=== PATIENT | female | born 1960 | race Caucasian/White ===

== ENCOUNTER → 2017-11-23 16:36 | Outpatient (CLI) | payer OTHER, SELFPAY ==
[2017-11-23 17:54] LABS: Anion Gap 9 (5-15); BUN 15 mg/dL (7-18); BUN/Creat Ratio 17.7 RATIO (10-20); Calcium,Total 8.9 mg/dL (8.5-10.1); Chloride 99 mmol/L (98-107); Creatinine, Serum 0.85 mg/dL (0.55-1.02); EST Glomerular Filtration Rate 74 mL/min (>60); Est Glom Filt Rate - Afr Amer 90 mL/min (>60); Glucose 141 mg/dL (74-106); Potassium 3.2 mmol/L (3.5-5.1); Sodium Level 138 mmol/L (136-145)
[2017-11-23 18:00] LABS: Hemoglobin A1c 8.7 % (4.2-6.3)
== END ==
PROVIDERS: Family Provider Internal Medicine; PCP Internal Medicine; Visit Provider Internal Medicine
DX: I10 Essential (primary) hypertension (principal); E11.9 Type 2 diabetes mellitus without complications
CPT/HCPCS: 36415; 80048; 83036

== ENCOUNTER → 2017-11-27 15:58 | Outpatient (CLI) | payer OTHER, SELFPAY ==
[2017-11-27 19:04] LABS: Microalbumin,Random Urine 5.3 mg/L (NO RANGE EST.); Microalbumin:Creatinine Ratio 20.8 mg/g CRE (<30 mg/g CRE)
== END ==
PROVIDERS: Family Provider Internal Medicine; PCP Internal Medicine; Visit Provider Internal Medicine
DX: E11.9 Type 2 diabetes mellitus without complications (principal)
CPT/HCPCS: 82043; 82570

== ENCOUNTER → 2018-08-14 12:01 | Outpatient (CLI) | payer OTHER, SELFPAY ==
[2018-08-14 14:06] LABS: ALB/GLOB Ratio 0.8 RATIO (0.9-2.4); AST(SGOT) 11 U/L (15-37); Alanine Aminotransfer ALT/SGPT 14 U/L (13-56); Albumin, Serum 3.2 g/dL (3.2-5.0); Alkaline Phosphatase 79 U/L (45-117); Anion Gap 11 (5-15); BUN 18 mg/dL (7-18); BUN/Creat Ratio 32.8 RATIO (10-20); Calcium,Total 9.1 mg/dL (8.5-10.1); Chloride 103 mmol/L (98-107); Creatinine, Serum 0.55 mg/dL (0.55-1.02); EST Glomerular Filtration Rate 122 mL/min (>60); Est Glom Filt Rate - Afr Amer 147 mL/min (>60); Globulin 3.8 g/dL (2.2-4.2); Glucose 110 mg/dL (74-106); Potassium 3.7 mmol/L (3.5-5.1); Sodium Level 142 mmol/L (136-145)
[2018-08-14 14:09] LABS: Hemoglobin A1c 6.3 % (4.2-6.3)
[2018-08-16 11:20] LABS: Cholesterol 136 mg/dL (200); High Density Lipoprotein 43 mg/dL; Triglycerides 146 mg/dL; Very Low Density Lipoprotein 29 mg/dL (5-40)
== END ==
PROVIDERS: Family Provider Internal Medicine; PCP Internal Medicine; Referring Provider Internal Medicine; Visit Provider Internal Medicine
DX: Z00.00 Encounter for general adult medical examination without abnormal findings (principal)
CPT/HCPCS: 36415; 80053; 80061; 83036

== ENCOUNTER → 2018-09-12 08:35 | Outpatient (CLI) | payer OTHER, SELFPAY ==
--- NOTE | 2018-09-12 08:37 | BI_ITS ---
MAMMOGRAPHY - BILATERAL SCREENING REASON FOR EXAM: Female, 58 years old. Routine annual screening examination. PERTINENT HISTORY: Mother with breast cancer. TECHNIQUE: Digital bilateral breast carmela (3D mammographic acquisition) in the CC and MLO projections. 2-D mediolateral oblique (MLO) and craniocaudad (CC) views of both breasts were obtained. CAD: Full Field Digital Mammography with Computer Added Detection was performed. COMPARISON: Comparison is made with prior study dated August 29, 2017 and August 30, 2016. FINDINGS: Breast Composition: The breasts are heterogeneously dense, which may obscure small masses. There are no dominant masses or suspicious calcifications. No other significant abnormalities are identified. There has been no significant change since the prior study. BI/SCREENING MAMM (CAD), BILAT IMPRESSION: Stable bilateral screening mammogram. Yearly follow-up mammogram recommended. (A) ASSESSMENT CATEGORY: BIRADS Category 1: Negative. A letter regarding these results will be sent to the patient by the facility within 30 days. Approximately 10% of breast cancers are not detected by mammography. A normal mammogram should not delay biopsy of a clinically suspicious abnormality. [id number] Electronically Signed: Kiran Brooks MD at 10:13 EST Tel [phone], Service support ,
== END ==
PROVIDERS: Family Provider Internal Medicine; PCP Internal Medicine; Visit Provider Internal Medicine
DX: Z12.31 Encounter for screening mammogram for malignant neoplasm of breast (principal)
CPT/HCPCS: 77063; 77067

== ENCOUNTER → 2019-07-23 | Outpatient (CLI) | payer OTHER, SELFPAY ==
[2019-07-23 13:36] VITALS: BMI 38.4
[2019-07-23 15:34] LABS: Absolute Lymphocyte Count 0.69 X10^3/uL (0.83-4.51); Absolute Neutrophil Count 4.1 X10^3/uL (2.0-7.7); Basophil# 0.02 X10^3/uL; Basophil% 0.3 % (0-1); Eosinophils% 3.5 % (0-5); Hematocrit 41.8 % (37-47); Hemoglobin 12.7 g/dL (12.0-15.0); Lymphocyte # 0.69 X10^3/ul (4.0); Mean Corp Hgb Conc 30.4 g/dL (32-36); Mean Corpuscular Hgb 26.5 pg (27.0-32.0); Mean Corpuscular Volume 87.1 fL (81-99); Mean Platelet Vol. 9.8 fl (6.2-12.0); Monocyte# 0.68 X10^3/uL; Monocyte% 11.8 % (0-10); NRBC Flagged by Analyzer 0 % (0-5); Neutrophil # 4.13 X10^3/uL (2.7-7.7); Neutrophil % 71.7 % (47-70); Platelet Count 233 K/mm3 (150-450); RBC Distribution Width CV 14.5 % (11.6-14.6); RBC Distribution Width SD 46.1 fl (35.1-43.9); White Blood Count 5.8 K/mm3 (4.4-11.0)
[2019-07-23 16:04] LABS: ALB/GLOB Ratio 0.7 RATIO (0.9-2.4); AST(SGOT) 17 U/L (15-37); Alanine Aminotransfer ALT/SGPT 19 U/L (13-56); Albumin, Serum 3.3 g/dL (3.2-5.0); Alkaline Phosphatase 85 U/L (45-117); Anion Gap 6 (5-15); BUN 13 mg/dL (7-18); BUN/Creat Ratio 18.5 RATIO (10-20); Calcium,Total 9.3 mg/dL (8.5-10.1); Chloride 99 mmol/L (98-107); Cholesterol 162 mg/dL (200); EST Glomerular Filtration Rate 91 mL/min (>60); Est Glom Filt Rate - Afr Amer 110 mL/min (>60); Globulin 4.5 g/dL (2.2-4.2); Glucose 128 mg/dL (74-106); High Density Lipoprotein 41 mg/dL; Potassium 3.8 mmol/L (3.5-5.1); Protein, Total 7.8 g/dL (6.4-8.2); Sodium Level 138 mmol/L (136-145); Triglycerides 184 mg/dL; Very Low Density Lipoprotein 37 mg/dL (5-40)
[2019-07-23 16:14] LABS: Hemoglobin A1c 8.1 % (4.2-6.3)
== END | disposition home or self-care (01) ==
LOC: MTLAB 14:24
PROVIDERS: Family Provider Internal Medicine; PCP Internal Medicine; Referring Provider Internal Medicine; Visit Provider Internal Medicine
DX: Z00.00 Encounter for general adult medical examination without abnormal findings (principal); E11.9 Type 2 diabetes mellitus without complications
CPT/HCPCS: 80053; 80061; 83036; 85025

== ENCOUNTER → 2019-09-13 07:00 | Outpatient (CLI) | payer OTHER, SELFPAY ==
[2019-07-23 13:36] VITALS: BMI 38.4
--- NOTE | 2019-09-13 07:02 | BI_ITS ---
MAMMOGRAPHY - BILATERAL SCREENING REASON FOR EXAM: Female, 59 years old. Routine annual screening examination. PERTINENT HISTORY: Mother with breast cancer. TECHNIQUE: Digital bilateral breast danii (3D mammographic acquisition) in the CC and MLO projections. 2-D mediolateral oblique (MLO) and craniocaudad (CC) views of both breasts were obtained. CAD: Full Field Digital Mammography with Computer Added Detection was performed. COMPARISON: Comparison is made with prior study dated September 12, 2018 and August 29, 2017. FINDINGS: Breast Composition: The breasts are heterogeneously dense, which may obscure small masses. There are no dominant masses or suspicious calcifications. No other significant abnormalities are identified. There has been no significant change since the prior study. BI/SCREEN MAMM (CAD) W/DANII BILAT IMPRESSION: Stable bilateral screening mammogram. Yearly follow-up mammogram recommended. (A) ASSESSMENT CATEGORY: BIRADS Category 1: Negative. A letter regarding these results will be sent to the patient by the facility within 30 days. Approximately 10% of breast cancers are not detected by mammography. A normal mammogram should not delay biopsy of a clinically suspicious abnormality. [id number] Electronically Signed: Kiran Brooks, at 8:34 EST , Service support ,
== END ==
PROVIDERS: Family Provider Internal Medicine; PCP Internal Medicine; Referring Provider Internal Medicine; Visit Provider Internal Medicine
DX: Z12.31 Encounter for screening mammogram for malignant neoplasm of breast (principal)
CPT/HCPCS: 77063; 77067

== ENCOUNTER → 2020-04-24 16:25 | Outpatient (CLI) | payer OTHER, SELFPAY ==
[2019-07-23 13:36] VITALS: BMI 38.4
--- NOTE | 2020-04-24 16:29 | RAD_ITS ---
STUDY: X-RAY - RIGHT FOOT CLINICAL: Female, 59 years old. Pain. Cellulitis of the great toe. TECHNIQUE: 3 view(s) of the foot. COMPARISON: July 25, 2017. FINDINGS: There is a plantar calcaneal spur. Normal talus and tarsal bones. Mild arthrosis of the visualized subtalar, talonavicular, calcaneocuboid, tarsal and tarsometatarsal articulations. Normal metatarsi. There is degenerative arthrosis of the metatarsophalangeal joint of the hallux . Normal tibial and fibular sesamoid bones. There is flexion deformity of the interphalangeal joint. Normal phalanges of the great toe. Normal second through fifth metatarsophalangeal joints. There is Hammer toe deformity of the second through fifth toes. There is diffuse soft tissue swelling over the forefoot. RAD/Foot min 3 Views IMPRESSION: Stable degenerative changes of the foot. There is no evidence of osteomyelitis. Electronically Signed: Antonio Patterson DO at 16:55 EDT Tel [phone], Service support ,
== END ==
PROVIDERS: PCP Internal Medicine; Referring Provider Podiatrist; Visit Provider Podiatrist
DX: L97.512 Non-pressure chronic ulcer of other part of right foot with fat layer exposed (principal)
CPT/HCPCS: 73630

== ENCOUNTER → 2020-08-18 11:35 | Outpatient (CLI) | payer OTHER, SELFPAY ==
[2020-08-18 15:26] LABS: Absolute Lymphocyte Count 0.81 X10^3/uL (0.83-4.51); Absolute Neutrophil Count 3.4 X10^3/uL (2.0-7.7); Basophil# 0.04 X10^3/uL; Basophil% 0.8 % (0-1); Eosinophil# 0.14 X10^3/uL; Eosinophils% 2.8 % (0-5); Hematocrit 43.3 % (37-47); Hemoglobin 13.5 g/dL (12.0-15.0); Lymphocyte # 0.81 X10^3/ul (4.0); Lymphocyte % 16.4 % (19-41); Mean Corp Hgb Conc 31.2 g/dL (32-36); Mean Corpuscular Hgb 28.1 pg (27.0-32.0); Mean Platelet Vol. 10.1 fl (6.2-12.0); Monocyte# 0.57 X10^3/uL; Monocyte% 11.5 % (0-10); NRBC Flagged by Analyzer 0 % (0-5); Neutrophil # 3.36 X10^3/uL (2.7-7.7); Neutrophil % 67.9 % (47-70); Platelet Count 211 K/mm3 (150-450); RBC Distribution Width CV 14.1 % (11.6-14.6); RBC Distribution Width SD 45.5 fl (35.1-43.9); Red Blood Count 4.81 M/mm3 (4.2-5.4)
[2020-08-18 15:45] LABS: Creatinine, Urine (random) < 13.00 mg/dL (NO RANGE EST.); Microalbumin,Random Urine 7.2 mg/L (NO RANGE EST.)
[2020-08-18 15:53] LABS: ALB/GLOB Ratio 0.9 RATIO (0.9-2.4); AST(SGOT) 15 U/L (15-37); Alanine Aminotransfer ALT/SGPT 21 U/L (13-56); Albumin, Serum 3.4 g/dL (3.2-5.0); Alkaline Phosphatase 79 U/L (45-117); Anion Gap 7 (5-15); BUN 17 mg/dL (7-18); BUN/Creat Ratio 32.2 RATIO (10-20); Calcium,Total 9.4 mg/dL (8.5-10.1); Chloride 105 mmol/L (98-107); Cholesterol 149 mg/dL (200); Creatinine, Serum 0.53 mg/dL (0.55-1.02); EST Glomerular Filtration Rate 126 mL/min (>60); Est Glom Filt Rate - Afr Amer 153 mL/min (>60); Globulin 3.9 g/dL (2.2-4.2); Glucose 107 mg/dL (74-106); High Density Lipoprotein 47 mg/dL; Potassium 3.7 mmol/L (3.5-5.1); Protein, Total 7.3 g/dL (6.4-8.2); Sodium Level 139 mmol/L (136-145); Triglycerides 189 mg/dL; Very Low Density Lipoprotein 38 mg/dL (5-40)
[2020-08-18 16:06] LABS: Hemoglobin A1c 6.9 % (3.8-5.6)
== END ==
PROVIDERS: PCP Internal Medicine; Referring Provider Internal Medicine; Visit Provider Internal Medicine
DX: E78.5 Hyperlipidemia, unspecified (principal); E11.9 Type 2 diabetes mellitus without complications; I10 Essential (primary) hypertension
CPT/HCPCS: 36415; 80053; 80061; 82043; 82570; 83036; 85025

== ENCOUNTER → 2020-08-18 14:11 | Outpatient (CLI) | payer OTHER, SELFPAY ==
[2020-08-18 13:35] VITALS: BMI 40.9
[2020-08-20 12:31] LABS: Cancer Antigen 125 14.8 U/mL (0.0-38.1)
[2020-08-24 12:57] LABS: HPV APTIMA, High Risk Negative (Negative)
== END ==
PROVIDERS: PCP Internal Medicine; Referring Provider Obstetrics & Gynecology; Visit Provider Obstetrics & Gynecology
DX: C54.1 Malignant neoplasm of endometrium (principal)
CPT/HCPCS: 36415; 86304; 87624; 88175; G0145

== ENCOUNTER → 2020-08-21 06:45 | Outpatient (CLI) | payer OTHER, SELFPAY ==
[2020-08-18 13:35] VITALS: BMI 40.9
--- NOTE | 2020-08-21 06:46 | CT_ITS ---
STUDY: CT ABDOMEN AND PELVIS WITH CONTRAST REASON FOR EXAM: Female, 60 years old. ENDOMETRIAL CA F/U. 3 YEARS TREATMENT WAS TOTAL HYSTERECTOMY WITH CHEMO AND RADIATION. PRIOR DIAPHRAGMATIC HERNIA REPAIR RADIATION DOSAGE (If Supplied By Facility): CTDIvol = ( 19.85 ) mGy, DLP = ( 1155.85 ) mGycm TECHNIQUE: Transaxial images were obtained from the dome of the diaphragm to the symphysis pubis with oral contrast. Oral and amp; IV Gastrografin and amp; 100mL Isovue-300 was administered. Sagittal and coronal images were reconstructed. Individualized dose optimization techniques were used for this CT. COMPARISON: Comparison is made with prior study dated 07/25/2017. FINDINGS: There is a 1 cm pleural-based nodule in the lateral aspect of the left lower lobe with the linear densities adjacent to it. This may represent a focal area of fibrosis. A repeat CT scan of the thorax in 6 months is recommended for further evaluation. The visualized portions of the heart are within normal limits. There is decreased attenuation of the liver consistent with steatosis. Hepatomegaly. Normal gallbladder and extrahepatic biliary system. Normal spleen. There is diffuse atrophy of the pancreas. Normal bilateral adrenal glands. Normal right kidney. Normal left kidney. There is a small hiatal hernia. Normal small intestine. There are multiple colonic diverticula consistent with diverticulosis. There is non-visualization of the appendix. There is scattered atherosclerotic calcification of the abdominal aorta, without a demonstrated aneurysm. Normal inferior vena cava. There is borderline retroperitoneal lymphadenopathy with enlarged nodes no greater than 10mm in the short axis diameter. Normal urinary bladder. There is absence of the uterus consistent with a prior hysterectomy. There is a large ventral hernia overlying the lower abdomen upper pelvic region containing multiple small bowel loops. The small bowel loops are not dilated. There are degenerative changes of the visualized lumbar spine. Prior open reduction and internal fixation of the left acetabulum. Marked degree of osteoarthritis involving the left hip joint with marginal osteophyte formation. CT/Abdomen/Pelvis WITH Contrast IMPRESSION: Status post hysterectomy. Hepatomegaly and fatty infiltration of the liver. Electronically Signed: Kiran Brooks, at 11:13 EST , Service support ,
== END ==
PROVIDERS: PCP Internal Medicine; Referring Provider Obstetrics & Gynecology; Visit Provider Obstetrics & Gynecology
DX: C54.1 Malignant neoplasm of endometrium (principal)
CPT/HCPCS: 74177; Q9967

== ENCOUNTER → 2020-09-18 07:03 | Outpatient (CLI) | payer OTHER, SELFPAY ==
[2020-08-25 13:39] VITALS: BMI 41.1
--- NOTE | 2020-09-18 07:04 | BI_ITS ---
MAMMOGRAPHY - BILATERAL SCREENING REASON FOR EXAM: Female, 60 years old. Routine annual screening examination. PERTINENT HISTORY: Mother with breast cancer. TECHNIQUE: Digital bilateral breast danii (3D mammographic acquisition) in the CC and MLO projections. 2-D mediolateral oblique (MLO) and craniocaudad (CC) views of both breasts were obtained. CAD: Full Field Digital Mammography with Computer Added Detection was performed. COMPARISON: Comparison is made with prior study dated 09/13/2019 and 09/12/2018. FINDINGS: Breast Composition: The breasts are heterogeneously dense, which may obscure small masses. There are no dominant masses or suspicious calcifications. Stable small benign appearing bilateral axillary lymph nodes. No other significant abnormalities are identified. There has been no significant change since the prior study. BI/SCREEN MAMM (CAD) W/DANII BILAT IMPRESSION: Stable bilateral screening mammogram. Yearly follow-up mammogram recommended. (A) ASSESSMENT CATEGORY: BIRADS Category 2: Benign. A letter regarding these results will be sent to the patient by the facility within 30 days. Approximately 10% of breast cancers are not detected by mammography. A normal mammogram should not delay biopsy of a clinically suspicious abnormality. [id number] Electronically Signed: Kiran Brooks, at 10:39 EST , Service support ,
== END ==
PROVIDERS: PCP Internal Medicine; Referring Provider Internal Medicine; Visit Provider Internal Medicine
DX: Z12.31 Encounter for screening mammogram for malignant neoplasm of breast (principal)
CPT/HCPCS: 77063; 77067

== ENCOUNTER → 2021-02-12 08:00 | Outpatient (CLI) | payer OTHER, SELFPAY ==
[2020-08-25 13:39] VITALS: BMI 41.1
--- NOTE | 2021-02-12 08:05 | CT_ITS ---
STUDY: CT CHEST, ABDOMEN T PELVIS WITH CONTRAST REASON FOR EXAM: Female, 60 years old. MONITORING ENDOMETRIAL CANCER RADIATION DOSAGE (If Supplied By Facility): CTDIvol = ( 30.08 ) mGy, DLP = ( 1923.58 ) mGycm TECHNIQUE: Transaxial imaging was performed following intravenous administration of IV 100mL Isovue-300. Individualized dose optimization techniques were used for this CT. COMPARISON: Comparison is made with prior CT scan of the abdomen dated 08/21/2020. FINDINGS: CHEST There is a 2 cm Bard 1.9 cm hypodense nodule in the upper pole of the right lobe of the thyroid. This extends into the mid and lower pole of the right lobe of the thyroid gland. The thyroid gland is enlarged. Benign appearing bilateral axillary Increased markings at the right lung base. Increased markings at the left lung base as well. These are more prominent. There is evidence of a 1.6 cm x 1.2 cm pleural-based nodule in the posterolateral aspect of the left lower lobe. This may represent a focal area of scarring. A [address] scan follow-up is recommended. There is no demonstrated pleural abnormality. There are calcifications of the coronary arteries. Normal mediastinum. Normal hilar regions. Normal unenhanced pulmonary arteries. Mild degree of calcific plaques at the level of the aortic arch. There are multi-level degenerative changes of the thoracic spine. There is no demonstrated abnormality of the visualized upper abdomen. ABDOMEN There is decreased attenuation of the liver consistent with steatosis. Normal gallbladder and extrahepatic biliary system. Normal spleen. Normal pancreas. Normal bilateral adrenal glands. Normal right kidney. Normal left kidney. Normal visualized stomach. Normal small intestine. Large amount of fecal material is seen in the colon. There is non-visualization of the appendix. There is diffuse atherosclerotic calcification of the abdominal aorta, without a demonstrated aneurysm. Normal inferior vena cava. Normal retroperitoneum. Large lower anterior abdominal wall hernia. Normal osseous structures. PELVIS Normal urinary bladder. The patient is status post hysterectomy. Normal visualized small intestine. Normal visualized colon. There is no pelvic fluid. There is no pelvic lymphadenopathy or mass lesion. Normal visualized pelvic arteries. Prior ORIF of the left acetabulum. 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 CT/CT Chest, Abd, Pel w/Contrast IMPRESSION: Stable examination. Electronically Signed: Kiran Brooks MD at 10:17 EDT , Service support ,
[2021-02-12 08:31] LABS: CREATININE FINGERSTICK 1.3 mg/dL (0.55-1.02)
[2021-02-12 16:32] LABS: Absolute Lymphocyte Count 0.92 X10^3/uL (0.83-4.51); Absolute Neutrophil Count 4.3 X10^3/uL (2.0-7.7); Basophil# 0.03 X10^3/uL; Basophil% 0.5 % (0-1); Eosinophil# 0.13 X10^3/uL; Eosinophils% 2.1 % (0-5); Hematocrit 42.5 % (37-47); Hemoglobin 13.4 g/dL (12.0-15.0); Lymphocyte # 0.92 X10^3/ul (0.83-4.51); Lymphocyte % 14.8 % (19-41); Mean Corp Hgb Conc 31.5 g/dL (32-36); Mean Corpuscular Volume 88.9 fL (81-99); Mean Platelet Vol. 9.9 fl (6.2-12.0); Monocyte# 0.75 X10^3/uL; Monocyte% 12.1 % (0-10); NRBC Flagged by Analyzer 0 % (0-5); Neutrophil # 4.34 X10^3/uL (2.7-7.7); Platelet Count 220 K/mm3 (150-450); RBC Distribution Width CV 13.4 % (11.6-14.6); RBC Distribution Width SD 43.7 fl (35.1-43.9); Red Blood Count 4.78 M/mm3 (4.2-5.4); White Blood Count 6.2 K/mm3 (4.4-11.0)
[2021-02-12 17:12] LABS: ALB/GLOB Ratio 0.8 RATIO (0.9-2.4); AST(SGOT) 14 U/L (15-37); Alanine Aminotransfer ALT/SGPT 21 U/L (13-56); Albumin, Serum 3.2 g/dL (3.2-5.0); Alkaline Phosphatase 85 U/L (45-117); Anion Gap 7 (5-15); BUN 14 mg/dL (7-18); BUN/Creat Ratio 20.8 RATIO (10-20); Calcium,Total 9.2 mg/dL (8.5-10.1); Chloride 103 mmol/L (98-107); Creatinine, Serum 0.67 mg/dL (0.55-1.02); EST Glomerular Filtration Rate 96 mL/min (>60); Est Glom Filt Rate - Afr Amer 116 mL/min (>60); Glucose 155 mg/dL (74-106); LDH 157 U/L (84-246); Potassium 3.6 mmol/L (3.5-5.1); Protein, Total 7.2 g/dL (6.4-8.2); Sodium Level 138 mmol/L (136-145)
[2021-02-12 23:07] LABS: Xtra Tube EP Lab EXTRA TUBE
[2021-02-14 13:48] LABS: Cancer Antigen 125 13.7 U/mL (0.0-38.1)
== END ==
PROVIDERS: PCP Internal Medicine; Referring Provider Internal Medicine Medical Oncology; Visit Provider Internal Medicine Medical Oncology
DX: C54.1 Malignant neoplasm of endometrium (principal)
CPT/HCPCS: 36415; 71260; 74177; 80053; 83615; 85025; 86304; Q9967

== ENCOUNTER → 2021-08-27 10:04 | Outpatient (CLI) | payer OTHER, SELFPAY ==
[2021-08-27 12:34] LABS: Absolute Lymphocyte Count 0.92 X10^3/uL (0.83-4.51); Absolute Neutrophil Count 3.7 X10^3/uL (2.0-7.7); Basophil# 0.04 X10^3/uL; Basophil% 0.7 % (0-1); Eosinophil# 0.12 X10^3/uL; Eosinophils% 2.2 % (0-5); Hematocrit 43.9 % (37-47); Hemoglobin 13.9 g/dL (12.0-15.0); Lymphocyte # 0.92 X10^3/ul (0.83-4.51); Lymphocyte % 17.1 % (19-41); Mean Corp Hgb Conc 31.7 g/dL (32-36); Mean Corpuscular Volume 88.5 fL (81-99); Mean Platelet Vol. 10.2 fl (6.2-12.0); Monocyte# 0.54 X10^3/uL; Monocyte% 10.1 % (0-10); NRBC Flagged by Analyzer 0 % (0-5); Neutrophil # 3.72 X10^3/uL (2.7-7.7); Neutrophil % 69.3 % (47-70); Platelet Count 216 K/mm3 (150-450); RBC Distribution Width CV 13.5 % (11.6-14.6); RBC Distribution Width SD 43.8 fl (35.1-43.9); Red Blood Count 4.96 M/mm3 (4.2-5.4); White Blood Count 5.4 K/mm3 (4.4-11.0)
[2021-08-27 12:50] LABS: ALB/GLOB Ratio 0.8 RATIO (0.9-2.4); AST(SGOT) 20 U/L (15-37); Alanine Aminotransfer ALT/SGPT 24 U/L (13-56); Albumin, Serum 3.3 g/dL (3.2-5.0); Alkaline Phosphatase 82 U/L (45-117); Anion Gap 5 (5-15); BUN 12 mg/dL (7-18); Calcium,Total 9.2 mg/dL (8.5-10.1); Chloride 103 mmol/L (98-107); Cholesterol 152 mg/dL (200); Creatinine, Serum 0.63 mg/dL (0.55-1.02); EST Glomerular Filtration Rate 102 mL/min (>60); Est Glom Filt Rate - Afr Amer 124 mL/min (>60); Globulin 4.2 g/dL (2.2-4.2); Glucose 170 mg/dL (74-106); High Density Lipoprotein 45 mg/dL; Potassium 3.9 mmol/L (3.5-5.1); Protein, Total 7.5 g/dL (6.4-8.2); Sodium Level 138 mmol/L (136-145); Triglycerides 194 mg/dL; Very Low Density Lipoprotein 39 mg/dL (5-40)
== END ==
PROVIDERS: PCP Internal Medicine; Referring Provider Internal Medicine; Visit Provider Internal Medicine
DX: Z00.00 Encounter for general adult medical examination without abnormal findings (principal); Z85.42 Personal history of malignant neoplasm of other parts of uterus
CPT/HCPCS: 36415; 80053; 80061; 85025

== ENCOUNTER 2021-11-26 07:51 | Outpatient (CLI) | payer OTHER, SELFPAY ==
--- NOTE | 2021-11-26 07:54 | BI_ITS ---
MAMMOGRAPHY - BILATERAL SCREENING REASON FOR EXAM: Female, 61 years old. Routine annual screening examination. PERTINENT HISTORY: Mother with breast cancer. TECHNIQUE: Digital bilateral breast danii (3D mammographic acquisition) in the CC and MLO projections. 2-D mediolateral oblique (MLO) and craniocaudad (CC) views of both breasts were obtained. CAD: Full Field Digital Mammography with Computer Added Detection was performed. COMPARISON: Comparison is made with prior study dated 09/18/2020 and 09/13/2019. FINDINGS: Breast Composition: The breasts are heterogeneously dense, which may obscure small masses. There are no dominant masses or suspicious calcifications. Stable small benign appearing bilateral axillary No other significant abnormalities are identified. There has been no significant change since the prior study. BI/SCRN MAMM (CAD)W/DANII BILAT IMPRESSION: Stable bilateral screening mammogram. Yearly follow-up mammogram recommended. (A) ASSESSMENT CATEGORY: BIRADS Category 2: Benign. A letter regarding these results will be sent to the patient by the facility within 30 days. Approximately 10% of breast cancers are not detected by mammography. A normal mammogram should not delay biopsy of a clinically suspicious abnormality. [id number] Electronically Signed: Kiran Brooks MD at 10:05 EST ,
== END 2021-11-26 23:59 | disposition home or self-care (01) ==
LOC: OPBI 07:53
PROVIDERS: PCP Internal Medicine; Referring Provider Internal Medicine; Visit Provider Internal Medicine
DX: Z12.31 Encounter for screening mammogram for malignant neoplasm of breast (principal)
CPT/HCPCS: 77063; 77067

== ENCOUNTER → 2022-03-04 | Outpatient (CLI) | payer OTHER, SELFPAY ==
[2022-03-11 18:29] LABS: HPV Reflexed? NOT INDICATED
== END | disposition home or self-care (01) ==
LOC: LABSPEC 15:20
PROVIDERS: PCP Internal Medicine; Visit Provider Obstetrics & Gynecology
DX: C54.1 Malignant neoplasm of endometrium (principal)
CPT/HCPCS: 88175; G0145

== ENCOUNTER → 2022-08-17 | Outpatient (CLI) | payer OTHER, SELFPAY ==
[2022-08-17 16:40] LABS: Absolute Lymphocyte Count 0.96 X10^3/uL (0.83-4.51); Absolute Neutrophil Count 4.2 X10^3/uL (2.0-7.7); Basophil# 0.03 X10^3/uL; Basophil% 0.5 % (0-1); Eosinophil# 0.22 X10^3/uL; Eosinophils% 3.6 % (0-5); Hematocrit 43.5 % (37-47); Hemoglobin 13.6 g/dL (12.0-15.0); Lymphocyte # 0.96 X10^3/ul (0.83-4.51); Lymphocyte % 15.8 % (19-41); Mean Corp Hgb Conc 31.3 g/dL (32-36); Mean Corpuscular Hgb 27.8 pg (27.0-32.0); Mean Platelet Vol. 10.5 fl (6.2-12.0); Monocyte# 0.61 X10^3/uL; Monocyte% 10.1 % (0-10); NRBC Flagged by Analyzer 0 % (0-5); Neutrophil # 4.17 X10^3/uL (2.7-7.7); Neutrophil % 68.8 % (47-70); Platelet Count 232 K/mm3 (150-450); RBC Distribution Width CV 14.3 % (11.6-14.6); RBC Distribution Width SD 46.1 fl (35.1-43.9); Red Blood Count 4.89 M/mm3 (4.2-5.4); White Blood Count 6.1 K/mm3 (4.4-11.0)
[2022-08-17 16:58] LABS: ALB/GLOB Ratio 0.8 RATIO (0.9-2.4); AST(SGOT) 19 U/L (15-37); Alanine Aminotransfer ALT/SGPT 23 U/L (13-56); Albumin, Serum 3.4 g/dL (3.2-5.0); Alkaline Phosphatase 71 U/L (45-117); Anion Gap 7 (5-15); BUN 14 mg/dL (7-18); BUN/Creat Ratio 26.6 RATIO (10-20); Calcium,Total 9.6 mg/dL (8.5-10.1); Chloride 105 mmol/L (98-107); Cholesterol 144 mg/dL (200); Creatinine, Serum 0.53 mg/dL (0.55-1.02); EST Glomerular Filtration Rate 126 mL/min (>60); Est Glom Filt Rate - Afr Amer 152 mL/min (>60); Globulin 4.1 g/dL (2.2-4.2); Glucose 94 mg/dL (74-106); High Density Lipoprotein 48 mg/dL; Potassium 3.6 mmol/L (3.5-5.1); Protein, Total 7.5 g/dL (6.4-8.2); Sodium Level 140 mmol/L (136-145); Triglycerides 149 mg/dL; Very Low Density Lipoprotein 30 mg/dL (5-40)
[2022-08-17 17:04] LABS: Hemoglobin A1c 6.5 % (3.8-5.6)
== END | disposition home or self-care (01) ==
LOC: BIMLAB 14:45
PROVIDERS: PCP Internal Medicine; Referring Provider Internal Medicine; Visit Provider Internal Medicine
DX: Z00.00 Encounter for general adult medical examination without abnormal findings (principal)
CPT/HCPCS: 36415; 80053; 80061; 83036; 85025

== ENCOUNTER → 2022-09-09 | Outpatient (CLI) | payer OTHER, SELFPAY | END | disposition home or self-care (01) | PROVIDERS: PCP Internal Medicine; Visit Provider Obstetrics & Gynecology | DX: R32 Unspecified urinary incontinence (principal) | CPT/HCPCS: 87086; 87088 ==

== ENCOUNTER → 2022-12-02 | Outpatient (CLI) | payer OTHER, SELFPAY ==
--- NOTE | 2022-12-02 08:42 | BI_ITS ---
MAMMOGRAPHY - BILATERAL SCREENING REASON FOR EXAM: Female, 62 years old. Routine annual screening examination. PERTINENT HISTORY: Mother with breast cancer. TECHNIQUE: Digital bilateral breast danii (3D mammographic acquisition) in the CC and MLO projections. 2-D mediolateral oblique (MLO) and craniocaudad (CC) views of both breasts were obtained. CAD: Full Field Digital Mammography with Computer Added Detection was performed. COMPARISON: Comparison is made with prior study dated 11/26/2021 and 09/18/2020. FINDINGS: Breast Composition: The breasts are heterogeneously dense, which may obscure small masses. There are no dominant masses or suspicious calcifications. Stable small benign-appearing bilateral axillary lymph nodes. No other significant abnormalities are identified. There has been no significant change since the prior study. BI/SCRN MAMM (CAD)W/DANII BILAT IMPRESSION: Stable bilateral screening mammogram. Yearly follow-up mammogram recommended. (A) ASSESSMENT CATEGORY: BIRADS Category 2: Benign. A letter regarding these results will be sent to the patient by the facility within 30 days. Approximately 10% of breast cancers are not detected by mammography. A normal mammogram should not delay biopsy of a clinically suspicious abnormality. [id number] Electronically Signed: Kiran Brooks MD at 9:54 EST ,
== END | disposition home or self-care (01) ==
LOC: OPBI 08:41
PROVIDERS: PCP Internal Medicine; Visit Provider Obstetrics & Gynecology
DX: Z12.31 Encounter for screening mammogram for malignant neoplasm of breast (principal)
CPT/HCPCS: 77063; 77067

== ENCOUNTER → 2023-06-29 | Outpatient (CLI) | payer OTHER, SELFPAY ==
[2023-06-29 17:05] LABS: Anion Gap 7 (5-15); BUN 12 mg/dL (7-18); BUN/Creat Ratio 21.2 RATIO (10-20); Calcium,Total 9.4 mg/dL (8.5-10.1); Chloride 103 mmol/L (98-107); Creatinine, Serum 0.57 mg/dL (0.55-1.02); EST Glomerular Filtration Rate 115 mL/min (>60); Est Glom Filt Rate - Afr Amer 140 mL/min (>60); Glucose 125 mg/dL (74-106); Potassium 3.8 mmol/L (3.5-5.1); Sodium Level 142 mmol/L (136-145)
[2023-06-29 17:13] LABS: Hemoglobin A1c 7.1 % (3.8-5.6)
== END | disposition home or self-care (01) ==
LOC: BIMLAB 15:24
PROVIDERS: PCP Internal Medicine; Referring Provider Internal Medicine; Visit Provider Internal Medicine
DX: E11.9 Type 2 diabetes mellitus without complications (principal)
CPT/HCPCS: 36415; 80048; 83036

== ENCOUNTER → 2023-08-21 | Outpatient (CLI) | payer OTHER, SELFPAY ==
[2023-08-21 17:05] LABS: Absolute Lymphocyte Count 1.05 X10^3/uL (0.83-4.51); Absolute Neutrophil Count 4.7 X10^3/uL (2.0-7.7); Basophil# 0.03 X10^3/uL; Basophil% 0.4 % (0-1); Hematocrit 45.3 % (37-47); Hemoglobin 14.4 g/dL (12.0-15.0); Lymphocyte # 1.05 X10^3/ul (0.83-4.51); Lymphocyte % 15.5 % (19-41); Mean Corp Hgb Conc 31.8 g/dL (32-36); Mean Corpuscular Hgb 28.5 pg (27.0-32.0); Mean Corpuscular Volume 89.5 fL (81-99); Mean Platelet Vol. 10.2 fl (6.2-12.0); Monocyte# 0.74 X10^3/uL; Monocyte% 10.9 % (0-10); NRBC Flagged by Analyzer 0 % (0-5); Neutrophil # 4.71 X10^3/uL (2.7-7.7); Neutrophil % 69.6 % (47-70); Platelet Count 244 K/mm3 (150-450); RBC Distribution Width CV 13.8 % (11.6-14.6); RBC Distribution Width SD 45.3 fl (35.1-43.9); Red Blood Count 5.06 M/mm3 (4.2-5.4); White Blood Count 6.8 K/mm3 (4.4-11.0)
[2023-08-21 17:20] LABS: ALB/GLOB Ratio 0.8 RATIO (0.9-2.4); AST(SGOT) 16 U/L (15-37); Alanine Aminotransfer ALT/SGPT 25 U/L (13-56); Albumin, Serum 3.4 g/dL (3.2-5.0); Alkaline Phosphatase 80 U/L (45-117); Anion Gap 8 (5-15); BUN 20 mg/dL (7-18); BUN/Creat Ratio 29.3 RATIO (10-20); Chloride 104 mmol/L (98-107); Cholesterol 141 mg/dL (200); Creatinine, Serum 0.68 mg/dL (0.55-1.02); EST Glomerular Filtration Rate 93 mL/min (>60); Est Glom Filt Rate - Afr Amer 112 mL/min (>60); Glucose 110 mg/dL (74-106); High Density Lipoprotein 41 mg/dL; Potassium 3.6 mmol/L (3.5-5.1); Protein, Total 7.4 g/dL (6.4-8.2); Sodium Level 139 mmol/L (136-145); Triglycerides 169 mg/dL; Very Low Density Lipoprotein 34 mg/dL (5-40)
== END | disposition home or self-care (01) ==
LOC: BIMLAB 15:32
PROVIDERS: PCP Internal Medicine; Referring Provider Internal Medicine; Visit Provider Internal Medicine
DX: Z00.00 Encounter for general adult medical examination without abnormal findings (principal)
CPT/HCPCS: 36415; 80053; 80061; 85025

== ENCOUNTER → 2023-12-08 | Outpatient (CLI) | payer OTHER, SELFPAY ==
--- NOTE | 2023-12-08 08:27 | BI_ITS ---
MAMMOGRAPHY - BILATERAL SCREENING REASON FOR EXAM: Female, 63 years old. Routine annual screening examination. PERTINENT HISTORY: Mother with breast cancer. History of uterine cancer. TECHNIQUE: Digital bilateral breast danii (3D mammographic acquisition) in the CC and MLO projections. 2-D mediolateral oblique (MLO) and craniocaudad (CC) views of both breasts were obtained. CAD: Full Field Digital Mammography with Computer Added Detection was performed. COMPARISON: Comparison is made with prior study dated December 02, 2022 and November 26, 2021. FINDINGS: Breast Composition: The breasts are heterogeneously dense, which may obscure small masses. There are no dominant masses or suspicious calcifications. No other significant abnormalities are identified. There has been no significant change since the prior study. BI/SCRN MAMM (CAD)W/DANII BILAT IMPRESSION: Stable bilateral screening mammogram. Yearly follow-up mammogram recommended. (A) ASSESSMENT CATEGORY: BIRADS Category 1: Negative. A letter regarding these results will be sent to the patient by the facility within 30 days. Approximately 10% of breast cancers are not detected by mammography. A normal mammogram should not delay biopsy of a clinically suspicious abnormality. [id number] Electronically Signed: Kiran Brooks MD at 9:11 EST ,
== END | disposition home or self-care (01) ==
LOC: OPBI 08:27
PROVIDERS: PCP Internal Medicine; Referring Provider Obstetrics & Gynecology; Visit Provider Obstetrics & Gynecology
DX: Z12.31 Encounter for screening mammogram for malignant neoplasm of breast (principal)
CPT/HCPCS: 77063; 77067

== ENCOUNTER → 2024-01-12 | Outpatient (CLI) | payer OTHER, SELFPAY ==
[2024-01-12 15:59] LABS: Hemoglobin A1c 8.5 % (3.8-5.6)
[2024-01-12 16:05] LABS: Anion Gap 8 (5-15); BUN 16 mg/dL (7-18); BUN/Creat Ratio 20.9 RATIO (10-20); Calcium,Total 9.7 mg/dL (8.5-10.1); Chloride 103 mmol/L (98-107); Creatinine, Serum 0.76 mg/dL (0.55-1.02); EST Glomerular Filtration Rate 82 mL/min (>60); Est Glom Filt Rate - Afr Amer 99 mL/min (>60); Glucose 144 mg/dL (74-106); Potassium 4.1 mmol/L (3.5-5.1); Sodium Level 142 mmol/L (136-145)
== END | disposition home or self-care (01) ==
LOC: BIMLAB 14:49
PROVIDERS: PCP Internal Medicine; Referring Provider Internal Medicine; Visit Provider Internal Medicine
DX: E11.42 Type 2 diabetes mellitus with diabetic polyneuropathy (principal)
CPT/HCPCS: 36415; 80048; 83036

== ENCOUNTER → 2024-08-23 | Outpatient (CLI) | payer OTHER, SELFPAY ==
[2024-08-23 15:23] LABS: Absolute Lymphocyte Count 1.07 X10^3/uL (0.83-4.51); Absolute Neutrophil Count 5.6 X10^3/uL (2.0-7.7); Basophil# 0.04 X10^3/uL; Basophil% 0.5 % (0-1); Eosinophil# 0.24 X10^3/uL; Eosinophils% 3.1 % (0-5); Hematocrit 45.4 % (37-47); Lymphocyte # 1.07 X10^3/ul (0.83-4.51); Lymphocyte % 13.8 % (19-41); Mean Corp Hgb Conc 30.8 g/dL (32-36); Mean Corpuscular Hgb 27.7 pg (27.0-32.0); Mean Corpuscular Volume 89.9 fL (81-99); Mean Platelet Vol. 10.2 fl (6.2-12.0); Monocyte# 0.78 X10^3/uL; NRBC Flagged by Analyzer 0 % (0-5); Neutrophil # 5.58 X10^3/uL (2.7-7.7); Neutrophil % 71.7 % (47-70); Platelet Count 259 K/mm3 (150-450); RBC Distribution Width CV 14.2 % (11.6-14.6); RBC Distribution Width SD 46.3 fl (35.1-43.9); Red Blood Count 5.05 M/mm3 (4.2-5.4); White Blood Count 7.8 K/mm3 (4.4-11.0)
[2024-08-23 15:36] LABS: ALB/GLOB Ratio 0.8 RATIO (0.9-2.4); AST(SGOT) 18 U/L (15-37); Alanine Aminotransfer ALT/SGPT 23 U/L (13-56); Albumin, Serum 3.2 g/dL (3.2-5.0); Alkaline Phosphatase 83 U/L (45-117); Anion Gap 7 (5-15); BUN 16 mg/dL (7-18); BUN/Creat Ratio 24.8 RATIO (10-20); Calcium,Total 9.6 mg/dL (8.5-10.1); Chloride 101 mmol/L (98-107); Cholesterol 141 mg/dL (200); Creatinine, Serum 0.64 mg/dL (0.55-1.02); EST Glomerular Filtration Rate 99 mL/min (>60); Est Glom Filt Rate - Afr Amer 120 mL/min (>60); Globulin 4.2 g/dL (2.2-4.2); Glucose 208 mg/dL (74-106); High Density Lipoprotein 40 mg/dL; Potassium 4.2 mmol/L (3.5-5.1); Protein, Total 7.4 g/dL (6.4-8.2); Sodium Level 137 mmol/L (136-145); Triglycerides 233 mg/dL; Very Low Density Lipoprotein 47 mg/dL (5-40)
[2024-08-23 16:00] LABS: Hemoglobin A1c 10.2 % (3.8-5.6)
== END | disposition home or self-care (01) ==
LOC: BIMLAB 13:24
PROVIDERS: PCP Internal Medicine; Referring Provider Internal Medicine; Visit Provider Internal Medicine
DX: Z00.00 Encounter for general adult medical examination without abnormal findings (principal); E11.42 Type 2 diabetes mellitus with diabetic polyneuropathy
CPT/HCPCS: 36415; 80053; 80061; 83036; 85025

== ENCOUNTER → 2024-09-27 | Outpatient (CLI) | payer OTHER, SELFPAY ==
[2024-09-29 06:37] LABS: Cancer Antigen 125 15.1 U/mL (0.0-38.1)
== END | disposition home or self-care (01) ==
LOC: BWCLAB 15:58
PROVIDERS: PCP Internal Medicine; Referring Provider Obstetrics & Gynecology; Visit Provider Obstetrics & Gynecology
DX: R60.9 Edema, unspecified (principal); Z85.42 Personal history of malignant neoplasm of other parts of uterus
CPT/HCPCS: 36415; 86304

== ENCOUNTER → 2024-12-13 | Outpatient (CLI) | payer OTHER, SELFPAY ==
--- NOTE | 2024-12-13 08:30 | BI_ITS ---
PROCEDURE: SCRN MAMM (CAD)W/DANII BILAT REASON FOR EXAM: F, Age 64 y/o , presents for annual screening mammogram. Family history of breast cancer in her mother at 60. TECHNIQUE: Bilateral screening digital breast tomosynthesis with 2D and 3D images. Computer aided detection. COMPARISON: 12/08/2023, 12/02/2022 FINDINGS: There are scattered areas of fibroglandular density. No suspicious masses, areas of developing architectural distortion, or suspicious calcifications. BI/SCRN MAMM (CAD)W/DANII BILAT IMPRESSION: There is no mammographic evidence of malignancy. BI-RADS 1: NEGATIVE. RECOMMEND ANNUAL MAMMOGRAPHIC SCREENING. Follow-up code: Routine Follow-up The patient will be notified of the results by letter. Reading Location: [id number]
== END | disposition home or self-care (01) ==
LOC: OPBI 08:25
PROVIDERS: PCP Internal Medicine; Referring Provider Obstetrics & Gynecology; Visit Provider Obstetrics & Gynecology
DX: Z12.31 Encounter for screening mammogram for malignant neoplasm of breast (principal)
CPT/HCPCS: 77063; 77067

== ENCOUNTER 2025-04-27 11:20 | Emergency (ER) | payer OTHER, SELFPAY ==
[2025-04-27] VITALS (8 sets, daily range): BP systolic 153–169; BP diastolic 61–80; PULSE 70–81; RESP 16–26; TEMP 36.7–36.8; O2SAT 93–97; BMI 45.7
--- NOTE | 2025-04-27 12:18 | RAD_ITS ---
PROCEDURE: CHEST PA AND LATERAL 04/27/2025 REASON FOR EXAM: CHEST PAIN TECHNIQUE: CHEST PA AND LATERAL COMPARISON: CT chest, abdomen and pelvis 02/12/2021. FINDINGS: Hardware: Scattered surgical clips along the left lateral chest. Heart: Stable moderate cardiomegaly. Mediastinum: There are atherosclerotic calcifications of the thoracic aorta. Lungs: Bibasilar atelectasis. Mild stable elevation of the left hemidiaphragm. Minimal right pleural effusion. No focal consolidation or pneumothorax. Bones: Degenerative changes are identified within the thoracic spine. RAD/Chest PA and Lateral IMPRESSION: CARDIOMEGALY. NO ACUTE FINDINGS. Reading Location: [id number]
--- NOTE | 2025-04-27 12:19 | ED.VIS.DYS ---
HPI History of Present Illness Chief Complaint: Shortness of Breath Informant: patient Onset/Context/Timing Onset: Days Context: gradual Timing: Continuous Quality: Positive for Dyspnea on exertion, Orthopnea and Wheezing Current Severity: Mild Maximum Severity: Mild Worsened by: Exertion, Lying flat and Coughing Relieved by: Nothing Associated Symptoms cough and green sputum Chest Pain: Positive for None Narrative Narrative: 62-year-old female history of endometrial cancer 7 years ago, diabetes, hypertension and chronic bilateral lower extremity lymphedema. States for about a week she has had a cough green, white and barney sputum. Shortness of breath and wheezing. Also states she has had more swelling in her lower extremities. Denies chest pain. Denies fever. Denies mopped assist. No history of DVT or PE. Denies any chest pain. Worse with exertion, coughing or supine. She typically does not lay supine. PE Risk Factors: Negative for Cancer, OCP + Smoking + > 35, Prior DVT or PE, Recent immobilization, Recent surgery or Recent travel Prior similar symptoms: No Recent Illness/Hospitalization: No PFSH PFSH Medical History Abdominal discomfort Colon cancer screening [facility] care chemotherapy resumed x3 cycles, S/P 6 cycles of chemo total pelvis and para-aortic region RT; 5040 cGy in 28 fractions chemotherapy with carboplatin and taxol x3 cycles Essential hypertension Endometrial cancer DM type 2 (diabetes mellitus, type 2) HTN (hypertension) HLD (hyperlipidemia) Lymphedema Syncope and collapse Home Medications ?Medication ?Instructions ?Recorded ?Last Taken ?Type omeprazole 20 mg capsule,delayed 20 mg PO DAILY PRN 09/22/23 Unknown History release metoprolol succinate 200 mg 200 mg PO QHS blood presure #90 09/26/24 Unknown Rx tablet,extended release 24 hr tabs aspirin 81 mg tablet,delayed 81 mg PO QDAY 09/27/24 Unknown History release glimepiride 4 mg tablet 4 mg PO BID 3 months #180 tabs 11/15/24 Unknown Rx sitagliptin phosphate 100 mg 100 mg PO QDAY #90 tabs 01/01/25 Unknown Rx tablet (Januvia) amlodipine 5 mg tablet 5 mg PO QDAY #90 tabs 03/14/25 Unknown Rx hydrochlorothiazide 25 mg tablet 25 mg PO QDAY #90 tabs 03/14/25 Unknown Rx metformin 500 mg tablet,extended 2,000 mg (4 x 500 mg) PO QHS blood 03/14/25 Unknown Rx release 24 hr sugar #360 tabs azithromycin 250 mg tablet 250 mg PO DAILY 4 days #4 tabs 04/27/25 Unknown Rx (Zithromax) prednisone 20 mg tablet 40 mg (2 x 20 mg) PO DAILY 6 days 04/27/25 Unknown Rx #12 tabs Allergy/AdvReac Type Severity Reaction Status Date / Time valsartan (From Egodeusvan) Allergy Severe Angioedema Verified 04/27/25 11:22 codeine Allergy Unknown Verified 04/27/25 11:22 lisinopril Allergy Angioedema Verified 04/27/25 11:22 Family History Mother Breast cancer Hypertension Heart disease Father Diabetes Hypertension Sister Diabetes Heart disease Surgical History peritoneal biopies (~09/2017) debulking of bulky para-aortic nodes (~09/2017) debulking of bulky pelvic nodes w/rt pelvic lymphadenectomy (~09/2017) Infra-colic omentectomy (~09/2017) Bladder peritonectomy (~09/2017) H/O exploratory laparotomy (~09/2017) Hx of laparoscopy (~09/2017) History of total abdominal hysterectomy and bilateral salpingo-oophorectomy (~09/2017) History of tonsillectomy and adenoidectomy History of hip surgery Social History Smoking Status: Heavy Smoker (>10/day) alcohol intake: never substance use type: does not use caffeine: Yes Type: tea what type of physical activity do you participate in: none seatbelt use: always do you feel safe at home: Yes ROS ROS ED ROS Narrative Shortness of breath. Productive cough of green sputum. Wheezing. Increased bilateral lower extremity swelling. Constitutional Constitutional ED: Denies chills or fever(s) Eyes Eyes: Denies blurry vision ENT ENT ED: Denies ear pain Cardiovascular Cardiovascular: Denies chest pain Respiratory/Chest Respiratory/Chest: Reports cough, dyspnea, dyspnea on exertion and sputum Gastrointestinal Gastrointestinal: Denies abdominal pain, diarrhea, nausea or vomiting Genitourinary Genitourinary ED: Denies dysuria or hematuria Musculoskeletal Musculoskeletal: Denies arthralgias or back pain Integumentary Denies abscess Neurologic Neurologic: Denies headache(s) Psychiatric Psychiatric: Denies anxiety or depression Endocrine Endocrinology: Denies cold intolerance or heat intolerance Hematologic/Lymphatic Hematologic/Lymphatic: Denies easy bleeding, easy bruising or lymphadenopathy Allergic/Immunologic Allergic/Immunologic ED: Denies mouth swelling, tongue swelling or urticaria EXAM Physical Exam Narrative Exam Narrative: 64-year-old female sitting upright in bed. Vital signs are stable afebrile. She is in no distress. Her pulse ox is 96% on room air no hypoxia. H EENT exam pupils round react to light. Moist mucous membranes. Neck nontender no JVD. No lymphadenopathy. Lungs bilateral diffuse expiratory wheezing. No rales or rhonchi. Equal symmetrical. Heart regular rhythm rate about 80 no murmur. Chest wall ribs nontender. Abdomen soft nontender. Moving all 4 extremities. She has 2+ pitting edema both lower extremities which is chronic. She has chronic lymphedema. Dorsi plantarflexion intact. Normal bottle cleaner strength. Neurologically she is awake alert. Answer questions following commands. Const Vital Signs: 04/27/25 11:21 04/27/25 11:44 04/27/25 12:23 Temperature 98.0 F Temperature Source Oral Pulse Rate 81 76 Respiratory Rate 18 18 Respiratory Effort Short of Breath Blood Pressure 153/62 H 169/80 H Blood Pressure Mean 92 109 Pulse Ox 96 97 Oxygen Delivery Method Room Air Room Air Room Air 04/27/25 12:24 04/27/25 12:31 04/27/25 13:00 Temperature Temperature Source Pulse Rate 79 70 Respiratory Rate 16 16 Respiratory Effort Blood Pressure 169/80 H Blood Pressure Mean 109 Pulse Ox 95 93 Oxygen Delivery Method Room Air 04/27/25 14:00 Temperature Temperature Source Pulse Rate 71 Respiratory Rate 26 H Respiratory Effort Blood Pressure 158/61 H Blood Pressure Mean 93 Pulse Ox 94 Oxygen Delivery Method Room Air Positive well nourished and well developed; Negative for cachectic, contractures or unkempt General Appearance ED: well developed and NAD; Negative for unkempt, cachectic, contractures or pallor Nutritional Appearance: Negative for cachectic HEENT Reports moist mucous membranes atraumatic Eyes PERRL and EOMs intact bilaterally Neck no lymphadenopathy, supple, no meningeal signs and no JVD Resp normal respiratory effort and No clear to auscultation bilaterally Auscultation: wheezes Cardio regular rate, regular rhythm, S1 normal heart sound, S2 normal heart sound and no murmurs GI non-tender, non-distended and no masses Palpation: soft; Negative for tender, guarding or rebound tenderness present Back/Spine no CVA tenderness and normal to inspection Extremity Negative for normal to inspection Extremity Narrative: Bilateral 2+ pitting edema. History of chronic lymphedema General Extremety ED: Yes edema; Negative for tenderness General Extremity: edema Neuro oriented x3 and CN's II-XII intact bilaterally Sensorium / Orientation: alert, oriented to person, oriented to place and oriented to time; Negative for orientation impaired Motor Exam: strength 5/5 throughout Psych mental status grossly normal Appearance: Negative for unkempt Attitude: No agitated Mood & Affect: Negative for depressed, anxious or tearful Thought Process: normal thought process Skin no wounds and skin turgor normal General Skin Exam: Negative for jaundice or pallor Lesions: no lesions Rashes: no rashes MDM MDM MDM Narrative Medical decision making narrative: 64-year-old female URI symptoms possible pneumonia versus viral syndrome and/or bronchospasm. Screening labs and x-ray will be obtained. This could also be secondary to congestive heart failure due to the increased swelling in her lower extremities versus pleural effusion versus other. Should get both a cardiac and respiratory workup. She will be treated with DuoNeb aerosol for wheezing and IV Solu-Medrol. Repeat exam at 2:27 PM patient doing much better. Her breathing is much easier. Her wheezing is resolved at the aerosol treatment and IV Solu-Medrol. We went over her test results. She is comfortable being discharged home as his family. She will be started on Zithromax Z-MOISÉS given she has had a week of symptoms and she has colored sputum. Clinically I do not think she has pneumonia however. She will also be on prednisone for 6 more days to help with the wheezing and the bronchospasm. She will follow-up with her primary care physician for further evaluation and possibly outpatient therapy for her lymphedema. History & Record Review Discussion w/independent historian: Patient Additional record(s) reviewed:: Prior inpatient record, Prior outpatient record, Prior ED visit and Prior labs Lab Data Attestation: I reviewed the patient's lab results. Lab results narrative: CBC shows a white count of 10. H&H 11.3 and 37. Platelets 267. Electrolytes show sodium 138. Gap 13. Normal BUN and creatinine of 15 and 0.75 Troponin is normal at 13. BNP is 315. Chest x-ray chronic changes. Labs: Laboratory Results - last 24 hr 04/27/25 12:40 WBC 10.0 RBC 4.42 Hgb 11.3 L Hct 37.1 MCV 83.9 MCH 25.6 L MCHC 30.5 L RDW Std Deviation 46.2 H RDW Coeff of [place] 15.2 H Plt Count 267 MPV 9.6 Immature Gran % (Auto) 0.600 Neut % (Auto) 80.6 H Lymph % (Auto) 8.1 L [place] % (Auto) 8.4 Eos % (Auto) 1.9 Baso % (Auto) 0.4 Absolute Neuts (auto) 8.0 H Absolute Lymphs (auto) 0.81 L Nucleated RBC % 0 Sodium 138 Potassium 3.5 Chloride 97 L Carbon Dioxide 28.5 Anion Gap 13 BUN 15 Creatinine 0.75 Estim Creat Clear Calc 92.58 Est GFR (MDRD) Non-Af 90 BUN/Creatinine Ratio 20.2 H Glucose 204 H Calcium 9.4 Troponin T High Sens 13 NT pro BNP II 315 Radiography Chest X-Ray - ED: 2 View, Read by ED Physician, Read by Radiologist, Lungs, Mediastinum, Bony Structures, No Acute Disease, Chronic Changes and Cardiomegaly Diagnostic Testing: Clinical Impression(s) from Imaging Studies Chest X-Ray 04/27/25 12:18 IMPRESSION: CARDIOMEGALY. NO ACUTE FINDINGS. Reading Location: [facility] Chest x-ray, 2 views, interpreted by myself and the radiologist shows cardiomegaly. No obvious pneumonia or effusion no pulmonary edema. Chronic changes. Rhythm Strip Rhythm Strip: Sinus Rhythm Rate: 77 Ectopy: None EKG Initial EKG: Attestation: I personally reviewed and interpreted this EKG as follows: Interpretation: Sinus Rhythm and No Acute Injury Pattern Comments: Normal sinus rhythm rate of 77 no acute signs of VA or ischemia. Discharge Plan Triage Chief Complaint: Shortness of Breath ED Provider: Shankar Mckeon Dx/Rx/DC Orders Clinical Impression: Bronchitis, Bilateral wheezing, Shortness of breath, Lymphedema of both lower extremities, History of diabetes mellitus Instructions: ED Bronchitis with Wheezing (Adult), ED Lymphedema Prescriptions: New azithromycin [Zithromax] 250 mg tablet 250 mg PO DAILY 4 Days Qty: 4 0RF Rx Instructions: start on day 2 of therapy prednisone 20 mg tablet 40 mg PO DAILY 6 Days Qty: 12 0RF No Action omeprazole 20 mg capsule,delayed release(DR/EC) 20 mg PO DAILY PRN aspirin 81 mg tablet,delayed release (DR/EC) 81 mg PO QDAY glimepiride 4 mg tablet 4 mg PO BID 90 Days Qty: 180 3RF metoprolol succinate 200 mg tablet extended release 24 hr 200 mg PO QHS Qty: 90 1RF Januvia 100 mg tablet 100 mg PO QDAY Qty: 90 1RF hydrochlorothiazide 25 mg tablet 25 mg PO QDAY Qty: 90 1RF metformin 500 mg tablet extended release 24 hr 2,000 mg PO QHS Qty: 360 1RF amlodipine 5 mg tablet 5 mg PO QDAY Qty: 90 1RF Primary Care Provider: Alexa Luna Referrals: Alexa Luna MD [Primary Care Provider] - 3-5 Days Activity Restrictions/Additional Instructions: Prednisone 40 mg a day for the next 6 days starting tomorrow. First dose was given here through the IV. The antibiotic Zithromax 1 pill a day starting tomorrow take it after lunch for 4 more days. Follow-up with your doctor if not improving. Return if worse. When you follow-up with your doctor talk to Dr. Luna about outpatient therapy through the hospital for your lymphedema. Print Language: Palauan Disposition Disposition: Home, Self Care
--- NOTE | 2025-04-27 12:31 | EKG12_ITS ---
Test Reason : SOB Blood Pressure : */* mmHG Vent. Rate : 77 BPM Atrial Rate : 77 BPM P-R Int : 202 ms QRS Dur : 88 ms QT Int : 398 ms P-R-T Axes : 31 1 7 degrees QTcB Int : 450 ms Normal sinus rhythm normal Confirmed by Carlos Eli ([id number]), slot editor SELENA CAMERON ([id number]) on 04/29/2025 1:08:43 PM Referred By: Shankar Mckeon Confirmed By: Carlos Eli
[2025-04-27 12:48] LABS: Hematocrit 37.1 % (37-47); Hemoglobin 11.3 g/dL (12.0-15.0); Immature Granulocytes Count 0.060 X10^3/uL (0.0-0.0); Mean Corp Hgb Conc 30.5 g/dL (32-36); Mean Corpuscular Volume 83.9 fL (81-99); Mean Platelet Vol. 9.6 fl (6.2-12.0); NRBC Flagged by Analyzer 0 % (0-5); Platelet Count 267 K/mm3 (150-450); RBC Distribution Width CV 15.2 % (11.6-14.6); RBC Distribution Width SD 46.2 fl (35.1-43.9); Red Blood Count 4.42 M/mm3 (4.2-5.4); White Blood Count 10.0 K/mm3 (4.4-11.0)
[2025-04-27 13:05] LABS: Anion Gap 13 (5-15); BUN 15 mg/dL (4-19); BUN/Creat Ratio 20.2 RATIO (10-20); Calcium,Total 9.4 mg/dL (7.6-11.0); Carbon Dioxide 28.5 mmol/L (21.0-32.0); Chloride 97 mmol/L (98-108); Estimated Creatinine Clearance 92.58 ml/min (50-250); Glucose 204 mg/dL (70-99); Potassium 3.5 mmol/L (3.3-5.1); Pro- Brain NATRIURETIC PEPTIDE 315 pg/mL (<=900); Troponin T High Sensitivity 13 ng/L (<=14)
--- OUTSIDE RECORDS SUMMARY | 2025-04-27 13:23 | XMS RPT_ITS | CCD ---
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 shortness of breath. Other chronic medical conditions are stable. ROS Const Constitutional: No body ache, excessive sweating, fatigue, fever(s), frequent falls, headache(s), snoring, weakness, weight change, sleep problems or change in appetite Eyes Eyes: No blurry vision, change in vision, dry eyes, floaters, eye pain or Light sensitivity ENT ENT: No abnormal hearing, ear or mastoid pain, tinnitus, nosebleed/epistaxis, nasal congestion, sinus pressure, sinus pain, headache(s), neck pain or sore throat Resp Respiratory: No cough, excessive phlegm production, pain on inspiration, shortness of breath, snoring or wheezing Cardio Cardiology: No chest pain at rest, chest pain with exertion, excessive sweating, shortness of breath, dyspnea on exertion, lighthea (more content not included)... Normal [facility] Oncology Visit Reporton 02-06 Oncology Visit Report [facility] [address] [place], [place] [address] [address] OFFICE VISIT Date of Service: 02/17/25 1529 MR#: [id number] Acct: [id number] Name: ROGERIO STEPHENS Rep #: [id number] : 1960 From: Tang Butler MD Age/Sex: 64/F Location: [facility] [place] Status: Signed HPI Subjective Date of Service 02/17/25 Chief Complaint F/u for endometrial cancer. History of Present Illness 64-year-old woman with a history of endometrial cancer is referred for evaluation of abnormal CT. She was diagnosed on 07/11/2017 with endometrial cancer. She underwent diagnostic laparoscopy, exploratory laparotomy, total abdominal hysterectomy BSO omentectomy, pelvic lymphadenectomy and peritoneal biopsies on 09/15/2017 at [facility] by Dr. Jah Madison. 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 She received adjuvant chemotherapy with Carboplatin and Taxol x3 cycles from 10/27/2017 to 12/08/2017 followed by pelvic/para-aortic region RT from 01/01/2018 to 03/01/2018. She then received another 3 cycles of carboplatin and Taxol from 04/06/2018 to 05/25/2018. Ca125 on 06/15/2018 was 19. She had an accident in 2018, and she had abdominal hernia hernia surgery, needed a left chest tube. She was referred by Dr. Radha Valera for further evaluation. She is on observation, comes for follow up. Fees well, using a walker. [facility] Medical History Abdominal discomfort Colon cancer screening Preventative health care chemotherapy resumed x3 cycles, S/P 6 cycles of chemo total pelvis and para-aortic region RT; 5040 cGy in 28 fractions chemotherapy with carboplatin and taxol x3 cycles Essential hypertension Endometrial cancer DM type 2 (diabetes mellitus, type 2) HTN (hypertension) HLD (hyperlipidemia) Lymphedema Syncope and collapse Surgical History peritoneal biopies ( 09/2017) debulking of bulky para-aortic nodes ( 09/2017) debulking of bulky pelvic nodes w/rt pelvic lymphadenectomy ( 09/2017) Infra-colic omentectomy ( 09/2017) Bladder peritonectomy ( 09/2017) H/O exploratory laparotomy ( 09/2017) Hx of laparoscopy ( 09/2017) History of total abdominal hysterectomy and bilateral salpingo-oophorectomy ( 09/2017) History of tonsillectomy and adenoidectomy History of hip surgery Family History Mother Breast cancer Hypertension Heart disease Father Diabetes Hypertension Sister Diabetes Heart disease Social History Smoking Status: Former smoker alcohol intake: never substance use type: does not use caffeine: Yes Type: tea what type of physical activity do you participate in: none seatbelt use: always do you feel safe at home: Yes Intake Vital Signs 11/15/24 15:09 02/17/25 15:30 02/17/25 15:32 Height 5 ft 2 in 5 ft 2 in 5 ft 2 in Weight: 114.305 kg 110.79 kg BMI 46.0 44.6 BP 152/88 H 127/68 H Blood Pressure Location Lt brachial Lt brachial Position Sitting Sitting Respiration 18 18 Pulse 79 80 Pulse Source Monitor Monitor Temp 98.0 F 98.1 F Temperature Source Temporal Artery Pulse Oximetry (%) 97 94 Oxygen Delivery Method room air room air Intake Is patient in pain?: No Allergies valsartan (From [employer]) Allergy (Severe, Verified 02/17/25 15:29) Angioedema codeine Allergy (Verified 02/17/25 15:29) Unknown lisinopril Allergy (Verified 02/17/25 15:29) Angioedema Medications ???Medication ???Instructions ???Recorded ???Confirmed ???Type omeprazole 20 mg capsule,delayed 20 mg PO DAILY PRN 09/22/23 History release amlodipine 5 mg tablet 5 mg PO QDAY #90 tabs 09/26/2410/02 Rx hydrochlorothiazide 25 mg tablet 25 mg PO QDAY #90 tabs 09/26/24 Rx metformin 500 mg tablet,extended 2,000 mg (4 x 500 mg) PO QHS blood 09/26/24 02/17/25 Rx release 24 hr sugar #360 tabs metoprolol succinate 200 mg 200 mg PO QHS blood presure #90 02/17/25 Rx tablet,extended release 24 hr tabs aspirin 81 mg tablet,delayed 81 mg PO QDAY 09/27/24 02/17/25 Hi story release glimepiride 4 mg tablet 4 mg PO BID 3 months #180 tabs 05/0202/17/25 Rx sitagliptin phosphate 100 mg 100 mg PO QDAY #90 tabs 01/01/25 0 02/17/25 Rx tablet (Januvia) Central Venous Access Central Venous Access: No Laboratory Tests 08/18/20 08/18/20 02/12/21 11:37 14:12 15:07 WBC 5.0 Hgb 13.5 Hct 43.3 Plt Count 211 Sodium Potassium Chloride Carbon Dioxide BUN Creatinine Glucose Calcium Total Bilirubin AST ALT Alkaline Phosphatase Lactate Dehydrogenase Total Protein Albumin Globulin CA 125 An (more content not included)... Normal [facility] Cancer Antigen 125on 025 CA 125 21.8 U/mL Normal 0.0-38.1 [facility] Comment on above: Result Comment: [employer] Electrochemiluminescence Immunoassay (ECLIA) Values obtained with different assay methods or kits cannot be used interchangeably. Results cannot be interpreted as absolute evidence of the presence or absence of malignant disease. Performed at: [address] [id number] Park Superintendent: Nba Chew PhD, Phone: [phone] Performed By: #### L 504.2610, L100.0100, L3100.5000, L500.4050 ####[facility] [address] [place], [address] Absolute lymphocyte countOrd ered By: Tang Butler on 02-10-2025 Lymphocytes Auto (Unsp spec) [#/Vol] 1.23 10*3/uL 0.83-4.51 [facility] Absolute neutrophil countOrd ered By: Tang Butler on 02-10-2025 Neutrophils (Bld) [#/Vol] 5.9 10*3/uL 2.0-7.7 [facility] Anion gap in Serum or Plasma Ordered By: Tang Butler on 02-10-2025 Anion gap [Moles/Vol] 15 mmol/L 5-15 [facility] Automated lymphocyte count a s percentage of total leukocytesOrdered By: Tang Butler on 02-10-2025 Lymphocytes/100 WBC Auto (Unsp spec) 14.7 % Low 19-41 [facility] BUN/creatinine ratioOrdered By: Tang Butler on 02-10-2025 Urea nitrogen/Creatinine [Mass ratio] 24.9 mg/mg High 10-20 [facility] Basophil percentageOrdered B y: Tang Butler on 02-10-2025 Basophils/100 WBC (Bld) 0.5 % 0-1 [facility] Bilirubin, totalOrdered By: Tang Butler on 02-10-2025 Bilirubin [Mass/Vol] 0.26 mg/dL 0.00-1.30 [facility] CBC W/Diff, Automatedon 05-0 Absolute Lymph 1.23 X10 3/uL Normal 0.83-4.51 [facility] Comment on above: Performed By: #### L 504.2610, L100.0100, L3100.5000, L500.4050 #### [facility] [address] [place], [address] Absolute Neut 5.9 X10 3/uL Normal 2.0-7.7 [facility] Comment on above: Performed By: #### L 504.2610, L100.0100, L3100.5000, L500.4050 #### [facility] [address] [place], [address] Basophils/100 WBC (Bld) 0.5 % Normal 0-1 [facility] Comment on above: Performed By: #### L 504.2610, L100.0100, L3100.5000, L500.4050 #### [facility] [address] [place], [address] Eosinophils/100 WBC (Bld) 3.5 % Normal 0-5 [facility] Comment on above: Performed By: #### L 504.2610, L100.0100, L3100.5000, L500.4050 #### [facility] [address] [place], [address] Erythrocyte distribution width (RBC) [Ratio] 14.4 % Normal 11.6-14.6 [facility] Comment on above: Performed By: #### L 504.2610, L100.0100, L3100.5000, L500.4050 #### [facility] [address] [place], [address] Hematocrit (Bld) [Volume fraction] 38.1 % Normal 37-47 [facility] Comment on above: Performed By: #### L 504.2610, L100.0100, L3100.5000, L500.4050 #### [facility] [address] [place], [address] Hemoglobin (Bld) [Mass/Vol] 12.0 g/dL Normal 12.0-15.0 [facility] Comment on above: Performed By: #### L 504.2610, L100.0100, L3100.5000, L500.4050 #### [facility] [address] [place], [address] IG% 0.700 Normal 0.0-0.9 [facility] Comment on above: Result Comment: IG% - Immature Granulocytes (promyelocytes, myelocytes and metamyelocytes) > 1% indicates that a LEFT SHIFT is Present. Performed By: #### L 504.2610, L100.0100, L3100.5000, L500.4050 #### [facility] [address] [place] [place], [address] Lymphocytes/100 WBC (Bld) 14.7 % Low 19-41 [facility] Comment on above: Performed By: #### L 504.2610, L100.0100, L3100.5000, L500.4050 #### [facility] [address] [place], [address] MCH (RBC) [Entitic mass] 28.3 pg Normal 27.0-32.0 [facility] Comment on above: Performed By: #### L 504.2610, L100.0100, L3100.5000, L500.4050 #### [facility] [address] [place], [address] MCHC (RBC) [Mass/Vol] 31.5 g/dL Low 32-36 [facility] Comment on above: Performed By: #### L 504.2610, L100.0100, L3100.5000, L500.4050 #### [facility] [address] [place], [address] MCV (RBC) [Entitic vol] 89.9 fL Normal 81-99 [facility] Comment on above: Performed By: #### L 504.2610, L100.0100, L3100.5000, L500.4050 #### [facility] [address] [place], [address] Monocytes/100 WBC (Bld) 9.9 % Normal 0-10 [facility] Comment on above: Performed By: #### L 504.2610, L100.0100, L3100.5000, L500.4050 #### [facility] [address] [place], [address] Neutrophils/100 WBC (Bld) 70.7 % High 47-70 [facility] Comment on above: Performed By: #### L 504.2610, L100.0100, L3100.5000, L500.4050 #### [facility] [address] [place], [address] Nucleated RBC (Bld) [#/Vol] 0 10*3/uL Normal 0-5 [facility] Comment on above: Performed By: #### L 504.2610, L100.0100, L3100.5000, L500.4050 #### [facility] [address] [place], [address] Platelet mean volume (Bld) [Entitic vol] 9.9 fL Normal 6.2-12.0 [facility] Comment on above: Performed By: #### L 504.2610, L100.0100, L3100.5000, L500.4050 #### [facility] [address] [place], [address] Platelets (Bld) [#/Vol] 277 10*3/uL Normal 150-450 [facility] Comment on above: Performed By: #### L 504.2610, L100.0100, L3100.5000, L500.4050 #### [facility] [address] [place], [address] RBC (Bld) [#/Vol] 4.24 10*6/uL Normal 4.2-5.4 [facility] Comment on above: Performed By: #### L 504.2610, L100.0100, L3100.5000, L500.4050 #### [facility] [address] [place], [address] RDW SD 46.7 fl High 35.1-43.9 [facility] Comment on above: Performed By: #### L 504.2610, L100.0100, L3100.5000, L500.4050 #### [facility] [address] [place], [address] WBC (Bld) [#/Vol] 8.4 10*3/uL Normal 4.4-11.0 [facility] Comment on above: Performed By: #### L 504.2610, L100.0100, L3100.5000, L500.4050 #### [facility] [address] [place], [address] Cancer antigen 125 (CA-125) measurementOrdered By: Tang Butler on 02-10-2025 Cancer antigen 125 (CA-125) measurement 21.8 U/mL 0.0-38.1 [facility] Comment on above: [employer] El ectrochemiluminescence Immunoassay(ECLIA)Values obtained with different assay methods or kits cannotbe used interchangeably. Results cannot be interpreted asabsolute evidence of the presence or absence of malignantdisease.Performed at: [facility] [id number] Director: Nba Chew PhD, Phone: [phone] Carbon dioxide, total [Moles /volume] in Central venous bloodOrdered By: Tang Butler on 02-10-2025 CO2 [Moles/Vol] 21.7 mmol/L 21.0-32.0 [facility] Chloride assayOrdered By: Yvette Butler on 02-10-2025 Chloride [Moles/Vol] 100 mmol/L 98-108 [facility] Comprehensive Metabolic Prof ilon 02-10-2025 Albumin [Mass/Vol] 3.6 g/dL Normal 3.4-4.8 [facility] Comment on above: Performed By: #### L 504.2610, L100.0100, L3100.5000, L500.4050 ####[facility] [address] [place], [address] Albumin/Globulin [Mass ratio] 1.0 {ratio} Normal 0.9-2.4 [facility] Comment on above: Performed By: #### L 504.2610, L100.0100, L3100.5000, L500.4050 ####[facility] [address] [place], [address] ALK PHOS 79 U/L Normal 35-104 [facility] Comment on above: Performed By: #### L 504.2610, L100.0100, L3100.5000, L500.4050 ####[facility] [address] [place], [address] ALT [Catalytic activity/Vol] 13 U/L Normal <=34 [facility] Comment on above: Performed By: #### L 504.2610, L100.0100, L3100.5000, L500.4050 ####[facility] [address] [place], [address] AST [Catalytic activity/Vol] 23 U/L Normal <=31 [facility] Comment on above: Performed By: #### L 504.2610, L100.0100, L3100.5000, L500.4050 ####[facility] [address] [place], [address] Bilirubin [Mass/Vol] 0.26 mg/dL Normal 0.00-1.30 [facility] Comment on above: Performed By: #### L 504.2610, L100.0100, L3100.5000, L500.4050 ####[facility] [address] [place], [address] BUN/CRE 24.9 RATIO High 10-20 [facility] Comment on above: Performed By: #### L 504.2610, L100.0100, L3100.5000, L500.4050 ####[facility] [address] [place], [address] Calcium [Mass/Vol] 9.4 mg/dL Normal 7.6-11.0 [facility] Comment on above: Performed By: #### L 504.2610, L100.0100, L3100.5000, L500.4050 ####[facility] [address] [place], [address] Chloride [Moles/Vol] 100 mmol/L Normal 98-108 [facility] Comment on above: Performed By: #### L 504.2610, L100.0100, L3100.5000, L500.4050 ####[facility] [address] [place], [address] CO2 [Moles/Vol] 21.7 mmol/L Normal 21.0-32.0 [facility] Comment on above: Performed By: #### L 504.2610, L100.0100, L3100.5000, L500.4050 ####[facility] [address] [place], [address] Creatinine [Mass/Vol] 0.74 mg/dL Normal 0.70-1.20 [facility] Comment on above: Performed By: #### L 504.2610, L100.0100, L3100.5000, L500.4050 ####[facility] [address] [place], [address] ECRCL 92.79 ml/min Normal 50-250 [facility] Comment on above: Performed By: #### L 504.2610, L100.0100, L3100.5000, L500.4050 ####[facility] [address] [place], [address] GAP 15 Normal 5-15 [facility] Comment on above: Performed By: #### L 504.2610, L100.0100, L3100.5000, L500.4050 ####[facility] [address] [place], [address] GFR/1.73 sq M.predicted among non-blacks MDRD (S/P/Bld) [Vol rate/Area] 91 mL/min/{1.73_m2} Normal >60 [facility] Comment on above: Result Comment: mL/m in/1.73m2 CKD-EPI Creatinine Equation (2020) Performed By: #### L 504.2610, L100.0100, L3100.5000, L500.4050 ####[facility] [address] [place], [address] Globulin (S) [Mass/Vol] 3.6 g/dL Normal 2.2-4.2 [facility] Comment on above: Performed By: #### L 504.2610, L100.0100, L3100.5000, L500.4050 ####[facility] [address] [place], [address] Glucose [Mass/Vol] 168 mg/dL High 70-99 [facility] Comment on above: Performed By: #### L 504.2610, L100.0100, L3100.5000, L500.4050 ####[facility] [address] [place], [address] Potassium [Moles/Vol] 4.1 mmol/L Normal 3.3-5.1 [facility] Comment on above: Performed By: #### L 504.2610, L100.0100, L3100.5000, L500.4050 ####[facility] [address] [place], [address] Sodium [Moles/Vol] 137 mmol/L Normal 133-145 [facility] Comment on above: Performed By: #### L 504.2610, L100.0100, L3100.5000, L500.4050 ####[facility] [address] [place], [address] T PROT 7.2 g/dL Normal 5.9-8.4 [facility] Comment on above: Performed By: #### L 504.2610, L100.0100, L3100.5000, L500.4050 ####[facility] [address] [place], [address] Urea nitrogen [Mass/Vol] 18 mg/dL Normal 4-19 [facility] Comment on above: Performed By: #### L 504.2610, L100.0100, L3100.5000, L500.4050 ####[facility] [address] [place], [address] Eosinophil percentageOrdered By: Tang Butler on 02-10-2025 Eosinophils/100 WBC (Bld) 3.5 % 0-5 [facility] Erythrocyte distribution wid th ratioOrdered By: Tang Butler on 02-10-2025 Erythrocyte distribution width (RBC) [Ratio] 14.4 % 11.6-14.6 [facility] Erythrocyte distribution wid th standard deviationOrdered By: Tang Butler on 02-10-2025 Erythrocyte distribution width (RBC) [Ratio] 46.7 fl High 35.1-43.9 [facility] Glomerular filtration rate ( GFR) estimation/1.73 sq m using serum, plasma, or whole bOrdered By: Tang Butler on 02-10-2025 GFR/1.73 sq M.predicted among non-blacks MDRD (S/P/Bld) [Vol rate/Area] 91 mL/min/{1.73_m2} >60 [facility] Comment on above: mL/min/1.73m2 CKD-EP I Creatinine Equation (2020) Hematocrit Auto (Bld) [Volum e fraction]Ordered By: Tang Butler on 02-10-2025 Hematocrit (Bld) [Volume fraction] 38.1 % 37-47 [facility] Hemoglobin measurementOrdere d By: Tang Butler on 02-10-2025 Hemoglobin (Bld) [Mass/Vol] 12.0 g/dL 12.0-15.0 [facility] Immature granulocytes/100 WB C Auto (Bld)Ordered By: Tang Butler on 02-10-2025 Immature granulocytes/100 WBC (Bld) 0.700 % 0.0-0.9 [facility] Comment on above: IG% - Immature Granu locytes (promyelocytes, myelocytes and metamyelocytes) > 1% indicates that a LEFT SHIFT is Present. LDHon 02-10-2025 LDH 175 U/L Normal 84-246 [facility] Comment on above: Order Comment: 1 Performed By: #### L 504.2610, L100.0100, L3100.5000, L500.4050 ####[facility] [address] [place], [address] Laboratory - Chemistry and C hemistry - challengeOrdered By: Tang Butler on 02-10-2025 AST [Catalytic activity/Vol] 23 U/L <32 [facility] Lactate dehydrogenase (LDH) measurementOrdered By: Tang Butler on 02-10-2025 LDH [Catalytic activity/Vol] 175 U/L 84-246 [facility] MCV (mean corpuscular volume ) determinationOrdered By: Tang Butler on 02-10-2025 MCV (RBC) [Entitic vol] 89.9 fL 81-99 [facility] Mean corpuscular hemoglobin (MCH) determinationOrdered By: Tang Butler on 02-10-2025 MCH (RBC) [Entitic mass] 28.3 pg 27.0-32.0 [facility] Mean corpuscular hemoglobin concentration (MCHC) determinationOrdered By: Tang Butler on 02-10-2025 MCHC (RBC) [Mass/Vol] 31.5 g/dL Low 32-36 [facility] Mean platelet volume determi nationOrdered By: Tang Butler on 02-10-2025 Platelet mean volume (Bld) [Entitic vol] 9.9 fL 6.2-12.0 [facility] Monocyte percentageOrdered B y: Tang Butler on 02-10-2025 Monocytes/100 WBC (Bld) 9.9 % 0-10 [facility] Neutrophil percentageOrdered By: Tang Butler on 02-10-2025 Neutrophils/100 WBC (Bld) 70.7 % High 47-70 [facility] Nucleated red blood cell per centageOrdered By: Tang Butler on 02-10-2025 Nucleated RBC/100 WBC (Bld) [Ratio] 0 % 0-5 [facility] Platelet countOrdered By: Yvette Butler on 02-10-2025 Platelets (Bld) [#/Vol] 277 10*3/uL 150-450 [facility] Potassium measurement (mass/ volume)Ordered By: Tang Butler on 02-10-2025 Potassium (Unsp spec) [Mass/Vol] 4.1 mmol/L 3.3-5.1 [facility] RBC Auto (Bld) [#/Vol]Ordere d By: Tang Butler on 02-10-2025 RBC (Bld) [#/Vol] 4.24 10*6/uL 4.2-5.4 [facility] Serum creatinine measurement (mass/volume)Ordered By: Tang Butler on 02-10-2025 Creatinine [Mass/Vol] 0.74 mg/dL 0.70-1.20 [facility] Serum globulin measurementOr dered By: Tang Butler on 02-10-2025 Globulin (S) [Mass/Vol] 3.6 g/dL 2.2-4.2 [facility] Serum glucose measurement (m ass/volume)Ordered By: Tang Butler on 02-10-2025 Glucose [Mass/Vol] 168 mg/dL High 70-99 [facility] Serum or plasma alanine parish otransferase (ALT) measurementOrdered By: Tang Butler 02-10-2025 ALT [Catalytic activity/Vol] 13 U/L <35 [facility] Serum or plasma albumin rocco urement (mass/volume)Ordered By: Tang Butler on 02-10-2025 Albumin [Mass/Vol] 3.6 g/dL 3.4-4.8 [facility] Serum or plasma albumin/glob ulin mass ratioOrdered By: Tang Butler on 02-10-2025 Albumin/Globulin [Mass ratio] 1.0 {ratio} 0.9-2.4 [facility] Serum or plasma alkaline zully sphatase measurementOrdered By: Tang Butler on 02-10-2025 ALP [Catalytic activity/Vol] 79 U/L 35-104 [facility] Serum or plasma calcium rocco urement (mass/volume)Ordered By: Tang Butler on 02-10-2025 Calcium [Mass/Vol] 9.4 mg/dL 7.6-11.0 [facility] Serum or plasma urea nitroge n measurement (mass/volume)Ordered By: Tang Butler on 02-10-2025 Urea nitrogen [Mass/Vol] 18 mg/dL 4-19 [facility] Sodium levelOrdered By: Nathanael Butler on 02-10-2025 Sodium [Moles/Vol] 137 mmol/L 133-145 [facility] Total proteinOrdered By: Dain Butler on 02-10-2025 Protein [Mass/Vol] 7.2 g/dL 5.9-8.4 [facility] White blood cell (WBC) count Ordered By: Tang Butler on 02-10-2025 WBC (Bld) [#/Vol] 8.4 10*3/uL 4.4-11.0 [facility] Breast imaging reportOrdered By: Sally Nelsno on 12-13-2024 Study report [facility] Imaging Services [address] [place] [address] SCRN MAMM (CAD)W/DANII BILAT MR#: [id number] Acct: [id number] Name: ROGERIO STEPHENS Rep #: [id number] : 1960 F 64 From: Nia Nelson MD PCP: Dr. Ahsan Luna MD Status: R EG CLI Study:SCRN MAMM (CAD)W/DANII BILAT Date of Exa m: 12/13/24 Exam# [id number] Ordering Dr: Anca Ravi MD PROCEDURE: SCRN MAMM (CAD)W/DANII BILAT REASON FOR EXAM: F, Age 64 y/o , presents for annual screening mammogram. Family history of breast cancer in her mother at 60. TECHNIQUE: Bilateral screening digital breast tomosynthesis with 2D and 3D images. Computeraided detection. COMPARISON: 12/08/2023, 12/02/2022 FINDINGS: There are scattered areas of fibroglandular density. No suspicious masses, areas of developing architectural distortion, or suspicious calcifications. BI/SCRN MAMM (CAD)W/DANII BILAT IMPRESSION: There is no mammographic evidence of malignancy. BI-RADS 1: NEGATIVE. RECOMMEND ANNUAL MAMMOGRAPHIC SCREENING. Follow-up code: Routine Follow-up The patient will be notified of the results by letter. Reading Location: [facility] CC: Dr. Ahsan Luna MD; Dr. Anca Valera MD ~ [employer]: Signed [facility] SCRN MAMM (CAD)W/DANII BILATo n 12-13-2024 SCRN MAMM (CAD)W/DANII BILAT [facility] Imaging Services [address] [place] [id number] SCRN MAMM (CAD)W/DANII BILAT MR#: [id number] Acct: [id number] Name: ROGERIO SETPHENS Rep #: [id number] : 1960 F 64 From: Sally Nelson MD PCP: Dr. Ahsan Luna MD Status: REG CLI Study: SCRN MAMM (CAD)W/DANII BILAT Date of Exam: 05/02 Exam# [id number] Ordering Dr: Anca Valera PROCEDURE: SCRN MAMM (CAD)W/DANII BILAT REASON FOR EXAM: F, Age 64 y/o , presents for annual screening mammogram. Family history of breast cancer in her mother at 60. TECHNIQUE: Bilateral screening digital breast tomosynthesis with 2D and 3D images. Computer aided detection. COMPARISON: 12/08/2023, 12/02/2022 FINDINGS: There are scattered areas of fibroglandular density. No suspicious masses, areas of developing architectural distortion, or suspicious calcifications. BI/SCRN MAMM (CAD)W/DANII BILAT IMPRESSION: There is no mammographic evidence of malignancy. BI-RADS 1: NEGATIVE. RECOMMEND ANNUAL MAMMOGRAPHIC SCREENING. Follow-up code: Routine Follow-up The patient will be notified of the results by letter. Reading [facility] [facility] CC: Dr. Ahsan Luna MD; Dr. Anca Valera MD [employer]: Signed Normal [facility] Internal Medicine Office Vis iton 11-15-2024 Internal Medicine Office Visit [facility] [address] [place], [place] [address] OFFICE VISIT Date of Service: 11/15/24 MR#: [id number] Acct: [id number] Name: ROGERIO STEPHENS Rep #: [id number] : 1960 Provider: Dr. Ahsan urbina MD Age/Sex: 64/F Location[place] [facility] [place] Status: Signed Intake Vital Signs 08/23/24 12:57 09/27/24 14:57 11/15/24 15:09 Height 5 ft 2 in 5 ft 2 in 5 ft 2 in Weight: 252 lb BMI 46.0 BP 152/88 H Blood Pressure Location Lt brachial Position Sitting Respiration 18 Pulse 79 Pulse Source Monitor Temp 98.0 F Temp Source Temporal Pulse Oximetry (%) 97 Oxygen Delivery Method room air Intake Visit Reasons: 3 M FU Chief Complaint: 3 M FU Is patient in pain?: No Allergies valsartan (From Fusion-io) Allergy (Severe, Verified 11/15/24 15:05) Angioedema codeine Allergy (Verified 11/15/24 15:05) Unknown lisinopril Allergy (Verified 11/15/24 15:05) Angioedema Medications ???Medication ???Instructions ???Recorded ???Confirmed ???Type omeprazole 20 mg capsule,delayed 20 mg PO DAILY PRN 09/22/23 History release amlodipine 5 mg tablet 5 mg PO QDAY #90 tabs 09/26/2405/02 Rx hydrochlorothiazide 25 mg tablet 25 mg PO QDAY #90 tabs 09/26/24 Rx metformin 500 mg tablet,extended 2,000 mg (4 x 500 mg) PO QHS blood 09/26/24 11/15/24 Rx release 24 hr sugar #360 tabs metoprolol succinate 200 mg 200 mg PO QHS blood presure #90 11/15/24 Rx tablet,extended release 24 hr tabs aspirin 81 mg tablet,delayed 81 mg PO QDAY 09/27/24 11/15/24 Hi story release sitagliptin phosphate 100 mg 100 mg PO QDAY #90 tabs 10/01/24 0 11/15/24 Rx tablet (Januvia) glimepiride 4 mg tablet 4 mg PO BID 3 months #180 tabs 05/0211/15/24 Rx Have you fallen in the past year?: No PFSH Medical History Abdominal discomfort Colon cancer screening Preventative health care chemotherapy resumed x3 cycles, S/P 6 cycles of chemo total pelvis and para-aortic region RT; 5040 cGy in 28 fractions chemotherapy with carboplatin and taxol x3 cycles Essential hypertension Endometrial cancer DM type 2 (diabetes mellitus, type 2) HTN (hypertension) HLD (hyperlipidemia) Lymphedema Syncope and collapse Surgical History peritoneal biopies ( 09/2017) debulking of bulky para-aortic nodes ( 09/2017) debulking of bulky pelvic nodes w/rt pelvic lymphadenectomy ( 09/2017) Infra-colic omentectomy ( 09/2017) Bladder peritonectomy ( 09/2017) H/O exploratory laparotomy ( 09/2017) Hx of laparoscopy ( 09/2017) History of total abdominal hysterectomy and bilateral salpingo-oophorectomy ( 09/2017) History of tonsillectomy and adenoidectomy History of hip surgery Family History Mother Breast cancer Hypertension Heart disease Father Diabetes Hypertension Sister Diabetes Heart disease Social History Smoking Status: Former smoker alcohol intake: never substance use type: does not use caffeine: Yes Type: tea what type of physical activity do you participate in: none seatbelt use: always do you feel safe at home: Yes HPI HPI Chief Complaint: 3 M FU Details: ROGERIO STEPHENS, is a 64 F who presents to the office today for follow-up of her chronic conditions. No acute concerns at this time. A1c today is at 9.3 down from 10.2. She states that she has made dietary and lifestyle modification and was hopeful that her A1c would be even lower. She reports taking her medication consistently. No concerns for hypoglycemia. Blood pressure is slightly elevated at 152/88. Did not take hydrochlorothiazide today but reports compliance otherwise. Also states that she has cut back on salt and potato chips. Other chronic medical conditions are stable. ROS Const Constitutional: No body ache, chills, excessive sweating, fatigue, fever(s), frequent falls, headache(s), snoring, weight change, sleep problems, abnormal sleep pattern or change in appetite Eyes Eyes: No blurry vision, change in vision, floaters, visual disturbances, eye pain or Light sensitivity ENT ENT: No abnormal hearing, ear or mastoid pain, tinnitus, balance problems, nosebleed/epistaxis, nasal congestion, headache(s), neck pain or sore throat Resp Respiratory: No cough, excessive phlegm production, pain on inspiration, shortness of breath, snoring or wheezing Cardio Cardiology: No chest pain at rest, chest pain with exertion, excessive sweating, shortness of breath, dyspnea on exertion, lightheadedness, orthopnea or palpitations Gastro GI: No abdominal pain, change in bowel habits, constipation, c (more content not included)... Normal [facility] - Hematology and Cell countsOrdered By: Ahsan Luna on 11-15-2024 HbA1c (Bld) [Mass fraction] 9.3 % High 4.2-6.3 [facility] Cancer Antigen 125on 024 CA 125 15.1 U/mL Normal 0.0-38.1 [facility] Comment on above: Result Comment: [facility] Electrochemiluminescence Immunoassay (ECLIA) Values obtained with different assay methods or kits cannot be used interchangeably. Results cannot be interpreted as absolute evidence of the presence or absence of malignant disease. Performed at: [address] [id number] Park Superintendent: Nba Chew PhD, Phone: [phone] Performed By: #### L 3100.5000 #### [facility] [address] [place], [place], [id number] Cancer antigen 125 (CA-125) measurementOrdered By: Anca Valera on 09-27-2024 CA 125 Antigen 15.1 U/mL 0.0-38.1 [facility] Comment on above: [facility] El ectrochemiluminescence Immunoassay(ECLIA)Values obtained with different assay methods or kits cannotbe used interchangeably. Results cannot be interpreted asabsolute evidence of the presence or absence of malignantdisease.Performed at: [facility] [id number] Director: Nba Chew PhD, Phone: [phone] Senior Accounting Specialist Office Visit Reporton 09-27-2024 Senior Accounting Specialist Office Visit Report [facility] [address], [address] [place] [address] OFFICE VISIT Date of Service: 09/27/24 MR#: [id number] Acct: [id number] Name: ROGERIO STEPHENS Rep #: [id number] : 1960 Provider: Dr. 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 Is patient in pain?: No Feel stressed/tense/nervous/anxi ous/difficulty sleeping: not at all Allergies valsartan (From Diovan) Allergy (Severe, Verified 09/27/24 15:01) Angioedema codeine Allergy (Verified 09/27/24 15:01) Unknown lisinopril Allergy (Verified 09/27/24 15:01) Angioedema Medications ???Medication ???Instructions ???Recorded ???Confirmed ???Type sitagliptin phosphate 100 mg 100 mg PO QDAY #90 tabs 08/23/23 09/27/24 Rx tablet (Januvia) omeprazole 20 mg capsule,delayed 20 mg PO DAILY PRN 09/22/23 09/27/24 History release glimepiride 2 mg tablet 2 mg PO BID 3 months #180 tabs 08/26/24 09/27/24 Rx amlodipine 5 mg tablet 5 mg PO QDAY #90 tabs 09/26/24 09/27/24 Rx hydrochlorothiazide 25 mg tablet 25 mg PO QDAY #90 tabs 09/26/24 09/27/24 Rx metformin 500 mg tablet,extended 2,000 mg (4 x 500 mg) PO QHS blood 09/26/24 09/27/24 Rx release 24 hr sugar #360 tabs metoprolol succinate 200 mg 200 mg PO QHS blood presure #90 09/26/24 09/27/24 Rx tablet,extended release 24 hr tabs aspirin 81 mg tablet,delayed 81 mg PO QDAY 09/27/24 09/27/24 History release Is last menstrual period known: No Post menopausal: Yes Patient : No : No PFSH Medical History Abdominal discomfort Colon cancer screening Preventative health care chemotherapy resumed x3 cycles, S/P 6 cycles of chemo total pelvis and para-aortic region RT; 5040 cGy in 28 fractions chemotherapy with carboplatin and taxol x3 cycles Essential hypertension Endometrial cancer DM type 2 (diabetes mellitus, type 2) HTN (hypertension) HLD (hyperlipidemia) Lymphedema Syncope and collapse Surgical History peritoneal biopies ( 09/2017) debulking of bulky para-aortic nodes ( 09/2017) debulking of bulky pelvic nodes w/rt pelvic lymphadenectomy ( 09/2017) Infra-colic omentectomy ( 09/2017) Bladder peritonectomy ( 09/2017) H/O exploratory laparotomy ( 09/2017) Hx of laparoscopy ( 09/2017) History of total abdominal hysterectomy and bilateral salpingo-oophorectomy ( 09/2017) History of tonsillectomy and adenoidectomy History of hip surgery Family History Mother Breast cancer Hypertension Heart disease Father Diabetes Hypertension Sister Diabetes Heart disease Social History Smoking Status: Former smoker alcohol intake: never substance use type: does not use caffeine: Yes Type: tea what type of physical activity do you participate in: none seatbelt use: always do you feel safe at home: Yes History 1 Elective abortions Hx Para 1 Spontaneous abortions Hx # Term Pregnancies Ectopic pregnancies Hx # Pregnancies Multiple births # of living children HPI Encounter for routine gynecological examination Details: ROGERIO STEPHENS is a 64 year old who presents for annual exam. Last PAP: hysterectomy History of abnormal PAP: Last mammogram: 12/08/2023 - normal History of abnormal mammogram: Colon cancer screening: colonoscopy - January 2022, normal results Other preventative health care screenings: PCP is Dr. Luna, PCP orders routine labs, done last in August 2024 ROS Const Constitutional: Reports as per HPI; Denies fatigue, increased appetite, poor appetite, weight gain or weight loss Cardio Card: Denies chest pain Resp Resp: Denies cough or dyspnea GI GI: Reports as per HPI; Denies abdominal pain, bloating, constipation, nausea or vomiting : Reports as per HPI and other; Denies difficulty voiding, dysuria, hematuria, nipple discharge, pelvic pain, prolapse symptoms, urinary frequency, urinary incontinence, urinary urgency, vaginal discharge, vaginal dryness, vaginal odor or vaginal pruritus Skin Skin/Breast: Denies changing lesions, breast mass, breast pain, breast skin changes or nipple discharge Psych Psych: Denies anxiety or depression Exam Const General: cooperative, healthy appearing, comfortable, no acute distress, well developed and well groomed HENLA Head: normal to inspection and normocephalic Ears: hearing grossly normal bilaterally and ext (more content not included)... Normal [facility] CBC W/Diff, Automatedon 08-09 Absolute Lymph 1.07 X10 3/uL Normal 0.83-4.51 [facility] Comment on above: Performed By: #### L 100.0100, L500.4050, L501.9985, L500.4100 #### [facility] [address] [place], [place], [id number] Absolute Neut 5.6 X10 3/uL Normal 2.0-7.7 [facility] Comment on above: Performed By: #### L 100.0100, L500.4050, L501.9985, L500.4100 #### [facility] [address] [place], [address] Basophils/100 WBC (Bld) 0.5 % Normal 0-1 [facility] Comment on above: Performed By: #### L 100.0100, L500.4050, L501.9985, L500.4100 #### [facility] [address] [place], [address] Eosinophils/100 WBC (Bld) 3.1 % Normal 0-5 [facility] Comment on above: Performed By: #### L 100.0100, L500.4050, L501.9985, L500.4100 #### [facility] [address] [place], [address] Erythrocyte distribution width (RBC) [Ratio] 14.2 % Normal 11.6-14.6 [facility] Comment on above: Performed By: #### L 100.0100, L500.4050, L501.9985, L500.4100 #### [facility] [address] [place], [address] Hematocrit (Bld) [Volume fraction] 45.4 % Normal 37-47 [facility] Comment on above: Performed By: #### L 100.0100, L500.4050, L501.9985, L500.4100 #### [facility] [address] [place], [address] Hemoglobin (Bld) [Mass/Vol] 14.0 g/dL Normal 12.0-15.0 [facility] Comment on above: Performed By: #### L 100.0100, L500.4050, L501.9985, L500.4100 #### [facility] [address] [place], [address] IG% 0.900 Normal 0.0-0.9 [facility] Comment on above: Result Comment: IG% - Immature Granulocytes (promyelocytes, myelocytes and metamyelocytes) > 1% indicates that a LEFT SHIFT is Present. Performed By: #### L 100.0100, L500.4050, L501.9985, L500.4100 #### [facility] [address] [place], [address] Lymphocytes/100 WBC (Bld) 13.8 % Low 19-41 [facility] Comment on above: Performed By: #### L 100.0100, L500.4050, L501.9985, L500.4100 #### [facility] [address] [place], [address] MCH (RBC) [Entitic mass] 27.7 pg Normal 27.0-32.0 [facility] Comment on above: Performed By: #### L 100.0100, L500.4050, L501.9985, L500.4100 #### [facility] [address] [place], [address] MCHC (RBC) [Mass/Vol] 30.8 g/dL Low 32-36 [facility] Comment on above: Performed By: #### L 100.0100, L500.4050, L501.9985, L500.4100 #### [facility] [address] [place], [address] MCV (RBC) [Entitic vol] 89.9 fL Normal 81-99 [facility] Comment on above: Performed By: #### L 100.0100, L500.4050, L501.9985, L500.4100 #### [facility] [address] [place], [address] Monocytes/100 WBC (Bld) 10.0 % Normal 0-10 [facility] Comment on above: Performed By: #### L 100.0100, L500.4050, L501.9985, L500.4100 #### [facility] [address] [place], [address] Neutrophils/100 WBC (Bld) 71.7 % High 47-70 [facility] Comment on above: Performed By: #### L 100.0100, L500.4050, L501.9985, L500.4100 #### [facility] [address] [place], [address] Nucleated RBC (Bld) [#/Vol] 0 10*3/uL Normal 0-5 [facility] Comment on above: Performed By: #### L 100.0100, L500.4050, L501.9985, L500.4100 #### [facility] [address] [place], [address] Platelet mean volume (Bld) [Entitic vol] 10.2 fL Normal 6.2-12.0 [facility] Comment on above: Performed By: #### L 100.0100, L500.4050, L501.9985, L500.4100 #### [facility] [address] [place], [address] Platelets (Bld) [#/Vol] 259 10*3/uL Normal 150-450 [facility] Comment on above: Performed By: #### L 100.0100, L500.4050, L501.9985, L500.4100 #### [facility] [address] [place], [address] RBC (Bld) [#/Vol] 5.05 10*6/uL Normal 4.2-5.4 [facility] Comment on above: Performed By: #### L 100.0100, L500.4050, L501.9985, L500.4100 #### [facility] [address] [place], [address] RDW SD 46.3 fl High 35.1-43.9 [facility] Comment on above: Performed By: #### L 100.0100, L500.4050, L501.9985, L500.4100 #### [facility] [address] [place], [address] WBC (Bld) [#/Vol] 7.8 10*3/uL Normal 4.4-11.0 [facility] Comment on above: Performed By: #### L 100.0100, L500.4050, L501.9985, L500.4100 #### [facility] [address] [place], [address] Comprehensive Metabolic Prof ilon 08-23-2024 Albumin [Mass/Vol] 3.2 g/dL Normal 3.2-5.0 [facility] Comment on above: Performed By: #### L 100.0100, L500.4050, L501.9985, L500.4100 #### [facility] [address] [place], [address] Albumin/Globulin [Mass ratio] 0.8 {ratio} Low 0.9-2.4 [facility] Comment on above: Performed By: #### L 100.0100, L500.4050, L501.9985, L500.4100 #### [facility] [address] [place], [address] ALK P 83 U/L Normal 45-117 [facility] Comment on above: Performed By: #### L 100.0100, L500.4050, L501.9985, L500.4100 #### [facility] [address] [place], [address] ALT [Catalytic activity/Vol] 23 U/L Normal 13-56 [facility] Comment on above: Performed By: #### L 100.0100, L500.4050, L501.9985, L500.4100 #### [facility] [address] [place], [address] AST [Catalytic activity/Vol] 18 U/L Normal 15-37 [facility] Comment on above: Performed By: #### L 100.0100, L500.4050, L501.9985, L500.4100 #### [facility] [address] [place], [address] Bilirubin [Mass/Vol] 0.50 mg/dL Normal 0.20-1.00 [facility] Comment on above: Result Comment: For patients on eltrombopag therapy, use of Dimension [place] TBIL is not recommended. Performed By: #### L 100.0100, L500.4050, L501.9985, L500.4100 #### [facility] [address] [place], [address] BUN/CRE 24.8 RATIO High 10-20 [facility] Comment on above: Performed By: #### L 100.0100, L500.4050, L501.9985, L500.4100 #### [facility] [address] [place], [address] CA,Total 9.6 mg/dL Normal 8.5-10.1 [facility] Comment on above: Performed By: #### L 100.0100, L500.4050, L501.9985, L500.4100 #### [facility] [address] [place], [address] Chloride [Moles/Vol] 101 mmol/L Normal 98-107 [facility] Comment on above: Performed By: #### L 100.0100, L500.4050, L501.9985, L500.4100 #### [facility] [address] [place], [address] CO2 [Moles/Vol] 29.0 mmol/L Normal 21.0-32.0 [facility] Comment on above: Performed By: #### L 100.0100, L500.4050, L501.9985, L500.4100 #### [facility] [address] [place], [address] Creatinine [Mass/Vol] 0.64 mg/dL Normal 0.55-1.02 [facility] Comment on above: Result Comment: The validity of the calculated GFR GFRAA in patients over 70 years has not been determined. Clinical correlation is essential. Performed By: #### L 100.0100, L500.4050, L501.9985, L500.4100 #### [facility] [address] [place], [address] EST GFR - AA 120 mL/min Normal >60 [facility] Comment on above: Result Comment: Afri can Stateless GFR Calc Performed By: #### L 100.0100, L500.4050, L501.9985, L500.4100 #### [facility] [address] [place], [address] GAP 7 Normal 5-15 [facility] Comment on above: Performed By: #### L 100.0100, L500.4050, L501.9985, L500.4100 #### [facility] [address] [place], [address] GFR/1.73 sq M.predicted among non-blacks MDRD (S/P/Bld) [Vol rate/Area] 99 mL/min/{1.73_m2} Normal >60 [facility] Comment on above: Result Comment: Non- GFR Calc Performed By: #### L 100.0100, L500.4050, L501.9985, L500.4100 #### [facility] [address] [place], [address] Globulin (S) [Mass/Vol] 4.2 g/dL Normal 2.2-4.2 [facility] Comment on above: Performed By: #### L 100.0100, L500.4050, L501.9985, L500.4100 #### [facility] [address] [place], [address] Glucose [Mass/Vol] 208 mg/dL High 74-106 [facility] Comment on above: Result Comment: Gluc ose result greater than or equal to 200 mg/dL suggests DIABETES MELLITUS per A.D.A. criteria. Performed By: #### L 100.0100, L500.4050, L501.9985, L500.4100 #### [facility] [address] [place], [address] Potassium [Moles/Vol] 4.2 mmol/L Normal 3.5-5.1 [facility] Comment on above: Performed By: #### L 100.0100, L500.4050, L501.9985, L500.4100 #### [facility] [address] [place], [address] Sodium [Moles/Vol] 137 mmol/L Normal 136-145 [facility] Comment on above: Performed By: #### L 100.0100, L500.4050, L501.9985, L500.4100 #### [facility] [address] [place], [address] T PROT 7.4 g/dL Normal 6.4-8.2 [facility] Comment on above: Performed By: #### L 100.0100, L500.4050, L501.9985, L500.4100 #### [facility] [address] [place], [address] Urea nitrogen [Mass/Vol] 16 mg/dL Normal 7-18 [facility] Comment on above: Performed By: #### L 100.0100, L500.4050, L501.9985, L500.4100 #### [facility] [address] [place], [place], [address] Hemoglobin A1con 08-23-2024 HbA1c (Bld) [Mass fraction] 10.2 % High 3.8-5.6 [facility] Comment on above: Result Comment: Norm al < 5.7 % Prediabetic 5.7 - 6.4 % Diabetic >or= 6.5 % Please note range changes. Performed By: #### L 100.0100, L500.4050, L501.9985, L500.4100 #### [facility] [address] [place], [place], [address] Internal Medicine Office Vis iton 08-23-2024 Internal Medicine Office Visit [facility] [address] [place], [place] [address] OFFICE VISIT Date of Service: 08/23/24 MR#: [id number] Acct: [id number] Name: ROGERIO STEPHENS Rep #: [id number] : 1960 Provider: Dr. 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 Accompanied by: Self Is patient in pain?: No Allergies valsartan (From Fusion-[employer]) Allergy (Severe, Verified 08/23/24 12:52) Angioedema codeine Allergy (Verified 08/23/24 12:52) Unknown lisinopril Allergy (Verified 08/23/24 12:52) Angioedema Medications ???Medication ???Instructions ???Recorded ???Confirmed ???Type aspirin 325 mg tablet,delayed 81 mg PO QDAY 08/18/20 08/23/24 History release amlodipine 5 mg tablet 5 mg PO QDAY #90 tabs 08/23/23 08/23/24 Rx glimepiride 2 mg tablet 2 mg PO QAM #90 tabs 08/23/23 08/23/24 Rx hydrochlorothiazide 25 mg tablet 25 mg PO QDAY #90 tabs 08/23/23 08/23/24 Rx metformin 500 mg tablet,extended 2,000 mg (4 x 500 mg) PO QHS blood 08/23/23 08/23/24 Rx release 24 hr sugar #360 tabs metoprolol succinate 200 mg 200 mg PO QHS blood presure #90 08/23/23 08/23/24 Rx tablet,extended release 24 hr tabs sitagliptin phosphate 100 mg 100 mg PO QDAY #90 tabs 08/23/23 08/23/24 Rx tablet (Januvia) omeprazole 20 mg capsule,delayed 20 mg PO DAILY PRN 09/22/23 08/23/24 History release furosemide 20 mg tablet 20 mg PO Q OTHER DAY #3 tabs 08/05/24 08/23/24 Rx PFSH Medical History Abdominal discomfort Colon cancer screening Preventative health care chemotherapy resumed x3 cycles, S/P 6 cycles of chemo total pelvis and para-aortic region RT; 5040 cGy in 28 fractions chemotherapy with carboplatin and taxol x3 cycles Essential hypertension Endometrial cancer DM type 2 (diabetes mellitus, type 2) HTN (hypertension) HLD (hyperlipidemia) Lymphedema Syncope and collapse Surgical History peritoneal biopies ( 09/2017) debulking of bulky para-aortic nodes ( 09/2017) debulking of bulky pelvic nodes w/rt pelvic lymphadenectomy ( 09/2017) Infra-colic omentectomy ( 09/2017) Bladder peritonectomy ( 09/2017) H/O exploratory laparotomy ( 09/2017) Hx of laparoscopy ( 09/2017) History of total abdominal hysterectomy and bilateral salpingo-oophorectomy ( 09/2017) History of tonsillectomy and adenoidectomy History of hip surgery Family History Mother Breast cancer Hypertension Heart disease Father Diabetes Hypertension Sister Diabetes Heart disease Social History Smoking Status: Former smoker alcohol intake: never substance use type: does not use caffeine: Yes Type: tea what type of physical activity do you participate in: none seatbelt use: always do you feel safe at home: Yes HPI HPI Chief Complaint: 6m f/u Details: ROGERIO STEPHENS, is a 64 F who presents to the office today for yearly. No acute concerns. No significant changes since her last yearly. Significant physical limitation so does not exercise but tries to stay active. Follows up with [employer]GER and mammogram is up-to-date. Last colonoscopy was by Dr. Tavarez about 2 years ago and a 6-year follow-up was recommended. Plans to get her flu shot at work. No tobacco or alcohol abuse. ROS Const Constitutional: No body ache, chills, excessive sweating, fatigue, fever(s), frequent falls, headache(s), snoring, weakness or change in appetite Eyes Eyes: No blurry vision, change in vision, floaters, visual disturbances, eye pain or Light sensitivity ENT ENT: No abnormal hearing, ear or mastoid pain, tinnitus, balance problems, nosebleed/epistaxis, nasal congestion, headache(s), neck pain or sore throat Resp Respiratory: No cough, excessive phlegm production, pain on inspiration, shortness of breath, snoring or wheezing Cardio Cardiology: No chest pain at rest, chest pain with exertion, excessive sweating, dyspnea on exertion, lightheadedness, orthopnea or palpitations Gastro GI: No abdominal pain, change in bowel habits, constipation, cramping, diarrhea, nausea/dyspepsia or vomiting Genitourinary-Female: No burning urination, painful urination, urinary incontinence, urinary frequency, suprapubic fullness or side pain (more content not included)... Normal [facility] Lipid Profileon 08-23-2024 Cholesterol [Mass/Vol] 141 mg/dL Normal 200 [facility] Comment on above: Result Comment: <200 mg/dL Desirable 200-240 mg/dL Borderline >240 mg/dL High Risk Performed By: #### L 100.0100, L500.4050, L501.9985, L500.4100 #### [facility] [address] [place], [address] Cholesterol in HDL [Mass/Vol] 40 mg/dL Normal [facility] Comment on above: Result Comment: The drugs N-Acetylcysteine and Metamizole may falsely depress this assay. Reference Range HDL <40 mg/dL Low HDL Cholesterol HDL >or= 60 mg/dL High HDL Cholesterol Performed By: #### L 100.0100, L500.4050, L501.9985, L500.4100 #### [facility] [address] [place], [address] Cholesterol in LDL [Mass/Vol] 54 mg/dL Normal 0-130 [facility] Comment on above: Performed By: #### L 100.0100, L500.4050, L501.9985, L500.4100 #### [facility] [address] [place], [address] Cholesterol in VLDL [Mass/Vol] 47 mg/dL High 5-40 [facility] Comment on above: Performed By: #### L 100.0100, L500.4050, L501.9985, L500.4100 #### [facility] [address] [place], [address] Triglyceride [Mass/Vol] 233 mg/dL High [facility] Comment on above: Result Comment: The drugs N-Acetylcysteine and Metamizole may falsely depress this assay. Serum Triglycerides Reference Interval Normal <150 mg/dL Borderline high 150 - 199 mg/dL High 200 - 499 mg/dL Very High > or = 500 mg/dL Performed By: #### L 100.0100, L500.4050, L501.9985, L500.4100 #### [facility] [address] [place], [address] Basophil percentageOrdered B y: Ahsan Gómezlex on 01-12-2024 Chloride [Moles/Vol] 103 mmol/L 98-107 [facility] Glucose [Mass/Vol] 144 mg/dL 74-106 [facility] Comment on above: Fasting Glucose resu lt greater than or equal to 126 mg/dL suggests DIABETES MELLITUS per A.D.A. criteria. Potassium [Moles/Vol] 4.1 mmol/L 3.5-5.1 [facility] Sodium [Moles/Vol] 142 mmol/L 136-145 [facility] - Chemistry and C hemistry - challengeOrdered By: Ahsan Luna on 01-12-2024 CO2 [Moles/Vol] 31.0 mmol/L 21.0-32.0 [facility] Urea nitrogen/Creatinine [Mass ratio] 20.9 mg/mg 10-20 [facility] No Panel InformationOrdered By: Ahsan Luna on 01-12-2024 Estimated GFR (MDRD) Amer 99 mL/min >60 [facility] Comment on above: GFR Calc Estimated GFR (MDRD) Non-Af Amer 82 mL/min >60 [facility] Comment on above: Non- GFR Calc Serum or plasma calcium rocco urement (mass/volume)Ordered By: Ahsan Luna on 01-12-2024 Calcium [Mass/Vol] 9.7 mg/dL 8.5-10.1 [facility] Serum or plasma creatinine m easurement (mass/volume)Ordered By: Ahsan Luna on 01-12-2024 Creatinine [Mass/Vol] 0.76 mg/dL 0.55-1.02 [facility] Comment on above: The validity of the calculated GFR & GFRAA in patients over 70 years has not been determined. Clinical correlation is essential. Serum or plasma urea nitroge n measurement (mass/volume)Ordered By: Ahsan Luna on 01-12-2024 Urea nitrogen [Mass/Vol] 16 mg/dL 7-18 [facility] Thin prep Papanicolaou smear with manual screeningOrdered By: Ahsan Luna on 01-12-2024 Thin prep Papanicolaou smear with manual screening 8 5-15 [facility] Whole blood hemoglobin A1c/t otal hemoglobin ratio (mass fraction)Ordered By: Ahsan Luna on 01-12-2024 HbA1c (Bld) [Mass fraction] 8.5 % 3.8-5.6 [facility] Comment on above: Normal < 5.7 % Predi abetic 5.7 - 6.4 % Diabetic >or= 6.5 % Please note range changes. Absolute lymphocyte countOrd ered By: Ahsan Luna on 08-21-2023 Lymphocytes Auto (Unsp spec) [#/Vol] 1.05 10*3/uL 0.83-4.51 [facility] Basophil percentageOrdered B y: Ahsan Luna on 08-21-2023 Basophils/100 WBC (Bld) 0.4 % 0-1 [facility] Bilirubin [Mass/Vol] 0.40 mg/dL 0.20-1.00 [facility] Comment on above: For patients on eltr ombopag therapy, use of [employer] [place] TBIL is not recommended. Chloride [Moles/Vol] 104 mmol/L 98-107 [facility] Cholesterol [Mass/Vol] 141 mg/dL <200 [facility] Comment on above: <200 mg/dL Desirable 200-240 mg/dL Borderline >240 mg/dL High Risk Eosinophils/100 WBC (Bld) 3.0 % 0-5 [facility] Glucose [Mass/Vol] 110 mg/dL 74-106 [facility] Comment on above: Fasting Glucose resu lt from 100 to 125 mg/dL suggests IMPAIRED HOMEOSTASIS per A.D.A. criteria. Neutrophils (Bld) [#/Vol] 4.7 10*3/uL 2.0-7.7 [facility] Neutrophils/100 WBC (Bld) 69.6 % 47-70 [facility] Potassium [Moles/Vol] 3.6 mmol/L 3.5-5.1 [facility] Protein [Mass/Vol] 7.4 g/dL 6.4-8.2 [facility] Sodium [Moles/Vol] 139 mmol/L 136-145 [facility] Triglyceride [Mass/Vol] 169 mg/dL <199 [facility] Comment on above: The drugs N-Acetylcy steine and Metamizole may falsely depress this assay.Serum Triglycerides Reference Interval Normal <150 mg/dL Borderline high 150 - 199 mg/dL High 200 - 499 mg/dL Very High > or = 500 mg/dL WBC (Bld) [#/Vol] 6.8 10*3/uL 4.4-11.0 [facility] Blood erythrocytes count (nu mber/volume)Ordered By: Ahsan Luna on 08-21-2023 RBC (Bld) [#/Vol] 5.06 10*6/uL 4.2-5.4 [facility] Blood hemoglobin measurement (mass/volume)Ordered By: Ahsan Luna on 08-21-2023 Hemoglobin (Bld) [Mass/Vol] 14.4 g/dL 12.0-15.0 [facility] Blood lymphocytes/100 leukoc ytesOrdered By: chayomanchestercarlos a Luna on 08-21-2023 Lymphocytes/100 WBC (Bld) 15.5 % 19-41 [facility] Blood monocytes/100 leukocyt esOrdered By: [facility] on 08-21-2023 Monocytes/100 WBC (Bld) 10.9 % 0-10 [facility] Blood platelet mean volumeOr dered By: [facility] Luna on 08-21-2023 Platelet mean volume (Bld) [Entitic vol] 10.2 fL 6.2-12.0 [facility] Determination of erythrocyte mean corpuscular volume (MCV)Ordered By: chayomanchestercarlos a Luna on 08-21-2023 MCV (RBC) [Entitic vol] 89.5 fL 81-99 [facility] Hematocrit Auto (Bld) [Volum e fraction]Ordered By: Ahsan Luna on 08-21-2023 Hematocrit (Bld) [Volume fraction] 45.3 % 37-47 [facility] - Chemistry and C hemistry - challengeOrdered By: Ahsan Luna on 08-21-2023 ALP [Catalytic activity/Vol] 80 U/L 45-117 [facility] ALT [Catalytic activity/Vol] 25 U/L 13-56 [facility] CO2 [Moles/Vol] 27.0 mmol/L 21.0-32.0 [facility] Globulin (S) [Mass/Vol] 4.0 g/dL 2.2-4.2 [facility] Urea nitrogen/Creatinine [Mass ratio] 29.3 mg/mg 10-20 [facility] - Hematology and Cell countsOrdered By: Ahsan Luna on 08-21-2023 Erythrocyte distribution width (RBC) [Entitic vol] 45.3 fL 35.1-43.9 [facility] Erythrocyte distribution width (RBC) [Ratio] 13.8 % 11.6-14.6 [facility] Immature granulocytes/100 WBC (Bld) 0.600 % 0.0-0.9 [facility] Comment on above: IG% - Immature Granu locytes (promyelocytes, myelocytes and metamyelocytes) > 1% indicates that a LEFT SHIFT is Present. MCH (RBC) [Entitic mass] 28.5 pg 27.0-32.0 [facility] Nucleated RBC/100 WBC (Bld) [Ratio] 0 % 0-5 [facility] MCHC Auto (RBC) [Mass/Vol]Or dered By: Ahsan Luna on 08-21-2023 MCHC (RBC) [Mass/Vol] 31.8 g/dL 32-36 [facility] No Panel InformationOrdered By: Ahsan Luna on 08-21-2023 Estimated GFR (MDRD) Amer 112 mL/min >60 [facility] Comment on above: GFR Calc Estimated GFR (MDRD) Non-Af Amer 93 mL/min >60 [facility] Comment on above: Non- GFR Calc Platelets bldOrdered By: Walter Luna on 08-21-2023 Platelets (Bld) [#/Vol] 244 10*3/uL 150-450 [facility] Serum or plasma albumin rococ urement (mass/volume)Ordered By: Ahsan Luna on 08-21-2023 Albumin [Mass/Vol] 3.4 g/dL 3.2-5.0 [facility] Serum or plasma albumin/glob ulin mass ratioOrdered By: Ahsan Luna on 08-21-2023 Albumin/Globulin [Mass ratio] 0.8 {ratio} 0.9-2.4 [facility] Serum or plasma calcium rocco urement (mass/volume)Ordered By: Ahsan Luna on 08-21-2023 Calcium [Mass/Vol] 9.0 mg/dL 8.5-10.1 [facility] Serum or plasma cholesterol in HDL measurement (mass/volume)Ordered By: Ahsan Luna on 08-21-2023 Cholesterol in HDL [Mass/Vol] 41 mg/dL >40 [facility] Comment on above: The drugs N-Acetylcy steine and Metamizole may falsely depress this assay. Reference Range HDL <40 mg/dL Low HDL Cholesterol HDL >or= 60 mg/dL High HDL Cholesterol Serum or plasma cholesterol in VLDL measurement (mass/volume)Ordered By: Ahsan Luna on 08-21-2023 Cholesterol in VLDL [Mass/Vol] 34 mg/dL 5-40 [facility] Serum or plasma creatinine m easurement (mass/volume)Ordered By: Ahsan Luna on 08-21-2023 Creatinine [Mass/Vol] 0.68 mg/dL 0.55-1.02 [facility] Comment on above: The validity of the calculated GFR & GFRAA in patients over 70 years has not been determined. Clinical correlation is essential. Serum or plasma low density lipoprotein (LDL) cholesterol measurement (mass/volume)Ordered By: Ahsan Luna on 08-21-2023 Cholesterol in LDL [Mass/Vol] 66 mg/dL 0-130 [facility] Serum or plasma urea nitroge n measurement (mass/volume)Ordered By: Ahsan Luna on 08-21-2023 Urea nitrogen [Mass/Vol] 20 mg/dL 7-18 [facility] Thin prep Papanicolaou smear with manual screeningOrdered By: Ahsan Luna on 08-21-2023 Thin prep Papanicolaou smear with manual screening 16 U/L 15-37 [facility] Thin prep Papanicolaou smear with manual screening 8 5-15 [facility] Basophil percentageOrdered B y: Ahsan Luna on 06-29-2023 Chloride [Moles/Vol] 103 mmol/L 98-107 [facility] Glucose [Mass/Vol] 125 mg/dL 74-106 [facility] Comment on above: Fasting Glucose resu lt from 100 to 125 mg/dL suggests IMPAIRED HOMEOSTASIS per A.D.A. criteria. Potassium [Moles/Vol] 3.8 mmol/L 3.5-5.1 [facility] Sodium [Moles/Vol] 142 mmol/L 136-145 [facility] - Chemistry and C hemistry - challengeOrdered By: Ahsan Luna on 06-29-2023 CO2 [Moles/Vol] 32.0 mmol/L 21.0-32.0 [facility] Urea nitrogen/Creatinine [Mass ratio] 21.2 mg/mg 10-20 [facility] No Panel InformationOrdered By: Ahsan Luna on 06-29-2023 Estimated GFR (MDRD) Amer 140 mL/min >60 [facility] Comment on above: GFR Calc Estimated GFR (MDRD) Non-Af Amer 115 mL/min >60 [facility] Comment on above: Non- GFR Calc Serum or plasma calcium rocco urement (mass/volume)Ordered By: Ahsan Luna on 06-29-2023 Calcium [Mass/Vol] 9.4 mg/dL 8.5-10.1 [facility] Serum or plasma creatinine m easurement (mass/volume)Ordered By: Ahsan Luna on 06-29-2023 Creatinine [Mass/Vol] 0.57 mg/dL 0.55-1.02 [facility] Comment on above: The validity of the calculated GFR & GFRAA in patients over 70 years has not been determined. Clinical correlation is essential. Serum or plasma urea nitroge n measurement (mass/volume)Ordered By: Ahsan Luna on 06-29-2023 Urea nitrogen [Mass/Vol] 12 mg/dL -18 [facility] Thin prep Papanicolaou smear with manual screeningOrdered By: Ahsan Luna on 06-29-2023 Thin prep Papanicolaou smear with manual screening 7 5-15 [facility] Whole blood hemoglobin A1c/t otal hemoglobin ratio (mass fraction)Ordered By: Ahsan Luna on 06-29-2023 HbA1c (Bld) [Mass fraction] 7.1 % 3.8-5.6 [facility] Comment on above: Normal < 5.7 % Predi abetic 5.7 - 6.4 % Diabetic >or= 6.5 % Please note range changes. Serum or plasma carcinoembry onic antigen measurement (mass/volume)Ordered By: Tang Butler on 02-06-2023 Carcinoembryonic Ag [Mass/Vol] 1.5 ng/mL 0.0-4.7 [facility] Comment on above: Nonsmokers <3.9 Smok ers [facility] Electrochemiluminescence Immunoassay(ECLIA)Values obtained with different assay methods or kitscannot be used interchangeably. Results cannot beinterpreted as absolute evidence of the presence orabsence of malignant disease.Performed at: [facility] [employer] [id number] Director: Nba Chew PhD, Phone: [phone] Absolute lymphocyte counton 08-17-2022 Lymphocytes Auto (Unsp spec) [#/Vol] 0.96 10*3/uL 0.83-4.51 [facility] Work Phone: Basophil percentageon 2021 Basophils/100 WBC (Bld) 0.5 % 0-1 [facility] Work Phone: Bilirubin [Mass/Vol] 0.60 mg/dL 0.20-1.00 [facility] Work Phone: Comment on above: For patients on eltr ombopag therapy, use of [employer] [place] TBIL is not recommended. Chloride [Moles/Vol] 105 mmol/L 98-107 [facility] Work Phone: Cholesterol [Mass/Vol] 144 mg/dL <200 [facility] Work Phone: Comment on above: <200 mg/dL Desirable 200-240 mg/dL Borderline >240 mg/dL High Risk Eosinophils/100 WBC (Bld) 3.6 % 0-5 [facility] Work Phone: Glucose [Mass/Vol] 94 mg/dL 74-106 [facility] Work Phone: Neutrophils (Bld) [#/Vol] 4.2 10*3/uL 2.0-7.7 [facility] Work Phone: Neutrophils/100 WBC (Bld) 68.8 % 47-70 [facility] Work Phone: Potassium [Moles/Vol] 3.6 mmol/L 3.5-5.1 [facility] Work Phone: Protein [Mass/Vol] 7.5 g/dL 6.4-8.2 [facility] Work Phone: Sodium [Moles/Vol] 140 mmol/L 136-145 [facility] Work Phone: Triglyceride [Mass/Vol] 149 mg/dL <199 [facility] Work Phone: Comment on above: The drugs N-Acetylcy steine and Metamizole may falsely depress this assay.Serum Triglycerides Reference Interval Normal <150 mg/dL Borderline high 150 - 199 mg/dL High 200 - 499 mg/dL Very High > or = 500 mg/dL WBC (Bld) [#/Vol] 6.1 10*3/uL 4.4-11.0 [facility] Work Phone: Blood erythrocytes count (nu mber/volume)on 08-17-2022 RBC (Bld) [#/Vol] 4.89 10*6/uL 4.2-5.4 [facility] Work Phone: Blood hemoglobin measurement (mass/volume)on 08-17-2022 Hemoglobin (Bld) [Mass/Vol] 13.6 g/dL 12.0-15.0 [facility] Work Phone: Blood lymphocytes/100 leukoc yteson 08-17-2022 Lymphocytes/100 WBC (Bld) 15.8 % 19-41 [facility] Work Phone: Blood monocytes/100 leukocyt eson 08-17-2022 Monocytes/100 WBC (Bld) 10.1 % 0-10 [facility] Work Phone: Blood platelet mean volumeon 08-17-2022 Platelet mean volume (Bld) [Entitic vol] 10.5 fL 6.2-12.0 [facility] Work Phone: [phone] Determination of erythrocyte mean corpuscular volume (MCV)on 08-17-2022 MCV (RBC) [Entitic vol] 89.0 fL 81-99 [facility] Work Phone: [phone] Hematocrit Auto (Bld) [Volum e fraction]on 08-17-2022 Hematocrit (Bld) [Volume fraction] 43.5 % 37-47 [facility] Work Phone: [phone] Laboratory - Chemistry and C hemistry - challengeon 08-17-2022 ALP [Catalytic activity/Vol] 71 U/L 45-117 [facility] Work Phone: [phone] ALT [Catalytic activity/Vol] 23 U/L 13-56 [facility] Work Phone: [phone] CO2 [Moles/Vol] 28.0 mmol/L 21.0-32.0 [facility] Work Phone: [phone] Globulin (S) [Mass/Vol] 4.1 g/dL 2.2-4.2 [facility] Work Phone: [phone] Urea nitrogen/Creatinine [Mass ratio] 26.6 mg/mg 10-20 [facility] Work Phone: [phone] Laboratory - Hematology and Cell countson 08-17-2022 Erythrocyte distribution width (RBC) [Entitic vol] 46.1 fL 35.1-43.9 [facility] Work Phone: [phone] Erythrocyte distribution width (RBC) [Ratio] 14.3 % 11.6-14.6 [facility] Work Phone: [phone] Immature granulocytes/100 WBC (Bld) 1.200 % 0.0-0.9 [facility] Work Phone: [phone] Comment on above: IG% - Immature Granu locytes (promyelocytes, myelocytes and metamyelocytes) > 1% indicates that a LEFT SHIFT is Present. MCH (RBC) [Entitic mass] 27.8 pg 27.0-32.0 [facility] Work Phone: Nucleated RBC/100 WBC (Bld) [Ratio] 0 % 0-5 [facility] Work Phone: MCHC Auto (RBC) [Mass/Vol]on 08-17-2022 MCHC (RBC) [Mass/Vol] 31.3 g/dL 32-36 [facility] Work Phone: No Panel Informationon 08-17 Estimated GFR (MDRD) Amer 152 mL/min >60 [facility] Work Phone: Comment on above: GFR Calc Estimated GFR (MDRD) Non-Af Amer 126 mL/min >60 [facility] Work Phone: Comment on above: Non- GFR Calc Platelets bldon 08-17-2022 Platelets (Bld) [#/Vol] 232 10*3/uL 150-450 [facility] Work Phone: [phone] Serum or plasma albumin rocco urement (mass/volume)on 08-17-2022 Albumin [Mass/Vol] 3.4 g/dL 3.2-5.0 [facility] Work Phone: Serum or plasma albumin/glob ulin mass ratioon 08-17-2022 Albumin/Globulin [Mass ratio] 0.8 {ratio} 0.9-2.4 [facility] Work Phone: Serum or plasma calcium rocco urement (mass/volume)on 08-17-2022 Calcium [Mass/Vol] 9.6 mg/dL 8.5-10.1 [facility] Work Phone: [phone] Serum or plasma cholesterol in HDL measurement (mass/volume)on 08-17-2022 Cholesterol in HDL [Mass/Vol] 48 mg/dL >40 [facility] Work Phone: [phone] Comment on above: The drugs N-Acetylcy steine and Metamizole may falsely depress this assay. Reference Range HDL <40 mg/dL Low HDL Cholesterol HDL >or= 60 mg/dL High HDL Cholesterol Serum or plasma cholesterol in VLDL measurement (mass/volume)on 08-17-2022 Cholesterol in VLDL [Mass/Vol] 30 mg/dL 5-40 [facility] Work Phone: Serum or plasma creatinine m easurement (mass/volume)on 08-17-2022 Creatinine [Mass/Vol] 0.53 mg/dL 0.55-1.02 [facility] Work Phone: Comment on above: The validity of the calculated GFR & GFRAA in patients over 70 years has not been determined. Clinical correlation is essential. Serum or plasma low density lipoprotein (LDL) cholesterol measurement (mass/volume)on 08-17-2022 Cholesterol in LDL [Mass/Vol] 66 mg/dL 0-130 [facility] Work Phone: Serum or plasma urea nitroge n measurement (mass/volume)on 08-17-2022 Urea nitrogen [Mass/Vol] 14 mg/dL 7-18 [facility] Work Phone: Thin prep Papanicolaou smear with manual screeningon 08-17-2022 Thin prep Papanicolaou smear with manual screening 19 U/L 15-37 [facility] Work Phone: Thin prep Papanicolaou smear with manual screening 7 5-15 [facility] Work Phone: Whole blood hemoglobin A1c/t otal hemoglobin ratio (mass fraction)on 08-17-2022 HbA1c (Bld) [Mass fraction] 6.5 % 3.8-5.6 [facility] Work Phone: Comment on above: Normal < 5.7 % Predi abetic 5.7 - 6.4 % Diabetic >or= 6.5 % Please note range changes. Laboratory - Hematology and Cell countson 06-22-2022 HbA1c (Bld) [Mass fraction] 6.1 % 4.2-6.3 [facility] Work Phone: Laboratory - Hematology and Cell countson 03-04-2022 HbA1c (Bld) [Mass fraction] 7.7 % [facility] Work Phone: Absolute lymphocyte counton 02-08-2022 Lymphocytes Auto (Unsp spec) [#/Vol] 0.96 10*3/uL 0.83-4.51 [facility] Work Phone: Basophil percentageon 2021 Basophils/100 WBC (Bld) 0.6 % 0-1 [facility] Work Phone: Bilirubin [Mass/Vol] 0.50 mg/dL 0.20-1.00 [facility] Work Phone: Comment on above: For patients on eltr ombopag therapy, use of [employer] [place] TBIL is not recommended. Chloride [Moles/Vol] 101 mmol/L 98-107 [facility] Work Phone: Eosinophils/100 WBC (Bld) 2.7 % 0-5 [facility] Work Phone: Glucose [Mass/Vol] 128 mg/dL 74-106 [facility] Work Phone: Comment on above: Fasting Glucose resu lt greater than or equal to 126 mg/dL suggests DIABETES MELLITUS per A.D.A. criteria. Neutrophils (Bld) [#/Vol] 4.4 10*3/uL 2.0-7.7 [facility] Work Phone: Neutrophils/100 WBC (Bld) 69.9 % 47-70 [facility] Work Phone: Potassium [Moles/Vol] 3.7 mmol/L 3.5-5.1 [facility] Work Phone: Protein [Mass/Vol] 7.7 g/dL 6.4-8.2 [facility] Work Phone: Sodium [Moles/Vol] 136 mmol/L 136-145 [facility] Work Phone: WBC (Bld) [#/Vol] 6.3 10*3/uL 4.4-11.0 [facility] Work Phone: Blood erythrocytes count (nu mber/volume)on 02-08-2022 RBC (Bld) [#/Vol] 5.02 10*6/uL 4.2-5.4 [facility] Work Phone: Blood hemoglobin measurement (mass/volume)on 02-08-2022 Hemoglobin (Bld) [Mass/Vol] 14.3 g/dL 12.0-15.0 [facility] Work Phone: Blood lymphocytes/100 leukoc yteson 02-08-2022 Lymphocytes/100 WBC (Bld) 15.3 % 19-41 [facility] Work Phone: [phone] Blood monocytes/100 leukocyt eson 02-08-2022 Monocytes/100 WBC (Bld) 11.0 % 0-10 [facility] Work Phone: [phone] Blood platelet mean volumeon 02-08-2022 Platelet mean volume (Bld) [Entitic vol] 9.6 fL 6.2-12.0 [facility] Work Phone: [phone] Determination of erythrocyte mean corpuscular volume (MCV)on 02-08-2022 MCV (RBC) [Entitic vol] 87.5 fL 81-99 [facility] Work Phone: [phone] Hematocrit Auto (Bld) [Volum e fraction]on 02-08-2022 Hematocrit (Bld) [Volume fraction] 43.9 % 37-47 [facility] Work Phone: Laboratory - Chemistry and C hemistry - challengeon 02-08-2022 ALP [Catalytic activity/Vol] 72 U/L 45-117 [facility] Work Phone: [phone] ALT [Catalytic activity/Vol] 23 U/L 13-56 [facility] Work Phone: [phone] CO2 [Moles/Vol] 29.0 mmol/L 21.0-32.0 [facility] Work Phone: [phone] Globulin (S) [Mass/Vol] 4.2 g/dL 2.2-4.2 [facility] Work Phone: [phone] Urea nitrogen/Creatinine [Mass ratio] 24.0 mg/mg 10-20 [facility] Work Phone: Laboratory - Hematology and Cell countson 02-08-2022 Erythrocyte distribution width (RBC) [Entitic vol] 43.1 fL 35.1-43.9 [facility] Work Phone: [phone] Erythrocyte distribution width (RBC) [Ratio] 13.4 % 11.6-14.6 [facility] Work Phone: [phone] Immature granulocytes/100 WBC (Bld) 0.500 % 0.0-0.9 [facility] Work Phone: [phone] Comment on above: IG% - Immature Granu locytes (promyelocytes, myelocytes and metamyelocytes) > 1% indicates that a LEFT SHIFT is Present. MCH (RBC) [Entitic mass] 28.5 pg 27.0-32.0 [facility] Work Phone: [phone] Nucleated RBC/100 WBC (Bld) [Ratio] 0 % 0-5 [facility] Work Phone: [phone] MCHC Auto (RBC) [Mass/Vol]on 02-08-2022 MCHC (RBC) [Mass/Vol] 32.6 g/dL 32-36 [facility] Work Phone: [phone] Panel Informationon 02-08 CA 125 Antigen 14.7 U/mL [facility] Work Phone: [phone] Comment on above: [facility] El ectrochemiluminescence Immunoassay(ECLIA)Values obtained with different assay methods or kits cannotbe used interchangeably. Results cannot be interpreted asabsolute evidence of the presence or absence of malignantdisease.Performed at: [address] [id number] Director: Nba Chew PhD, Phone: [phone] Estimated Creatinine Clearance Calc 67.48 ml/min [facility] Work Phone: [phone] Estimated GFR (MDRD) Amer 108 mL/min >60 [facility] Work Phone: [phone] Comment on above: GFR Calc Estimated GFR (MDRD) Non-Af Amer 90 mL/min >60 [facility] Work Phone: [phone] Comment on above: Non- GFR Calc Platelets bldon 02-08-2022 Platelets (Bld) [#/Vol] 243 10*3/uL 150-450 [facility] Work Phone: [phone] Serum or plasma albumin rocco urement (mass/volume)on 02-08-2022 Albumin [Mass/Vol] 3.5 g/dL 3.2-5.0 [facility] Work Phone: [phone] Serum or plasma albumin/glob ulin mass ratioon 02-08-2022 Albumin/Globulin [Mass ratio] 0.8 {ratio} 0.9-2.4 [facility] Work Phone: [phone] Serum or plasma calcium rocco urement (mass/volume)on 02-08-2022 Calcium [Mass/Vol] 9.4 mg/dL 8.5-10.1 [facility] Work Phone: [phone] Serum or plasma creatinine m easurement (mass/volume)on 02-08-2022 Creatinine [Mass/Vol] 0.71 mg/dL 0.55-1.02 [facility] Work Phone: Comment on above: The validity of the calculated GFR & GFRAA in patients over 70 years has not been determined. Clinical correlation is essential. Serum or plasma urea nitroge n measurement (mass/volume)on 02-08-2022 Urea nitrogen [Mass/Vol] 17 mg/dL 7-18 [facility] Work Phone: [phone] Thin prep Papanicolaou smear with manual screeningon 02-08-2022 Thin prep Papanicolaou smear with manual screening 12 U/L 15-37 [facility] Work Phone: [phone] Thin prep Papanicolaou smear with manual screening 6 5-15 [facility] Work Phone: [phone] Thin prep Papanicolaou smear with manual screening [phone] U/L [id number] [facility] Work Phone: CULTURE WOUNDon 01-10-2022 CULTURE WOUND CULTURE WOUND _WOUND CULTURE_ M I C R O B I O L O G Y R E P O R T FINAL ------ Antimicrobial Susceptibility and Organism Identification Report ------- Specimen Number : [id number] Requested : 01/10/22 Specimen Source : WOUND Collected : 01/10/22 08:07 [place] of Isolation : OUTPATIENT Received : 01/10/22 08:07 Requesting Physician : MARCO ISABEL Patient/Specimen Tests and Comments Specimen Comments ------- ------- FINAL REPORT: SCANT GROWTH GRAM POSITIVE RODS NORMAL SKIN ADAM source: ulcer right toe Tech : Source : WOUND ID # : [id number] FINAL Report Date : / / : Collected : 01/10/22 08:07 01/18/22.1102.[id number]. 01/14/22.1203.BKO. 01/13/22.1335.BKO. 01/12/22.1134.BKO. 01/18/22.1103.[id number].COMPLETE Normal [facility] Comment on above: Performed By: #### [id number] #### [facility],[address] [place] [address] ALLIED HEALTHon 05-10-2019 ALLIED HEALTH HNO ID: [id number] Author: [facility]errat [facility] Panda Service: Radiology Author Type: Clinical Booster Pump Operator Type: Allied Health Filed: 05/10/2019 11:39 AM Note Text: RADIOLOGY SERVICE PROGRESS NOTE SERVICE DATE: 05/10/2019 SERVICE TIME: 11:37 AM PATIENT IDENTITY VERIFICATION COMPLETED USING TWO (2) METHODS: Patient confirmed name and Date of verbally. PATIENT GENDER DATA: .female : No ALLERGIES: Reviewed and unchanged MEDICATIONS REVIEWED: Not applicable PATIENT RELEVANT IMPLANT DATA REVIEWED: Not Applicable CREATININE: Creatinine Date Value Ref Range Status 02/25/2019 0.50 (L) 0.58 - 0.96 mg/dL Final 09/20/2018 0.51 (L) 0.58 - 0.96 mg/dL Final 06/15/2018 0.58 0.58 - 0.96 mg/dL Final eGFR-All Other Races Date Value Ref Range Status 02/25/2019 >60 . Final Comment: eGFR (Estimated GFR) Units of measure: mL/min/1.73 meters squared eGFR is derived from the reexpressed MDRD Study equation using the following parameters: serum creatinine, age, gender and race. The creatinine assay has been calibrated to be traceable to IDMS. An eGFR <60 mL/min/1.73m2 for >3 months is consistent with chronic kidney disease. Refer to KDOQI guidelines for clinical interpretation. In patients with unstable renal function, e.g. those with acute kidney injury, the eGFR may not accurately reflect actual GFR. eGFR- Date Value Ref Range Status 02/25/2019 >60 Final P.O.C.T. RESULTS: N/A May 10, [address] PERFORMED: No IV SITE: Ambulatory: A peripheral IV was started in the Right forearm with a Angio cath: 22 gauge. POST EXAM PIV STATUS: Discontinued PROCEDURE TYPE: MS INJECT: HIDA. 5.4 mCi Tc99m CHOLETEC. CCK 2.07 micrograms intravenous at 12:20. ADMINISTRATION TIME: 11:15 PATIENT DISCHARGED TO: Ambulatory patient, left MS department area. A Diagnostic radioactive procedure has taken place, with no further precautions necessary other than routine body substance precautions. More information regarding radiation safety can be found using this link: [email or web address]%[email or web address] %[email or web address] f SIGNATURE: Montserrat Brito [facility] PATIENT NAME: Rogerio Stephens DATE: May 10, 2019 TIME: 11:37 AM PAGER/CONTACT #: [facility] HEPATOBILIARY W EF AND/OR RXon 05-10-2019 MS HEPATOBILIARY W EF AND/OR RX * * *Final Report* * * DATE OF EXAM: May 10 2019 1:00AM SARAH 0021 - MS HEPATOBILIARY W EF AND/OR RX / PROCEDURE REASON: R11.0-Nausea * * * * Physician Interpretation * * * * HEPATOBILIARY SCAN WITH POST-CCK GALLBLADDER EJECTION FRACTION: CLINICAL HISTORY: Right upper quadrant abdominal pain. TECHNIQUE: 5.4 mCi Tc-99m IV. Followed by 60 minutes of abdominal imaging. 2.07 mcg Sincalide (CCK) IV, followed by additional 30 minutes of imaging. The patient's medications and allergies were reviewed in electronic medical record and reconciled to the proposed procedure/treatment. RESULTS: There is prompt and homogeneous uptake by the liver, which appears grossly normal in size and shape. Gallbladder activity is visualized by 10 minutes, indicating cystic duct patency. Proximal small bowel activity is noted by 61 minutes, indicating common bile duct patency. After CCK was administered there is minimal emptying from the gallbladder with a calculated gallbladder ejection fraction of 4% (normal >35%). There is no evidence of duodenal gastric reflux. IMPRESSION: DECREASED GALLBLADDER EJECTION FRACTION. Electrician Yard: ARIANNA Transcribe Date/Time: May 10 2019 2:56P Dictated by : DEREK CARR MD This examination was interpreted and the report reviewed and electronically signed by: DEREK CARR MD on May 10 2019 2:57PM EST [id number] [facility] Office Visit (AGPOB1 ) ROGERIO STEPHENS ([id number]) 1960 F Date Time Provider Department 01/03/19 9:00 AM TERRY HERNÁNDEZ AGPOB1 During your visit today, we recorded the following information about you: Respiration Weight Height 17/minute 104.8 kg 1.575 m Terry Hernández MD 01/05/2019 7:46 AM Signed REVIEW OF SYSTEMS: GENERAL: NO FATIGUE OR MALAISE PAIN: Negative for pain, history of chronic pain or current treatment for chronic pain conditions CARDIOVASCULAR: htn MSK: Negative for joint pain, swelling, back pain, muscle pain. SKIN: Negative for lesions, rash, itching, metal sensitivity NEURO: Negative for seizure, trauma, numbness/tingling of extremities. ENDOCRINE: Diabetes Type 2 meds HEMATOLOGY: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 PHYLLIS drain were d/c'd on WednesdaysURGERY 09/14/2017Diagnostic laparoscopy, exploratory laparotomy, total abdominal hysterectomy,bilateral salpingo-oophorectomy, bladder peritonectomy, infra-colicomentectomy, debulking of bulky pelvic nodes with right pelvic lymphadenectomy,debulking of bulky para-aortic nodes, peritoneal biopsiesPrior PHYLLIS drain site was draining clear yellow fluid on Monday when leftoffice.She states since leaving office this drainage has stopped however theunderlying area now feels hard. Denies warmth, erythema.She does report some increased yellow drainage from midline incisional area.Discussed continuing to monitor area and rpt any changesShe has f/u in office next week for wound checkDiscussed putting on oral atb to ensure coverage for any possible evolvingcellulitis, until patient can be seen in officeShe agrees w above plan and will call w any clinical changesAllergies As of Date: 09/29/2017 Noted Allergy ReactionCODEINE 08/11/2017 14 - Other: See Comments Comments: Pseudotumor cerebriaLISINOPRIL 08/11/2017 14 - Other: See Comments Comments: angioedemaDate Reviewed: 09/29/2017Reviewed by: Kevin Madison - Fully AssessedReason for Visit: Refill Request [94]Prescriptions as of 09/29/2017 Sig: ACETAMINOPHEN 500 MG TABLET Take 2 tablets by mouth every* OXYCODONE 5 MG TABLET Take 1 tablet by mouth every * ENOXAPARIN 40 MG/0.4 ML SUBCU* Inject 0.4 mL subcutaneously * DOCUSATE SODIUM 100 MG CAPSULE Take 1 capsule by mouth twice* OXYCODONE 5 MG TABLET Take 1-2 tablets by mouth veronica* DOCUSATE SODIUM 100 MG CAPSULE Take 1 capsule by mouth twice* IBUPROFEN 600 MG TABLET Take 1 tablet by mouth every * SITAGLIPTIN 100 MG TABLET Take 100 mg by mouth once pastora* METOPROLOL SUCCINATE ER 200 M* Take 200 mg by mouth once pastora* VALSARTAN 320 MG-HYDROCHLOROT* Take 1 tablet by mouth once d* METFORMIN ER 500 MG TABLET,EX* Take 2,000 mg by mouth once d*Problem List As Of Date 09/29/2017 Noted Resolved HTN (hypertension) [I10] INVALID FOR* DM (diabetes mellitus) (HCC) [E11.9] INVALID FOR* Obesity [E66.9] INVALID FOR* Endometrial cancer (HCC) [C54.1] INVALID FOR*09/21/2017 Endometrial carcinoma (HCC) [C54.1] INVALID FOR* Obesity, Class III, BMI >= 40 (morbid obesity) *INVALID FOR* Status:Closed by BRENDA HANSON CNP on 10/19/17 [facility] CASE MANAGEMon 09-17-2017 CASE MANAGEM HNO ID: [id number] thor: Radha RileyRn) Rick, RNService: Care ManagementAuthor Type: Registered NurseType: Care Mgt Progress NoteFiled: 09/17/2017 11:28 AMNote Text:CARE MANAGEMENT DISCHARGE NOTESERVICE DATE: 09/17/2017SERVICE TIME: 11:27 AM LOS: 3 daysNeeds Prior to Discharge: Ready for DischargePatient medically cleared for discharge this am. Assessed home no skilledneeds. CM will follow.SIGNATURE: Radha Cabrera RN PATIENT NAME: Rogerio ResendizATE: September 17, 2017 : 11:27 AM PAGER/CONTACT #: [phone] [facility] CNDSon 09-17-2017 CNDS HNO ID: [id number] thor: Lo Lao (Fel)eService: Gynecology OncologyAuthor Type: FellowType: Discharge SummariesFiled: 09/17/2017 7:11 AMNote Text:DISCHARGE NOTESERVICE DAY: September 17, 2017ADMISSION DATE: 09/14/2017DISCHARGE DATE: September 17, 2017CONDITION OF PATIENT ON DISCHARGE: StableDIET: RegularACTIVITY: No baths or showers and nothing in vagina for 6 weeksDISCHARGE MEDICATIONS: Current Discharge Medication ListSTART taking these medicationsacetaminophen (TYLENOL) 1,000 mgTake 1,000 mg by mouth every 6 hours.Qty: 60 tablet Refills: 3enoxaparin (LOVENOX) 40 mgInject 40 mg subcutaneously once daily.Qty: 25 Syringe Refills: 0!! docusate sodium (COLACE) 100 mgTake 100 mg by mouth twice daily.Qty: 60 capsule Refills: 3!! oxyCODONE IR (ROXICODONE) 5-10 mgTake 5-10 mg by mouth every 6 hours as needed for Pain.Qty: 25 tablet Refills: 0ibuprofen (MOTRIN) 600 mgTake 600 mg by mouth every 6 hours as needed.Qty: 60 tablet Refills: 0CONTINUE these medications which have NOT CHANGEDsitaGLIPtin (JANUVIA) 100 mgTake 100 mg by mouth once daily.metoprolol succinate ER (TOPROL XL) 200 mgTake 200 mg by mouth once daily.Refills: 12Valsartan-Hydrochlorothia zide 1 tabletTake 1 tablet by mouth once daily.Refills: 12metFORMIN ER (GLUCOPHAGE XR) 2,000 mgTake 2,000 mg by mouth once daily.Refills: 0Hospital Course: The patient was admitted postoperatively s/p YAJAIRA, BSO,pelvic lymph node dissection and paraortic lymph node dissection,omentectomy, bladder peritonectomy, peritoneal biopsies. The procedure wasuncomplicated, please see the dictated operative note for details. Thepatient had a routine postoperative course and was discharged home onPOD#3 in stable condition. She was ambulating, tolerating a regular dietand her pain was controlled on oral medications. Her physical exam onPOD#1 was unremarkable. She is to resume all home medications and has beenprescribed percocet, motrin and miralax postoperatively. She hasoutpatient follow-up scheduled.Discharge Disposition: Silvia Lucas MDGyn Onc FellowFINAL DIAGNOSIS: FIGO gr 1 endometrial cancer, surg path pendingSIGNATURE: Lo Lucas MD PATIENT NAME: Rogerio Zhu: September 17, 2017 : 7:04 AM TEXT PAGER: [phone] Normal [facility] Glucose POCT (East, [place], [place] A Use Only)on 09-17-2017 Glucose mass conc 201 mg/dL High 65-100 [facility] Comment on above: Performed By: #### G LUPOC ####[facility] [place], [place] [phone] NURSING PROGon 09-17-2017 NURSING PROG HNO ID: [id number] thor: Rashida (Rn) Zeke, RNService: (none)Author Type: Registered NurseType: Nursing Progress NoteFiled: 09/17/2017 12:08 PMNote Text: Nursing Progress NotePatient Name: Rogerio StephensMRN: [id number] Location: [address]/[id number] Daily Note:1130-Lovenox teaching and injection done with patient'sdaughter. Patient also comfortable performing injection also. PHYLLIS teachingreviewed with patient. Patient states she took care of her mother's JPdrain.This note was completed by: Rashida Alanis, RN [facility] PLAN OF CAREon 09-17-2017 PLAN OF CARE HNO ID: [id number] thor: Tg Vidal (Tub Wash Operator)Service: (none)Author Type: TechnicianType: Plan of CareFiled: 09/18/2017 9:42 AMNote Text:RETAIL DEPARTMENT MANAGER BEDSIDE DELIVERY SURVEY1. Patient to use [facility] Bedside Delivery - N/A2. If fax, patient would like us to fax prescriptions to [facility]. Pharmacy: b. Location: c. Phone:3. Insurance card on file - N/A4. Credit card for payment - N/A [facility] PROGRESSon 09-17-2017 PROGRESS HNO ID: [id number] Author: Downtime Note Service: (none) Author Type: (none) Type: Progress Notes Filed: 09/17/2017 4:51 AM Note Text: Epic Scheduled Downtime: 09/17/2017 1:00:00 AM to 09/17/2017 4:30:00 AM [facility] Glucose POCT ([place], [place], [place] A Use Only)on 09-16-2017 Glucose mass conc 270 mg/dL High 65-100 [facility] Comment on above: Performed By: #### G LUPOC ####[place] [address] Glucose mass conc 192 mg/dL [address] Comment on above: Performed By: #### G LUPOC ####[place] [address] Glucose mass conc 189 mg/dL [address] Comment on above: Performed By: #### G LUPOC ####[place] [address] Glucose mass conc 182 mg/dL [address] Comment on above: Performed By: #### G LUPOC ####[place] [address] NURSING PROGon 09-16-2017 NURSING PROG HNO ID: [id number] thor: Sharmin (Rn) Barron, RNService: (none)Author Type: Registered NurseType: Nursing Progress NoteFiled: 09/16/2017 9:50 PMNote Text: Nursing Progress NotePatient Name: Rogerio StephensMRN: [id number] Location: [place] [address]/[id number] Daily Note:2131: Pt AANDO X 3, LS clear, no c/o CP, abd soft AND nontender, BS +, voidsclear yellow, BM today, midline incision- HUI, no edema, no c/o pain, upwith steady gait, call light within reach, will continue to monitor.This note was completed by: Sharmin Mart RN [facility] PROGRESSon 09-16-2017 PROGRESS HNO ID: [id number] thor: Altagracia Haynes: Gynecology OncologyAuthor Type: PhysicianType: Progress NotesFiled: 09/16/2017 2:13 PMNote Text:GYNECOLOGY POST-OP PROGRESS NOTESERVICE DATE: 09/16/17SERVICE TIME: 0645POST OP DAY: #2ASSESSMENT AND PLANTama S Kat is a 57 year old F who is POD # 2 s/p YAJAIRA, BSO, R pelviclymphadenectomy, debulking of L pelvic and para-aortic lymph nodes,debulking of R para-aortic lymph nodes, infracolic omentectomy, bladderperitonectomy, peritoneal biopsies for FIGO 1 endometrial cancer, doingwell.?Twwm-mw-Zxah: Toradol/Motrin, Tylenol, PO oxycodone PRN-IVF: HLIV-Diet: CLD currently, would like to try more solid food. Advance astolerated.-S/p jimenez, voiding-Bowel regimen: Colace, Bypvhyq-Ilao-aoebijy PRN-LLQ PHYLLIS drain with serosanguineous output?HTN-Continue home metoprolol-Holding home Valsartan/HCTZ?T2 DM-Holding home metformin, sitagliptin-SSI #3?Wdx-LFSm-Hodurne this AM-Encourage ambulation-IS use 10x/hour while awake encouraged?SUBJECTIVEPatien t doing very well this AM. Pain is well controlled on Toradol andTylenol. Tolerating clears, no nausea, wants solid food. Voiding, sittingup at bedside. +some flatus yesterday, no BM.OBJECTIVEBP 102/60 Pulse 60 Temp 36.2 ?C (97.2 ?F) (Oral) Resp 18 Ht 160 cm(5' 3) Wt 113.4 kg (250 lb) SpO2 97% BMI 44.29 kg/m2I/O's:Intake/Output Summary (Last 24 hours) at 09/16/17 0711Last data filed at 09/16/17 0630 Gross per 24 hourIntake 752 mlOutput 3770 mlNet -3018 mlJP drain: 770cc/24hr, ssGeneral: Sitting up. NADCardiovascular: RRRPulmonary: Normal inspiratory effortAbdomen: Soft, nontender, non-distended. LLQ PHYLLIS drain with serosanguineousoutputIncisi ons: Clean, dry, intact with alex in place. No drainage orerythema.Extremities: No calf tendernessLabs:CBC, Coags, BMP, Mg, PhosRecent Labs 431WBC 10.14HB 9.3*HCT 30.4*PLT 292NA 137K 4.4CHLOR 99CO2 26BUN 26*CREAT 0.84GLUC 155*CA 8.5Lo Lucas MDGynecologic Oncology FellowCCF Ahvin #[id number] ONC STAFF:Patient was seen and examined by me. All olivier elements of theresident/fellow's history and physical were confirmed. I agree with theabove documented findings and plan of care as outlined by theresident/fellow.POD #2Doing well. No complaintsFeels hugryVoiding, passing some flatusPlan:- advance diet today- encourage ambulation- possible dismissal home tomorrowAltagracia Diaz MD Normal [facility] Basic Metabolic Panlon 09-15 Anion gap 12 mmol/L Normal 9-18 [facility] Comment on above: Performed By: #### C ONABO ####[place] [phone] Calcium 8.5 mg/dL Normal 8.5-10.5 [facility] Comment on above: Performed By: #### C ONABO ####[place] [phone] Chloride 99 mmol/L Normal 98-110 [facility] Comment on above: Performed By: #### C ONABO ####[place] [phone] CO2 26 mmol/L Normal 23-32 [facility] Comment on above: Performed By: #### C ONABO ####[place] [phone] Creatinine 0.84 mg/dL Normal 0.70-1.40 [facility] Comment on above: Performed By: #### C ONABO ####[place] [phone] eGFR (non-black) mL/min/{1.73_m2} Normal >60 [facility] Comment on above: Performed By: #### C ONABO ####[place] [address] [place] [phone] Glucose mass conc 155 mg/dL High 65-100 [facility] Comment on above: Performed By: #### C ONABO ####[place] [id number] [phone] Potassium molar conc 4.4 mmol/L Normal 3.5-5.0 [facility] Comment on above: Performed By: #### C ONABO ####[place] [id number] [place] [phone] Sodium 137 mmol/L Normal 132-148 [facility] Comment on above: Performed By: #### C ONABO ####[place] [id number] [place] [phone] Urea nitrogen 26 mg/dL High 8-25 [facility] Comment on above: Performed By: #### C ONABO ####[phone] CASE MANAGEMon 09-15-2017 CASE MANAGEM HNO ID: [id number] thor: Meghana Perez (Sw)ervice: Care ManagementAuthor Type: Social WorkerType: Care Mgt Progress NoteFiled: 09/15/2017 11:08 AMNote Text:CARE MANAGEMENT PROGRESS NOTESERVICE DATE: 09/15/2017SERVICE TIME: 11:07 AM LOS: 1 dayAdvanced Directives POA and Living WillCM completed POA and living will paperwork with patient. Provided a copyand faxed copy to records.SIGNATURE: PRICILLA Porras PATIENT NAME: Rogerio Zhu: September 15, 2017 : 11:07 AM PAGER/CONTACT #: [phone] [facility] CASE MGT INIT ASSES 2016 CASE MGT INIT ASS HNO ID: [id number] thor: Meghana (Sw) MacLachlanService: Care ManagementAuthor Type: Social WorkerType: Care Mgt Initial AssessmentFiled: 09/15/2017 11:07 AMNote Text:CARE MANAGEMENT: ASSESSMENT AND DISCHARGE PLANSERVICE DATE: 09/15/2017SERVICE TIME: 11:05 AMPRIMARY CARE PHYSICIAN:ANTIONETTE Santiagohone: [phone] STATUS: InpatientPOTENTIAL DISCHARGE PLANSHomePatient/Representa tive Stated Goals: Praying that I can continue tofunction on my own and go back to workNeeds Prior to Discharge: To Be DeterminedHealth Insurance: [facility] Arrangement: HomeLives With: DaughterFinancial Resources: Employed: [employer]Primary Contact:Extended Emergency Contact InformationPrimary Emergency Contact: Samantha StephensAddress: [address] [place] [id number] Mrraghjr: ChildSupportive: YesOther Important Patient Contacts: NoneCAREGIVER ASSESSMENT:Caregiver is ready, willing and able to meet the patient's needs asrecommended by the inter-professional team? No Caregiver NeededPatient's transition needs and plan for meeting these needs: HomeDoes the patient have an acute stroke diagnosis, or has the patient had astroke during this admission? NoADVANCE DIRECTIVES:Does Patient Have Advance Directives? No, copies givenDoes Patient Have Concerns About Advance Directives? NoPRIOR TO ADMISSION:Baseline Mental Status: Alert AND Oriented, Person, Place , Time andSituationFunctional Status: IndependentDoes Patient Currently Receive Any Community Services or Home Care? NoneEquipment Prior to Admission: NoneHEALTH:Health Issues Impacting Discharge Plan: Chronic Endometrial CAHealth Literacy Issues: NoPSYCHOSOCIAL:Is the Patient Psychosocially Complex? NoFamily/Patient Understanding of Illness/Diagnosis: YesMedication Adherence:Do you forget to take your medications? I do not forget to take mymedicationHave you ever stopped taking medications because you felt worse? None ofthe timeHave you ever taken less of your medication than what was prescribed byyour doctor? None of the timeIn the past 3 months, have you had issues obtaining one or more of yourmedications? None of the timeAre you interested in bedside delivery of your medications? NoFood Concerns:In the Last Month, Have You had Trouble Getting Food? No trouble gettingfoodDuring the Last Month, Have You Worried Whether Your Food Would Run OutBefore You Had Enough Money to Buy More? NoPsychosocial Needs: NoneUTILIZATION:Last Admission Date: noneIs this Within the Past 30 days? NoHas the Patient Been in a Fci Facility in the Past 30 days? NoFREEDOM OF CHOICE EXPLAINED:N/NEETA COMMUNICATION:TBD at d/[facility] met with patient ad patient's daughter, Jhonny, at the bedside. Patientlives in a house with her daughter. Patient is independent of ADL's,drives and works. No anticipated skilled needs at this time.SIGNATURE: PRICILLA Porras PATIENT NAME: Rogerio Zhu: September 15, 2017 : 11:05 AM PAGER/CONTACT #: [phone] Normal [facility] CBCon 09-15-2017 Erythrocyte distribution width Auto Ratio (RBC) 14.4 % Normal 11.5-15.0 [facility] Comment on above: Performed By: #### C ONABO ####[place] [phone] Erythrocytes (RBC) 3.64 10*6/uL Low 3.90-5.20 [facility] Comment on above: Performed By: #### C ONABO ####[place] [phone] Hematocrit (HCT) 30.4 % Low 36.0-46.0 [facility] Comment on above: Performed By: #### C ONABO ####[phone] Hemoglobin mass conc (Bld) 9.3 g/dL Low 11.5-15.5 [facility] Comment on above: Performed By: #### C ONABO ####[place] [phone] MCH 25.5 pG Low 26.0-34.0 [facility] Comment on above: Performed By: #### C ONABO ####[place] [phone] MCHC mass conc (RBC) 30.6 g/dL Normal 30.5-36.0 [facility] Comment on above: Performed By: #### C ONABO ####[place] [phone] MCV 83.5 fL Normal 80.0-100.0 [facility] Comment on above: Performed By: #### C ONABO ####[place] [phone] Platelet mean volume (PMV) 9.9 fL Normal 9.0-12.7 [facility] Comment on above: Performed By: #### C ONABO ####[place] [phone] Platelets 292 10*3/uL Normal 150-400 [facility] Comment on above: Performed By: #### C ONABO ####[place] [phone] WBC (Leukocytes) 10.14 10*3/uL Normal 3.70-11.00 [facility] Comment on above: Performed By: #### C ONABO ####[place] [phone] Glucose POCT (East, [place], [place] A Use Only)on 09-15-2017 Glucose mass conc 184 mg/dL High [address] [place] [address] Comment on above: Performed By: #### G LUPOC ####[place] [phone] Glucose mass conc 147 mg/dL High [address] Comment on above: Performed By: #### G LUPOC ####[place] [phone] Glucose mass conc 178 mg/dL High [address] [place] [address] Comment on above: Performed By: #### G LUPOC ####[address] [phone] Glucose mass conc 156 mg/dL High 65-[address] [facility] Comment on above: Performed By: #### C ONABO ####[address] [phone] NURSING PROGon 09-15-2017 NURSING PROG HNO ID: [id number] thor: Cristine (Rn) Jose Luis Mccauleyice: (none)Author Type: (none)Type: Nursing Progress NoteFiled: 09/15/2017 4:04 PMNote Text: Nursing Progress NotePatient Name: Rogerio StephensMRN: [id number] Location: [address]/QS-[id number] Daily Note:0900: Removed patient's jimenez. Instructed patient to call for assistancebefore voiding.1020: Patient voided 100 mL of blood tinged urine.1459: Patient averaging 45 mL/hr of serosanguinous drainage from PHYLLIS drain.Will notify .1600: Dr. Madison aware. No interventions given at this time.This note was completed by: Cristine Mccauley RN [facility] OPERATIVE NOon 09-15-2017 OPERATIVE NO HNO ID: [id number] thor: Kevin Valdes: Gynecology OncologyAuthor Type: PhysicianType: Operative ReportFiled: 09/16/2017 11:03 PMNote Text:OPERATIVE/PROCEDURE REPORTLOG ID: [id number]/Procedure Date: 09/14/2017Incision/Procedure Start Time: 8:28 AMIncision Close/Procedure End Time: 11:55 AMSurgeon(s)/Proceduralist( s) and Head Of Acquisitions(s):Surgeon(s) and Role: * Kevin Madison - Primary * Helen Mari (Fel) - Fellow * Alecia Cramer - Resident - AssistingNo Additional StaffProcedure(s):Diagnosti c laparoscopy, exploratory laparotomy, total abdominalhysterectomy, bilateral salpingo-oophorectomy, bladder peritonectomy,infra-colic omentectomy, debulking of bulky pelvic nodes with right pelviclymphadenectomy, debulking of bulky para-aortic nodes, peritoneal biopsiesAnesthesia: GeneralOperative Findings: Multiple miliary peritoneal implants on the abdominalperitoneal wall and bladder peritoneum suspicious for carcinomatosis butfrozen was negative. Bulky pelvic and para-aortic nodes. Frozen c/w grade1 disease, deeply invasive tumor with gissel disease. Optimal debulking andres gross residual disease.Procedure Details:The patient was taken to the operating room and was placed on theoperating room table, general anesthesia with endotracheal intubation wasinitiated, and oral gastric tube was placed, she was then placed in dorsallithotomy position, attention was made to avoid any pressure injuries, Ievaluated the ankle and hip joints bilaterally after positioning the lowerextremity, there was adequate mobility of the joints and no evidence ofpressure on the femoral or common peroneal nerves. She was then preppedand draped in a normal sterile fashion and a jimenez catheter was inserted.Exam under anesthesia was performed which showed normal uterus and cervixand no pelvic mass was felt. A V-care uterine manipulator was placed . Adelina proceeded with placement of trochars. The first trocar was placed inthe left upper quadrant region and it was 5mm. Intraperitoneal cavity wasinitially insufflated with CO2 gas using the Veress needle. Then thetrocar was inserted into the peritoneal cavity. Subsequently we placed two5 mm trochars one at each lower quadrants and another one insupra-umbilical region. Intraperitoneal cavity was inspected carefully,multiple peritoneal implants on the anterior abdominal wall and bladderperitoneum were noted and was suspicious for carcinomatosis. Given thedecision was made to proceed with exploratory laparotomy. A midline skinincision was performed using scalpel extending 2-3 cm above the umbilicus.The underlying tissue was incised with bovie, the fascia was incised andthe peritoneum was entered. Peritoneal cavity was inspected above. Thenthe round ligament was grasped cauterized and cut, the peritoneum lateralto the infundibulopelvic ligament was then incised cephalad. The ureterwas identified in the retroperitoneal space, Similar procedure was done onthe opposite side. Then a window was made in the peritoneum below the leftgonadal vessels and the gonadal vessels were ligated and transected.Similar procedure performed on the opposite side. Then the posteriorperitoneum was incised down sibley to the level of uterosacral ligament.Bladder flap was developed sharply, the uterine vessels were skeletonized,ligasure device was used to secure cauterize and transect the uterinevessels at the level of cervico-uterine junction. Then colpotomy wasperformed and the vaginal cuff was closed with 0 vicryl suture in aninterrupted fashion.The vagina was closed with 0 vicryl suture in an interrupted fashion.Hemostasis was excellent.We then proceeded to right pelvic lymphadenectomy, the pararectal andparavesical spaces developed the lymphatic chain along the external iliacvessels were stripped off. Then the gissel tissue where from thepsoas muscle medially, the obtorator nerve was identified and waspreserved carefully. The gissel bundle at the obturator fossa were removed.Then the lymphatics lateral to the common iliac vein and artery werestripped off of the vessels and the psoas muscle. This dissection wasextended up to the bifurcation of the aorta and inferior vena cava. Alsolymphatic chains along the internal iliac vessels were stripped and sentto pathology. The distal extent of dissection was to the level of deepcircumflex iliac vessel. Similar procedure was performed bilaterally.Ureters were inspected carefully and preserved intact. Bulky nodes on theright side and left side noted and all were resected with bovie with goodhemostasis.?Then we proceeded to right periaortic lymphadenectomy. The cecum andascending colon were mobilized, the ureter was retracted laterally. Thenthe lymphatic bundle lateral to the inferior vena cava was removed up tothe level of the renal vein. The lymphatics between the aorta and venacava were also removed. Large bulky nodes were noted and were resectedwith the bovie, hemostasis was excellent. On the left paraaortic area, nobulky nodes were noted, one questionable node removed. Hemostasis wasexcellent. The infra-colic omentum was inspected and resected usingligasure from the hepatic and splenic flexures. Peritoneal biopsies wereobtained.Then the pelvic cavity was irrigated copiously and hemostasis was noted jame excellent. 19 F pelvic drain was placed. The fascia was closed using #1PDS in a running fashion from both sides, the subcutaneous area wasirragated and was noted to be hemostatic, the skin was approximated usingstaples.Trochars were removed. Skin of laparoscopic sites were reapproximated . Atthe end of the operation sponge and needle counts and instrument countswere correct x2. The patient tolerated the procedure well and wastransferred to the recovery room after extubation.Pre-Op/Pre-Proce dure Diagnosis: Endometrial cancerPost-Op/Post-Procedur e Diagnosis: SameEstimated Blood Loss: mlsSpecimens:Uterus/tubes and ovariesOmentumPeritoneal biopsiesRight pelvic nodesRight para-aortic nodesLeft pelvic nodesRight para-aortic nodesImplantable Devices: NoneDrains: Pelvic drainComplications: NoneI performed the procedure with assistance.SIGNATURE: Kevin Madison MD PATIENT NAME: Rogerio ResendizATE: September 16, 2017 : 10:01 PM PAGER/CONTACT #: [facility] PROGRESSon 09-15-2017 PROGRESS HNO ID: [id number] thor: Altagracia Mayere: GynecologyAuthor Type: PhysicianType: Progress NotesFiled: 09/15/2017 6:22 PMNote Text:GYNECOLOGY POST-OP PROGRESS NOTESERVICE DATE: 09/15/2017SERVICE TIME: 8:19 AMPOST OP DAY: # 1ASSESSMENT AND PLANTamara Paul Stephens is a 57 year old F who is POD # 1 s/p YAJAIRA, BSO, R pelviclymphadenectomy, debulking of L pelvic and para-aortic lymph nodes,debulking of R para-aortic lymph nodes, infracolic omentectomy, bladderperitonectomy, peritoneal biopsies for FIGO 1 endometrial cancer. Doingwell.?Sbkl-yy-Ggef: Toradol/Motrin, Tylenol, Dilaudid TEST PREPARATION TUTOR for pain. Discontinue PCAtoday and transition to PO oxycodone-IVF: HLIV-Diet: CLD currently. Advance as tolerated.-Jimenez catheter in place. Adequate UOP. Discontinue jimenez today-Bowel regimen: Colace, Zgsnlgt-Fhsv-obnnjau PRN-LLQ PHYLLIS drain with serosanguineous output-Labs: AM labs reviewed and appropriate?HTN-Continue home metoprolol-Holding home Valsartan/HCTZ?T2 DM-Holding home metformin, sitagliptin-SSI #2. Some blood sugars > 200. Will increase to SSI #3?Nla-EAUy-Lxerqzt this AM-Encourage ambulation-IS use 10x/hour while awake encouraged?SUBJECTIVEPatien t complains of nothing. Pain is well controlled on Toradol andTylenol. She has not been requiring the TEST PREPARATION TUTOR. No n/v. Tolerating clears.Jimenez is in place. She stood up, but has not yet ambulated. No chest painor SOB.OBJECTIVEVital Signs: Patient Vitals for the past 24 hrs: BP Temp Temp src Pulse Resp FnP55609/15/17 0500 109/55 36.7 ?C (98 ?F) Oral 69 16 94 %09/15/17 0000 106/51 36.8 ?C (98.2 ?F) Oral 72 16 94 %09/14/17 2110 112/60 - - - - -09/14/17 2000 (!) 94/42 36.7 ?C (98 ?F) Oral 90 16 95 %09/14/17 1530 (!) 100/49 36.4 ?C (97.5 ?F) Oral 78 16 100 %09/14/17 1500 108/65 - - 74 16 100 %09/14/17 1400 96/60 36.6 ?C (97.9 ?F) - 71 16 100 %09/14/17 1345 128/79 - - 65 15 100 %09/14/17 1330 128/78 - - 77 14 100 %09/14/17 1300 114/93 36.5 ?C (97.7 ?F) - 75 14 100 %09/14/17 1231 127/81 - - 76 12 100 %09/14/17 1230 132/86 - - 76 14 100 %09/14/17 1222 142/86 36.3 ?C (97.3 ?F) - 77 15 100 %I/O's:Intake/Output Summary (Last 24 hours) at 09/15/17 0819Last data filed at 09/15/17 0611 Gross per 24 hourIntake 1458 mlOutput 1265 mlNet 193 mlGeneral: Resting comfortably in bed. NADCardiovascular: RRRPulmonary: Normal inspiratory effortAbdomen: Soft, appropriately tender, non-distended. LLQ PHYLLIS drain withserosanguineous outputIncisions: Clean, dry, intact with bandage in place. No drainage orerythema.Extremities: No calf tenderness, no lower extremity edema, +SCDsLabs:Diagnostic tests reviewed for today's visit:Component Latest Ref Rng AND Units 08/28/2017 09/15/2017WBC 3.70 - 11.00 k/uL 8.61 10.14RBC 3.90 - 5.20 m/uL 4.17 3.64 (L)Hemoglobin 11.5 - 15.5 g/dL 10.9 (L) 9.3 (L)Hematocrit 36.0 - 46.0 % 36.1 30.4 (L)MCV 80.0 - 100.0 fL 86.6 83.5MCH 26.0 - 34.0 pG 26.1 25.5 (L)MCHC 30.5 - 36.0 g/dL 30.2 (L) 30.6RDW-CV 11.5 - 15.0 % 14.3 14.4Platelet Count 150 - 400 k/uL 325 292MPV 9.0 - 12.7 fL 10.8 9.9Neut% % 61.0Abs Neut (ANC) 1.45 - 7.50 k/uL 5.26Lymph% % 25.7Abs Lymph 1.00 - 4.00 k/uL 2.21Mono% % 9.4Abs [place] <0.87 k/uL 0.81Eosin% % 3.4Abs Eosin <0.46 k/uL 0.29Baso% % 0.5Abs Baso <0.11 k/uL 0.04Nucleated Reds 0 /100 WBC 0.0Absolute nRBC <0.01 k/uL <0.01Diff Type Auto DiffProtein, Total 6.3 - 8.0 g/dL 7.0Albumin 3.9 - 4.9 g/dL 3.8 (L)Calcium 8.5 - 10.5 mg/dL 9.5 8.5Bilirubin, Total 0.2 - 1.3 mg/dL 0.3Alkaline Phosphatase 32 - 117 U/L 80AST 13 - 35 U/L 21Glucose 65 - 100 mg/dL 125 (H) 155 (H)BUN 8 - 25 mg/dL 14 26 (H)Creatinine 0.70 - 1.40 mg/dL 0.58 0.84Sodium 132 - 148 mmol/L 139 137Potassium 3.5 - 5.0 mmol/L 4.7 4.4Chloride 98 - 110 mmol/L 98 99CO2 23 - 32 mmol/L 27 26Anion Gap 9 - 18 mmol/L 14 12ALT 7 - 38 U/L 16eGFR- >60 >60 >60eGFR-All Other Races >60 . >60 >60Current hospital medications:metoprolol succinate ER 200 mg tab(s) (TOPROL XL) 200 mg ORAL DAILYlactated ringers infusion 100 mL/hr INTRAVENOUS CONTINUOUS0.9% NaCl 2-10 mL 2-10 mL INTRAVENOUS q 12 Hondansetron orally disintegrating 4 mg tab(s) (ZOFRAN ODT) 4 mg ORAL q 6 HPRNondansetron (PF) 4 mg injection (ZOFRAN) 4 mg INTRAVENOUS q 6 H PRNmetoclopramide HCl 10 mg tab(s) (REGLAN) 10 mg ORAL q 6 H PRNmetoclopramide HCl 10 mg injection (REGLAN) 10 mg INTRAVENOUS q 6 H PRNdiphenhydrAMINE 25 mg injection (BENADRYL) 25 mg INTRAVENOUS HS PRNdocusate sodium 100 mg cap(s) (COLACE) 100 mg ORAL BIDpolyethylene glycol 3350 17 g packet (MIRALAX, GLYCOLAX) 17 g ORAL DAILYketorolac 30 mg injection (TORADOL) 30 mg INTRAVENOUS q 6 Hibuprofen (MOTRIN) tab(s) 600 mg 600 mg ORAL q 6 Hfamotidine 20 mg tab(s) (PEPCID) 20 mg ORAL BIDenoxaparin 40 mg injection (LOVENOX) 40 mg SUBCUTANEOUS DAILYdextrose 40 % 15 g (INSTA-GLUCOSE) 15 g ORAL PRNglucagon 1 mg injection (GLUCAGEN) 1 mg INTRAMUSCULAR PRNdextrose 50% in water 25 mL syringe 12.5 g INTRAVENOUS PRNinsulin lispro injection (rapid acting) (HumaLOG) SUBCUTANEOUS w MEALSinsulin lispro injection (rapid acting) (HumaLOG) SUBCUTANEOUS AT BEDTIMEacetaminophen 1,000 mg tab(s) (TYLENOL) 1,000 mg ORAL q 6 Hscopolamine 1 mg over 3 days 1 Patch (TRANSDERM-SCOP) 1 Patch TRANSDERMAL(PACU) PRNscopolamine - VERIFY patch OTHER q 8 Hscopolamine - REMOVE PATCH OTHER ONCEHYDROmorphone 0.5 mg/mL TEST PREPARATION TUTOR CLINICIAN DOSE 0.2 mg 0.2 mg INTRAVENOUS q 6 HPRNHYDROmorphone TEST PREPARATION TUTOR 0.5 mg/mL in NaCl 0.9% 100 mL INTRAVENOUS CONTINUOUSSIGNATURE: Alecia Cramer MD PATIENT NAME: Rogerio SnowleDATE: September 15, 2017 : 8:19 AM PAGER: [phone] ONC STAFF:Patient was seen and examined by me. All olivier elements of theresident/fellow's history and physical were confirmed. I agree with theabove documented findings and plan of care as outlined by theresident/fellow.POD #1 doing well at this timeRoutine postop careAltagracia Diaz MD [facility] ANES [place] 09-14-2017 ANES POST HNO ID: [id number] thor: Marylin Simms) [facility] Centerervice: AnesthesiologyAuthor Type: AnesthesiologistType: Anesthesia PostOpFiled: 09/14/2017 2:35 PMNote Text:POST ANESTHESIA EVALUATION NOTESERVICE DATE: 09/14/2017SERVICE TIME: 2:35 PMDOB: 1960Vitals: 09/14/1712Temp: 36.4 ?C (97.5 ?F) 36.3 ?C (97.3 ?F) 36.5 ?C (97.7 ?F) 36.6 ?C (97.9?F) 09/14/1713BP: 114/93 128/78 128/79 96/60 09/14/1713Pulse: 75 77 65 71 09/14/1713Resp: 14 14 15 16 300 330 09/14/1714SpO2: 100% 100% 100% 100%Validated Vital Signs: YesPOST ANES STATUS: No apparent anesthetic complications. The patient isappropriately hydrated with stable respiratory and cardiovascular status.Patient has safe and adequate airway control. The patient has appropriatepain relief and no significant post operative nausea or vomiting. Thepatient has achieved baseline mental status.Further assessment by Anesthesia Service: NoneOther Remarks:SIGNATURE: Marylin Langston MD PATIENT NAME: Rogerio SnowleDATE: September 14, 2017 : 2:35 PM PAGER/CONTACT #: [facility] ANES PREOPon 09-14-2017 ANES PREOP HNO ID: [id number] thor: Marylin Simms) Jolynnervice: AnesthesiologyAuthor Type: AnesthesiologistType: Anesthesia PreOpFiled: 09/14/2017 6:36 AMNote Text:REGIONAL ANESTHESIOLOGY DAY OF SURGERY NOTEPATIENT NAME: Rogerio StephensMRN: [id number]: 2Procedure(s) (LRB):LAPAROSCOPIC HYSTERECTOMY TOTAL FOR UTERUS 250 G OR LESS W/REMOVAL TUBE(S)AND/OR OVARY(S) (Bilateral)Surgeon(s):Katja MadisonEstimated body mass index is 45.24 kg/(m2) as calculated from thefollowing: Height as of 08/28/17: 160 cm (5' 3). Weight as of 08/28/17: 115.8 kg (255 lb 6.4 oz).ASA Class: 3Adequate NPO status: YesAllergies:ALLERGIESAller gen Reactions- Codeine Other: See Comments Pseudotumor cerebria- Lisinopril Other: See Comments angioedemaAirway Assessment: MP 2; Neck ROM: Full ROM without neurologic symptoms;Airway Evaluation: Small Mouth OpeningDentition: Teeth intactdenies any loose one discoloredSymptoms of Sleep Apnea: DeniesMost recent lab results:Hemoglobin 10.9 08/28/2017Hematocrit 36.1 08/28/2017Potassium 4.7 08/28/2017Platelet Count 325 08/28/2017Creatinine 0.58 08/28/2017EKG:normal EKG, normal sinus rhythmVitals: [id number]: 108/62Pulse: 72Resp: 17Temp: 36.4 ?C (97.5 ?F)TempSrc: Temporal ArterySpO2: 96%Previous Anesthesia: No history of adverse event Family history ofanesthetic problems: NoneAdditional Physical Exam:Lungs: Lungs clear to auscultation. Good diaphragmatic excursion.Cardiac: Normal S1 and S2; no rubs, no murmurs and no gallopsAdditional pertinent findings: N/AOther Medical Problems/ Important Considerations:Does not exercise.Chronic Beta Jessica medication administered within 24 hours: YesAnesthetic risks, benefits, alternatives, personnel and consent discussed:YesPatient agrees to proceed: YesBlood Products: Not anticipated for this procedureAnesthetic Plan: General ETT; Standard ASA Monitors- bs 177 this amPain Management Plan: Parenteral or OralEPIC Chart ReviewACTIVE PROBLEM LISTHtn (Hypertension)Dm (Diabetes Mellitus) (Hcc)ObesityEndometrial Cancer (Hcc)PAST MEDICAL HISTORYDiagnosis Date- DM (diabetes mellitus) (HCC)- Endometrial cancer (HCC) 08/28/2017- HTN (hypertension)- ObesityPAST SURGICAL HISTORYProcedure Laterality Date- CATARACT EXTRACTION HX Bilateral 2008- TONSILLECTOMY AND ADENOIDECTOMY HXFAMILY HISTORYProblem Relation Age of Onset- Breast Cancer Mother- Diabetes Father insulin dependent- Skin Cancer FatherSocial History:Social HistorySubstance Use Topics- Smoking status: Former Smoker Types: Cigarettes Quit date: 08/11/2009- Smokeless tobacco: Never Used Comment: smoked for 19 years on an off- Alcohol use NoNo current facility-administered medications on file prior to encounter.Current Outpatient Prescriptions on File Prior to Encounter:metoprolol succinate ER (TOPROL XL) 200 mg 24 hr tablet Take 200 mg bymouth once daily.Valsartan-Hydrochloro thiazide 320-25 mg per tablet Take 1 tablet by mouthonce daily.metFORMIN ER (GLUCOPHAGE XR) 500 mg 24 hr tablet Take 2,000 mg by mouthonce daily.Inpatient medications reviewed in [facility].I have interviewed and examined the patient. I have reviewed the medicalrecord and/or the pre-anesthesia evaluation, pertinent labs, and testresults.Significant changes in the patient's condition since the History andPhysical, not otherwise documented in primary service progress notes: NoThis contains updated information obtained within 48 hours ofSurgery/Procedure.SIGNATU RE: Marylin Langston MD PATIENT NAME: Rogerio ResendizATE: September 14, 2017 : 6:35 AM PAGER/CONTACT #: [facility] BRIEF OP NOTon 09-14-2017 BRIEF OP NOT HNO ID: [id number] thor: Alecia Campoverdeervice: GynecologyAuthor Type: ResidentType: Brief Op NoteFiled: 09/14/2017 12:14 PMNote Text:BRIEF OPERATIVE / PROCEDURE NOTELOG ID: [id number]/Procedure Date: 09/14/2017Incision/Procedure Start Time: 8:28 AMIncision Close/Procedure End Time: 11:55 AMSurgeon(s)/Proceduralist( s) and Head Of Acquisitions(s):Surgeon(s) and Role: * Kevin Madison - Primary * Helen Mari (Fel) - Fellow * Alecia Cramer - Resident - AssistingNo Additional StaffProcedure(s): Diagnostic laparoscopy, total abdominal hysterectomy,bilateral salpingo-oophorectomy, R pelvic lymphadenectomy, debulking of Lpelvic and para-aortic lymph noes, debulking of R para-aortic lymph nodes,infracolic omentectomy, bladder peritonectomy, peritoneal biopsiesAnesthesia: GeneralFindings:-Normal external genitalia-Enlarged 16-week, mobile uterus-Complex L ovarian mass-Vesicular lesions on bladder 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-En larged pelvic nodes and para-aortic nodes bilaterally-RUQ normal to palpation-Frozen section: bladder peritoneum benign, uterus: deeply invasive FIGO 1endometrial cancer, R para-aortic nodes: positive for malignancyEstimated Blood Loss: 300 mlsUOP: 325 ccIVF: 3500 mLSpecimens:Uterus, cervix, bilateral fallopian tubes, bilateral ovaries, bladderperitoneum, infracolic omentum, bilateral pelvic and para-aortic nodes,bilateral pelvic peritoneal biopsies, mesenteric peritoneumComplications: NonePre-Op/Pre-Procedure Diagnosis: FIGO 1 endometrial cancerPost-Op/Post-Procedur e Diagnosis: Malignant neoplasm of body of uterus,unspecified site (HCC) [C54.9]SIGNATURE: Alecia Cramer MD PATIENT NAME: Rogerio ResendizATE: September 14, 2017 : 12:05 PM PAGER/CONTACT #: [phone] Normal [facility] Glucose POCT ([place], [place], [place] A Use Only)on 09-14-2017 Glucose mass conc 186 mg/dL High 65-100 [facility] Comment on above: Performed By: #### C ONABO ####[place] [address] Glucose mass conc 222 mg/dL High 65-100 [facility] Comment on above: Performed By: #### G LUPOC ####[place] [address] Glucose mass conc 251 mg/dL High 65-100 [facility] Comment on above: Performed By: #### G LUPOC ####[place] [address] Glucose mass conc 177 mg/dL High 65-100 [facility] Comment on above: Performed By: #### G LUPOC ####[place] [address] HISTORY PHYSICALon HISTORY PHYSICAL HNO ID: [id number] thor: Alecia WeissnaService: GynecologyAuthor Type: ResidentType: HANDPFiled: 09/14/2017 7:18 AMNote Text:UPDATED HISTORY AND PHYSICAL EXAMINATIONSERVICE DATE: 09/14/2017SERVICE TIME: 7:18 AMPHYSICAL EXAM MUST BE COMPLETED ON ADMISSIONThe History and Physical (completed in the past 30 days) has been reviewedand the patient has been examined. The contents accurately reflect thepatient's condition with the following additions or revisions since theHANDP was completed.Examination indicates no changes.Provisional Diagnosis/Treatment Plan: Procedure(s) (LRB):LAPAROSCOPIC HYSTERECTOMY TOTAL FOR UTERUS 250 G OR LESS W/REMOVAL TUBE(S)AND/OR OVARY(S) (Bilateral)This HANDP can be found in the Electronic Medical Record dated 08/30/2017.SIGNATURE: Alecia Cramer MD PATIENT NAME: Rogerio ResendizATE: September 14, 2017 : 7:18 AM PAGER: [phone] [facility] NURSING PROGon 09-14-2017 NURSING PROG HNO ID: [id number] thor: Cristine (Rn) Emerson Mccauley: (none)Author Type: (none)Type: Nursing Progress NoteFiled: 09/14/2017 4:08 PMNote Text: Nursing Progress NotePatient Name: Rogerio StephensMRN: [id number] Location: [address]-[id number]-11 Transfer Note:Patient transferred into room/unit 102/PK1A. Actions taken: Patientoriented to room and safety precautions. No further actions taken at thistime. Will continue to monitor and check with patient.This note was completed by: Cristine Mccauley RN [facility] NURSING PROG HNO ID: [id number] thor: Johanna iRleyRn) Emerson Rogers: (none)Author Type: Registered NurseType: Nursing Progress NoteFiled: 09/14/2017 3:00 PMNote Text:1240 Pt more awake, OA D/C'd. HOB elevated to 60. Pt unaware of NA inplace. No change to abd or drsg. Pt easily drifts back to reg. snoringresp's. Lungs CTA. VSS. EtCO2 now 39-41.1300 Pt awake, NA D/C'd. Pt denied any pain, easily back to [id number] Aroused pt again, she sat higher up in bed per her request. SFMchanged to NC 4 lpm . [place] [id number] 2nd call to pharmacy for pt's sliding scale [id number] Daughter in to visit shortly, pt hardly able to keep her eyes open.New orders placed for [id number] Still awaiting TEST PREPARATION TUTOR and pump. Pt remains lethargic, but arouses . [facility] PROGRESSon 09-14-2017 PROGRESS HNO ID: [id number] thor: Alecia (Res) LlarenaService: GynecologyAuthor Type: ResidentType: Progress NotesFiled: 09/14/2017 5:06 PMNote Text:GYNECOLOGY POST-OP PROGRESS NOTESERVICE DATE: 09/14/2017SERVICE TIME: 4:43 PMPOST OP DAY: # 0ASSESSMENT AND PLANTamara S Kat is a 57 year old F who is POD # 0 s/p YAJAIRA, BSO, R pelviclymphadenectomy, debulking of L pelvic and para-aortic lymph nodes,debulking of R para-aortic lymph nodes, infracolic omentectomy, bladderperitonectomy, peritoneal biopsies for FIGO 1 endometrial cancer.Crxz-gq-Lmzu: Toradol/Motrin, Tylenol, Dilaudid TEST PREPARATION TUTOR for pain-IVF: LR @ 100 cc/hr-Diet: CLD-Jimenez catheter in place. Adequate UOP. 175 cc recorded and additional 200cc in jimenez bag.-Bowel regimen: Colace, Cxzniak-Jadz-ynsinjw PRN-LLQ PHYLLIS drain with serosanguineous output-Labs: AM labs pendingHTN-Continue home metoprolol-Holding home Valsartan/HCTZT2 DM-Holding home metformin, sitagliptin-SSI #2Mac-MMVv-Mcrojtc POD #1-Encourage ambulation-IS use 10x/hour while awake encouragedSUBJECTIVEPatient complains of nothing. Pain well controlled. Not requiring PCAbutton. No n/v. Tolerating ice chips. She has not yet ambulated. No SOB orchest pain. Jimenez catheter is in place.OBJECTIVEVital Signs: Patient Vitals for the past 24 hrs: BP Temp Temp src Pulse Resp [id number]/14/17 1530 (!) 100/49 36.4 ?C (97.5 ?F) Oral 78 16 100 %09/14/17 1500 108/65 - - 74 16 100 %09/14/17 1400 96/60 36.6 ?C (97.9 ?F) - 71 16 100 %09/14/17 1345 128/79 - - 65 15 100 %09/14/17 1330 128/78 - - 77 14 100 %09/14/17 1300 114/93 36.5 ?C (97.7 ?F) - 75 14 100 %09/14/17 1231 127/81 - - 76 12 100 %09/14/17 1230 132/86 - - 76 14 100 %09/14/17 1222 142/86 36.3 ?C (97.3 ?F) - 77 15 100 %09/14/17 0626 108/62 36.4 ?C (97.5 ?F) Temporal Art 72 17 96 %I/O's:Intake/Output Summary (Last 24 hours) at 09/14/17 1643Last data filed at 09/14/17 1602 Gross per 24 hourIntake 30 mlOutput 395 mlNet -365 mlGeneral: Resting comfortably in bed. NADCardiovascular: RRRPulmonary: Normal inspiratory effortAbdomen: Soft, appropriately tender, non-distended.Incisions: Midline incision clean, dry, intact with bandage in place. Nodrainage or erythema.Extremities: No calf tenderness, no lower extremity edema, +SCDsLabs:Diagnostic tests reviewed for today's visit:No new labsCurrent hospital medications:metoprolol succinate ER 200 mg tab(s) (TOPROL XL) 200 mg ORAL DAILYlactated ringers infusion 100 mL/hr INTRAVENOUS CONTINUOUS0.9% NaCl 2-10 mL 2-10 mL INTRAVENOUS q 12 Hondansetron orally disintegrating 4 mg tab(s) (ZOFRAN ODT) 4 mg ORAL q 6 HPRNondansetron (PF) 4 mg injection (ZOFRAN) 4 mg INTRAVENOUS q 6 H PRNmetoclopramide HCl 10 mg tab(s) (REGLAN) 10 mg ORAL q 6 H PRNmetoclopramide HCl 10 mg injection (REGLAN) 10 mg INTRAVENOUS q 6 H PRNdiphenhydrAMINE 25 mg injection (BENADRYL) 25 mg INTRAVENOUS HS PRNdocusate sodium 100 mg cap(s) (COLACE) 100 mg ORAL BIDpolyethylene glycol 3350 17 g packet (MIRALAX, GLYCOLAX) 17 g ORAL DAILYketorolac 30 mg injection (TORADOL) 30 mg INTRAVENOUS q 6 H[START ON 09/15/2017] ibuprofen (MOTRIN) tab(s) 600 mg 600 mg ORAL q 6 Hfamotidine 20 mg tab(s) (PEPCID) 20 mg ORAL BID[START ON 09/15/2017] enoxaparin 40 mg injection (LOVENOX) 40 mgSUBCUTANEOUS DAILYdextrose 40 % 15 g (INSTA-GLUCOSE) 15 g ORAL PRNglucagon 1 mg injection (GLUCAGEN) 1 mg INTRAMUSCULAR PRNdextrose 50% in water 25 mL syringe 12.5 g INTRAVENOUS PRNinsulin lispro injection (rapid acting) (HumaLOG) SUBCUTANEOUS w MEALSinsulin lispro injection (rapid acting) (HumaLOG) SUBCUTANEOUS AT BEDTIMEacetaminophen 1,000 mg tab(s) (TYLENOL) 1,000 mg ORAL q 6 Hscopolamine 1 mg over 3 days 1 Patch (TRANSDERM-SCOP) 1 Patch TRANSDERMAL(PACU) PRNscopolamine - VERIFY patch OTHER q 8 H[START ON 09/15/2017] scopolamine - REMOVE PATCH OTHER ONCEHYDROmorphone 0.5 mg/mL TEST PREPARATION TUTOR CLINICIAN DOSE 0.2 mg 0.2 mg INTRAVENOUS q 6 HPRNHYDROmorphone TEST PREPARATION TUTOR 0.5 mg/mL in NaCl 0.9% 100 mL INTRAVENOUS CONTINUOUSSIGNATURE: Alecia Cramer MD PATIENT NAME: Rogerio SnowleDATE: September 14, 2017 : 4:43 PM PAGER: [phone] [facility] SURGICAL PATHOLOGYon 017 SURGICAL PATHOLOGY ADDENDUM PRESENT [facility]: [id number] Physician: KEVIN MADISON MD FINAL DIAGNOSIS1. Abdominal wall peritoneum, biopsy (A) - Fibroadipose tissue, negativefor carcinoma.2. Omentum, biopsy (B) - Fibroadipose tissue, negative for carcinoma.3. Small bowel mesentery, biopsy (C) - Fibroadipose tissue, negative forcarcinoma.4. Bladder peritoneum, biopsy (D) - Fibroadipose tissue, negative forcarcinoma.5. Right pelvic peritoneum, biopsy (E) - Fibroadipose tissue, negative forcarcinoma.6. Uterus, cervix, bilateral ovaries and fallopian tubes, hysterectomy andbilateral salpingo-oophorectomy (F) - Endometrial endometrioid carcinoma,FIGO Grade 2, with MELF pattern of invasion.- Carcinoma invades 14 of 15 mm of myometrium (93%).- Multifocal lymphovascular invasion is identified.- Myometrial leiomyoma- Right and left fallopian tubes with benign paratubal cysts.- Right and left ovaries with no significant pathologic findings.7. Bladder peritoneum, biopsy (G) - Fibroadipose tissue, negative forcarcinoma.8. Lymph node, right periaortic, excision (H) - Metastatic carcinomainvolving two of six lymph nodes (2/6).9. Omentum, omentectomy (I) - Fibroadipose tissue, negative for carcinoma.10. Lymph nodes, right pelvic, excision (J) - Metastatic carcinomainvolving six of six lymph nodes (6/6).11. Lymph node, left pelvic, excision (K) - Six lymph nodes, negative forcarcinoma (0/6).12. Lymph node, left periaortic, excision (L) - Metastatic carcinomainvolving one lymph node (1).LEO/norma 09/18/2017SYNOPTIC REPORT OF OLIVIER PATHOLOGIC FINDINGSUTERUS AND CERVIX WITH BILATERAL OVARIES AND FALLOPIAN TUBES: Specimen: Uterine corpus Cervix Right ovary Left ovary Right fallopian tube Left fallopian tube Omentum Other (specify): Lymph nodes, peritoneumProcedure: Simple hysterectomy Bilateral salpingo-oophorectomy Omentectomy Peritoneal biopsiesLymph Node Sampling: Performed: Pelvic lymph nodes Performed: Para-aortic lymph nodesSpecimen Integrity: Intact hysterectomy specimenTumor Size: Greatest dimension: 13.6 cmHistologic Type: Endometrioid adenocarcinomaHistologic Grade: FIGO grade 2Myometrial Invasion: Present Depth of invasion: 14 mm Myometrial thickness: 15 mmTumor Involvement of Cervix: Not involvedOther Organs Submitted: Right ovary not involved Left ovary not involved Right fallopian tube not involved Left fallopian tube not involved Omentum not involvedPeritoneal Ascitic Fluid: Not performed/unknownLymph-Vasc ular Invasion: Present Comment: MultifocalTNM Descriptors: Not applicablePrimary Tumor (pT): pT1b (IB): Tumor invades greater than or equal to one-half of themyometriumRegional Lymph Nodes (pN): pN2: Regional lymph node metastasis to para-aortic lymph nodes, withor without positive pelvic lymph nodes Number of pelvic lymph nodes examined: 12 Number of pelvic lymph nodes involved: 6 Number of para-aortic lymph nodes examined: 7 Number of para-aortic lymph nodes involved: 3 No other lymph nodes submitted or foundDistant Metastasis (pM): Not applicableAncillary Studies: Sharma syndrome screening: Will be reported in an addedumRepresentative Tumor block: Specify: F7 ----Anyi Goyal MD(Electronic Signature) SPEC IMEN SUBMITTEDA: ABDOMINAL WALL PERITONEAL BIOPSY B: OMENTUM C: SMALL BOWEL MESENTERIC D: BLADDER PERITONEUM BIOPSY E: RIGHT PELVIC PERITONEUM BIOPSY F: UTERUS AND CERVIX WITH BILATERAL OVARIES AND FALLOPIAN TUBES G: BLADDER PERITONEUM H: RIGHT KADEEM AORTIC LYMPH NODE I: OMENTUM J: RIGHT PELVIC LYMPH NODES K: LEFT PELVIC LYMPH NODES L: LEFT PERIAORTIC LYMPH NODE ADDENDUM Date Ordered: 09/18/2017 Date Reported: 09/19/2017 Immunohistochemistry (IHC) for mismatch repair proteins (MMR) inendometrial carcinomaFinal Diagnosis:Mismatch repair proteins (MLH1, PMS2, MSH2, and MSH6) are expressed incarcinoma nucleiIHC Results:PMS2 expressed in carcinoma nucleiMLH1 expressed in carcinoma nucleiMSH6 expressed in carcinoma nucleiMSH2 expressed in carcinoma nucleiIHC for MMR proteins was performed on tissue block F7 with appropriatecontrols.Immunoh istochemistry (IHC) testing is one of the standard tests completedon all endometrial carcinomas at [facility]. IHC stains for MMRproteins were performed to assist in screening for HNPCC (Sharma Syndrome).MMR proteins function as heterodimers with the association of MLHI withPMS2 and the association of MSH2 with MSH6. These binding partnershipsstabilize MMR proteins. Immunohistochemical screen for the detection of MMRproteins is a cost-effective screen for Sharma syndrome in at least 95% ofcases. As clinically indicated, and in the appropriate setting of geneticcounseling with informed patient consent, further molecular genetic testingmay be needed. For more information, please call the [facility] for [employer] at . References:1. Viky Haynes, et al. Immunohistochemistry versus microsatellite instabilitytesting for screening colorectal cancer patients at risk for hereditarynonpolyposis colorectal cancer syndrome. Am J Surg Pathol 2009, 33:1639-452. Tran Haynes, et al. Implementation of tumor testing for shamra syndrome inendometrial cancers at a [facility]. Gynecol Oncol.2013, 130(1):121-63. Monika JS, et al. Testing women with endometrial cancer to detect Lynchsyndrome. J Clin Oncol. 2011, 29:5517Laboratory Developed Test (LDT) Disclaimer:Positive and negative controls stain appropriately. Performancecharacteristics of immunohistochemical, immunofluorescent and chromogenicin-situ hybridization tests have been determined by [facility]'t[facility] Galvan [facility] [place] (-[facility]) zeyad manner consistent with CLIA requirements. One or more of these tests havenot been cleared or approved by the FDA. RT-PLTX is regulated under CLIA asqualified to perform high-complexity testing. These tests are used forclinical purposes. They should not be regarded as investigational or forresearch.Addendum Pathologist: Anyi Goyal MDElectronic Signature CLINICAL DATAMALIGNANT NEOPLASM OF BODY OF UTERUS, UNSPECIFIED SITEINTRAOPERATIVE CONSULT DIAGNOSISFSA1: Abdominal wall peritoneal biopsy - benign (Dr. Amaya). FSB1: Omentum - benign (Dr. Amaya). FSC1: Small bowel mesentery - benign (Dr. Amaya). FSD1: Bladder peritoneum biopsy - Benign (Dr. Amaya). FSE1: Right pelvic peritoneum biopsy - benign (Dr. Amaya).FSF1: Endometrium - invasive endometrial adenocarcinoma, endometrioid type,at least FIGO Grade 1 invading greater than 50% of the myometrial thickness(Dr. Amaya).FSF2: Left adnexal tissue - benign (Dr. Amaya). FSG1: Bladder peritoneum - benign (Dr. Amaya).FSH1: Right periaortic lymph node - two of six lymph nodes, positive forcarcinoma (Dr. Amaya). Intraoperative diagnosis performed at [facility], [address] [place], [place] [address]LQJKD DESCRIPTIONA. Received fresh for frozen section diagnosis designated abdominal wallbiopsy is a segment of fibrofatty tissue with membranous tissue measuring1.2 x 0.8 x 0.3 cm. The specimen is totally submitted for frozen then forpermanent in one cassette. B. Received fresh for frozen section diagnosis designated omentum is asegment of fibrofatty tissue measuring 3.1 x 1.2 x 0.4 cm. The specimen istotally submitted for frozen then for permanent in one cassette. C. Received fresh for frozen section diagnosis designated small bowelmesenteric is a segment of fibrofatty tissue with camilo-pink membranoustissue measuring 0.8 x 0.6 x 0.3 cm. The specimen is totally submitted forfrozen then for permanent in one cassette. D. Received fresh for frozen section diagnosis designated bladderperitoneum biopsy is a segment of fibrofatty tissue with camilo-pinkfibrinous tissue measuring 2.8 x 1.3 x 0.3 cm. The specimen is totallysubmitted for frozen then for permanent in one cassette.E. Received fresh for frozen section diagnosis designated right pelvicperitoneal biopsy is a segment of fibrofatty tissue with camilo-pinkmembranous tissue measuring 0.4 x 0.3 x 0.1 cm. The specimen is totallysubmitted for frozen then for permanent in one cassette.LUCILLE/damion 09/14/2017 F. Received fresh for frozen section diagnosis designated uterus, cervix,bilateral tubes and ovaries is a uterus with attached cervix, attachedright fallopian tube and ovary and detached left fallopian tube and ovary.The uterus with attached cervi weighs 363 grams and measures 14.5 x 8.5 x5.5 cm. The serosal aspect is camilo-pink and smooth. The cervix measures 3.5x 2.8 cm and has a slit-like os present. There are no lesions identified onthe surface of the cervix. A vaginal cuff is not present. The endocervicalcanal measures 3.1 cm in length. The endometrial cavity measures 10 cm inlength x 7.1 cm in width. The endometrium is completely replaced by atan-pink shaggy mass which measures 13.6 x 10 x 2.8 cm. The mass extendsinto the myometrium greater than 50%, less than 0.1 cm to the serosalaspect. No uninvolved endometrium is identified. Sectioning reveals asingle white whorled bulging roughly spherical mass, intramural inlocation, in the anterior uterine wall measuring 1 cm in greatestdimension. The right fallopian tube measures 5.2 cm in length x 0.6 cm indiameter. The fimbriated end has a normal villous appearance which has beenamputated and bisected. There are no adhesions present between thefallopian tube and ovary. Sectioning of the fallopian tube reveals apinpoint lumen. On the external surface of the fallopian tube are multiplewhite nodules measuring up to less than 0.1 cm greatest dimension. Withinthe attached adnexal soft tissue is a single simple cyst measuring 3 cm ingreatest dimension. The cyst contains a clear serous fluid. The wall of thecyst are smooth. The right ovary weighs 7 grams and measures 4 x 2.1 x 1.3cm. The external surface has multiple hemorrhagic adhesions present.Sectioning of the ovary does not reveal any masses, cysts or papillations.The left ovary and fallopian tube weigh 67 grams. The fallopian tube isadherent to the ovary and a fimbriated end is not identified. Sectioning ofthe fallopian tube reveals a dilated lumen. On the pablo are two whitenodules measuring up to 0.1 cm in thickness. The remainder of the surfaceis camilo and smooth. On the surface of the fallopian tube are similar whitefirm nodules measuring up to less than 0.1 cm in greatest dimension. Theleft ovary weighs 7.5 grams and measures 3 x 2.6 x 1.5 cm. The externalsurface has rare hemorrhage adhesions present. Sectioning of the ovary doesnot reveal any masses, cysts or papillations. Corporate Specialist sections aresubmitted as follows: F1 deepest extent of endometrial mass frozen section;F2 nodules on fallopian tube frozen section; F3 12 o'clock cervix; F4 6o'clock cervix; F5 anterior lower uterine segment in relation to mass; I1cvkyunfiw lower uterine segment in relation to mass; F7-F8 deepest extentof mass anterior uterine wall; F9 deepest extent of mass posterior uterinewall; F10 anterior uninvolved myometrium in relation to mass; F11 posterioruninvolved myometrium in relation to mass; F12 other myometrial mass; B30gbkem fallopian tube; F14 adnexal soft tissue cyst; F15 right ovary; N21wkyd fallopian tube; F17 left ovary.LUCILLE/jw09/14/17G. Received fresh for frozen section diagnosis designated bladderperitoneum is a segment of fibrofatty tissue with camilo-pink membranoustissue measuring 15 x 4 x 0.8 cm. Corporate Specialist sections are submitted asfollows: G1 frozen section, G2-G3 additional petroleum products sales representative sections. LUCILLE/damion 09/14/2017H. Received fresh for frozen section diagnosis designated right periaorticlymph nodes are multiple segments of fibrofatty tissue. Sectioning andpalpation reveals multiple camilo-pink firm lymph nodes measuring up to 3.2 cmin greatest dimension. The two largest lymph nodes are grossly positive.Corporate Specialist sections are submitted as follows: H1 representativesections largest lymph node for frozen; H2 petroleum products sales representative section secondlargest lymph node; H3 four lymph nodes totally submitted.I. Received in formalin designated omentum is a segment of fibrofattytissue measuring 37.5 x 15.2 x 1.8 cm. The specimen is serially sectionedand palpated. No masses or nodules are grossly identified. Representativesections are submitted in six cassettes.LUCILLE/jw09/14/17Gro ss examination performed at [facility], [address], [place] [address]E. Received in formalin designated right pelvic nodes are multiplesegments of fibrofatty tissue aggregating to 11.0 x 5.0 x 1.2 cm. Thespecimen is serially sectioned and palpated revealing multiple camilo-pinkfirm lymph nodes measuring up to 5.6 cm in greatest dimension. J1-J5 onelymph node serially sectioned, J6-J8 one lymph node serially sectioned, J9one lymph node serially sectioned, J10 one lymph node serially sectioned,J11 two lymph nodes..0 x K. Received in formalin designated left pelvic nodes are multiplesegments of fibrofatty tissue aggregating to 6.6 x 1,5 x 1,4 cm. Thespecimen is serially sectioned and palpated revealing multiple camilo-pinkfirm lymph nodes measuring up to 2.8 cm in greatest dimension. The lymphnodes are totally submitted as follows: K1-K3 one lymph node seriallysectioned, K4 one lymph node bisected, K5 two lymph nodes,, K6 one lymphnode.L. Received in formalin designated left periaortic node is a single lymphnode with minimally adherent fibrofatty tissue measuring 2.0 x 0.9 x 0.7cm. The specimen is serially sectioned and totally submitted in 1 cassette.BF/dbb 09/14/2017Gross examination performed at [facility], [address] [place], [place] [address]Patient ID #: [id number] of Report: 09/19/2017Date of Procedure: 09/14/2017Date of Receipt: 09/14/2017Submitted by: KEVIN MADISON MDLocation: [id number] interpretation performed at [facility], [address] [place] [address]. [facility] Comment on above: Performed By: #### P ATHS ####[place] [address] NURSING PROGon 09-13-2017 NURSING PROG HNO ID: [id number] thor: Gaye (Rn) CONSTANTINO Garnicaervice: (none)Author Type: Registered NurseType: Nursing Progress NoteFiled: 09/13/2017 1:40 PMNote Text:PACC Nurse Progress NoteHistory AND Physical:PACC Visit Date: 08/28Original HANDP Date: N/AED visit Date: N/AOutside HANDP Scanned Date: N/ALabs Within Last 6 Months:CBC: Date 08/28-hg. 10.9; hct. 36.0BMP/CMP: Date CMP done 08/28-acc.TYPE AND SCREEN: Date 08/28OTHER TEST: Iron studies done , Date 08/28Imaging Within Last 12 Months:N/ACardiac Testing:EKG in last 12 Months: Yes: Date: 08/19/17, Comment: confirmedLast Menstrual Period:LMP Date: N/APostmenopausal >1yr: Yes,S/P Hysterectomy: NoBMI Percentile (PEDS):N/ARisk Assessment:Cardiac Date: Cardiac clearance scanned into [facility] 09/13 from and left a v.m. to check if pt. is cleared for surgery. I hadnot heard back and opened chart again and under encounters per ALAN Greco states pt. was cleared and clearance is being scanned intoic(see scanned documents') and pt. was notified.Anesthesia Review :N/ANarrative: See aboverisk assessment. Dr. Madison's office notified of CBCresults by myself and also by staff message by mid-level provider (TOMMIE Guillaume)09/13Pre-op Considerations:N/AChart Check:Jhonatan Davey 2016 12:55 PM [facility] Office Visiton 09-06-2017 Dietary management education, guidance, and counseling (procedure) yes Invalid Interpretation Code [facility] Work Phone: [phone] Documentation of current medications (procedure) Done Invalid Interpretation Code [facility] Work Phone: [phone] Fall risk assessment No Invalid Interpretation Code [facility] Work Phone: [phone] Tobacco use CPHS Former smoker Invalid Interpretation Code [facility] Work Phone: [phone] Replaced Document: Laz Warner CG Observationson 09-06-2017 EKG QRS axis 7 deg Invalid Interpretation Code [facility] Work Phone: [phone] Interpretation Sinus Rhythm WITHIN NORMAL LIMITS Invalid Interpretation Code [facility] Work Phone: P Maxwell 55 deg Invalid Interpretation Code [facility] Work Phone: [phone] HI Interval 174 ms Invalid Interpretation Code [facility] Work Phone: [phone] Pulse (Heart Rate) 62 /min Invalid Interpretation Code [facility] Work Phone: [phone] QRS Duration 98 ms Invalid Interpretation Code [facility] Work Phone: [phone] QT Interval new path ms Invalid Interpretation Code [facility] Work Phone: [phone] QTc Blunt 407 ms Invalid Interpretation Code [facility] Work Phone: [phone] T Maxwell 20 deg Invalid Interpretation Code [facility] Work Phone: [phone] Clinical Lists Update: Prelo clinical account manager 09-04-2017 Tobacco use CPHS Former smoker Invalid Interpretation Code [facility] Work Phone: [phone] Confirm Blood Typeon 017 ABO/RH(D) Negative [facility] Comment on above: Performed By: #### C ONABO ####[place] [id number] Performed By: #### T SCR30 ####[place] [id number] Type and SCR (30D)on 017 Antibody Screen Negative [facility] Comment on above: Performed By: #### T SCR30 ####[place] [id number] Lab Report: Basic Metabolic Profile (BMP)on 08-25-2017 Anion gap 10 mmol/L Invalid Interpretation Code 5-15 [facility] Work Phone: [phone] BUN/Creatinine Ratio 28.0 RATIO High 10-20 [facility] Work Phone: [phone] Calcium 9.0 mg/dL Invalid Interpretation Code 8.5-10.1 [facility] Work Phone: [phone] Chloride 100 mmol/L Invalid Interpretation Code 98-107 [facility] Work Phone: [phone] CO2 28.0 mmol/L Invalid Interpretation Code 21.0-32.0 [facility] Work Phone: [phone] Creatinine 0.57 mg/dL Invalid Interpretation Code 0.55-1.02 [facility] Work Phone: [phone] eGFR (non-black) 141 mL/min/{1.73_m2} Invalid Interpretation Code >60 [facility] Work Phone: [phone] eGFR (non-black) 117 mL/min/{1.73_m2} Invalid Interpretation Code >60 [facility] Work Phone: [phone] Glucose mass conc 142 mg/dL High 70-110 [facility] Work Phone: [phone] Potassium molar conc 3.9 mmol/L Invalid Interpretation Code 3.5-5.1 [facility] Work Phone: [phone] Sodium 138 mmol/L Invalid Interpretation Code 136-145 [facility] Work Phone: [phone] Urea nitrogen 16 mg/dL Invalid Interpretation Code 7-18 [facility] Work Phone: [phone] Lab Report: Hemoglobin A1con 08-25-2017 Hemoglobin A1c/Hemoglobin.total mass fraction (Bld) 9.1 % High 4.2-6.3 [facility] Lab Report: Lipid Profileon 08-25-2017 Cholesterol 158 mg/dL Invalid Interpretation Code 200 [facility] Work Phone: [phone] HDL Cholesterol 51 mg/dL Invalid Interpretation Code [facility] Work Phone: [phone] LDL Cholesterol 68 mg/dL Invalid Interpretation Code 0-130 [facility] Work Phone: [phone] Triglyceride 193 mg/dL Invalid Interpretation Code [facility] Work Phone: [phone] very low density lipoproteins 39 mg/dL Invalid Interpretation Code 5-40 [facility] Work Phone: [phone] Office Visiton 08-23-2017 Documentation of current medications (procedure) Done Invalid Interpretation Code [facility] Work Phone: [phone] Fall risk assessment No Invalid Interpretation Code [facility] Work Phone: [phone] Tobacco use CPHS Former smoker Invalid Interpretation Code [facility] Work Phone: [phone] Lab Report: CBC W/Diff, Auto matedon 08-19-2017 Absolute Neut 9.5 X10 3/UL High 2.0-7.7 [facility] Work Phone: [phone] Basophils/100 WBC Auto (Bld) 0.3 % Invalid Interpretation Code 0-1 [facility] Work Phone: [phone] Eosinophils/100 leukocytes 2.1 % Invalid Interpretation Code 0-5 [facility] Work Phone: [phone] Erythrocyte distribution width Auto Ratio (RBC) 14.4 % Invalid Interpretation Code 11.6-14.6 [facility] Work Phone: [phone] Erythrocytes (RBC) 4.53 10*6/uL Invalid Interpretation Code 4.2-5.4 [facility] Work Phone: [phone] Hematocrit (HCT) 39.4 % Invalid Interpretation Code 37-47 [facility] Work Phone: [phone] Hemoglobin mass conc (Bld) 12.1 g/dL Invalid Interpretation Code 12.0-15.0 [facility] Work Phone: [phone] Immature granulocytes/100 WBC (Bld) 0.600 % Invalid Interpretation Code 0.0-0.9 [facility] Work Phone: [phone] Lymphocytes 1.87 X10 3/UL Invalid Interpretation Code 0.83-4.51 [facility] Work Phone: [phone] Lymphocytes/100 leukocytes 14.7 % Low 19-41 [facility] Work Phone: [phone] MCH 26.7 pg Low 27.0-32.0 [facility] Work Phone: [phone] MCHC mass conc (RBC) 30.7 G/GL Low 32-36 [facility] Medicine Work Phone: [phone] MCV 87.0 fL Invalid Interpretation Code 81-99 [facility] Work Phone: [phone] Monocytes/100 leukocytes 7.8 % Invalid Interpretation Code 0-10 [facility] Work Phone: [phone] Neutrophils/100 WBC Auto (Bld) 74.5 % High 47-70 [facility] Work Phone: [phone] Platelets 280 10*3/mm3 Invalid Interpretation Code 150-450 [facility] Work Phone: [phone] PMV by Marie 9.8 fL Invalid Interpretation Code 6.2-12.0 [facility] Work Phone: [phone] RDW SD 45.4 fL High 35.1-43.9 [facility] Work Phone: [phone] WBC (Leukocytes) 12.7 10*3/uL High 4.4-11.0 [facility] Work Phone: [phone] Lab Report: [facility] 08-19-2017 Alanine aminotransferase (ALT) 24 U/L Invalid Interpretation Code 12-78 [facility] Work Phone: [phone] Albumin 3.3 g/dL Low 3.4-5.0 [facility] Work Phone: [phone] Albumin/Globulin Ratio 0.8 {ratio} Low 0.9-2.4 [facility] Work Phone: [phone] Alkaline phosphatase (ALP) 116 U/L Invalid Interpretation Code 45-117 [facility] Work Phone: [phone] Anion gap 11 mmol/L Invalid Interpretation Code 5-15 [facility] Work Phone: [phone] Aspartate aminotransferase (AST) 18 U/L Invalid Interpretation Code 15-37 [facility] Work Phone: [phone] Bilirubin (total) 0.40 mg/dL Invalid Interpretation Code 0.20-1.00 [facility] Work Phone: [phone] BUN/Creatinine Ratio 25.3 RATIO High 10-20 [facility] Work Phone: [phone] Calcium 9.1 mg/dL Invalid Interpretation Code 8.5-10.1 [facility] Work Phone: [phone] Chloride 102 mmol/L Invalid Interpretation Code 98-107 [facility] Work Phone: [phone] CO2 27.0 mmol/L Invalid Interpretation Code 21.0-32.0 [facility] Work Phone: [phone] Creatinine 72.40 mL/min Invalid Interpretation Code [facility] Work Phone: [phone] Creatinine 0.79 mg/dL Invalid Interpretation Code 0.55-1.02 [facility] Work Phone: [phone] eGFR (non-black) 97 mL/min/{1.73_m2} Invalid Interpretation Code >60 [facility] Work Phone: [phone] eGFR (non-black) 80 mL/min/{1.73_m2} Invalid Interpretation Code >60 [facility] Work Phone: [phone] Globulin 4.2 g/dL Invalid Interpretation Code 2.2-4.2 [facility] Work Phone: [phone] Glucose mass conc 210 mg/dL High 70-110 [facility] Work Phone: [phone] Potassium molar conc 3.9 mmol/L Invalid Interpretation Code 3.5-5.1 [facility] Work Phone: [phone] Protein 7.5 g/dL Invalid Interpretation Code 6.4-8.2 [facility] Work Phone: [phone] Sodium 140 mmol/L Invalid Interpretation Code 136-145 [facility] Work Phone: [phone] Urea nitrogen 20 mg/dL High 7-18 [facility] Work Phone: [phone] Lab Report: Prothrombin Time w/INRon 08-19-2017 INR Coag RelTime (PPP) 0.9 {INR} Invalid Interpretation Code [facility] Work Phone: [phone] Prothrombin time (PT) Coag time (PPP) 12.1 s Invalid Interpretation Code 11.7-14.9 [facility] Work Phone: [phone] HOSPon 08-15-2017 HOSP Patient:Rogerio Stephens SMRN: Height:5' 3(1.6 m)Weight:255 lb 6.4 oz (115.849 kg)Outpatient Medications as of 09/14/17:sitaGLIPtin (JANUVIA) 100 mg tabletmetoprolol succinate ER (TOPROL XL) 200 mg 24 hr tabletValsartan-Hydrochloro thiazide 320-25 mg per tabletmetFORMIN ER (GLUCOPHAGE XR) 500 mg 24 hr tabletAdmission/Clinic Administered Medications as of 09/14/17:lidocaine 10 mg/mL (1 %) 1-2 mg injection (XYLOCAINE)lactated ringers infusionceFAZolin 2 g in dextrose (iso-osmotic) 100 mL (ANCEF, KEFZOL)acetaminophen 1,000 mg injection (OFIRMEV)Problem List:HTN (hypertension) [I10]DM (diabetes mellitus) (HCC) [E11.9]Obesity [E66.9]Endometrial cancer (HCC) [C54.1]Allergies:CodeineLis inoprilDate Verified: 09/14/17Lab ValuesLab Value Units Date High LowPOTA* 4.7 mmol/L 08/28/2017 5.1 3.7HEMA* 36.1 % 08/28/2017 46.0 36.0Progress Notes (SECTION 8 PROPERTY MANAGER [facility]):Mami Grissom RN, RN 09/13/2017 11:27 AM SignedLaurie from pt's display artist office called stating pt is cleared from cardiacstandpoint and they will be faxing letter. She states they already informedpatient.Mami Grissom RN, RN 09/13/2017 11:36 AM SignedRecords and clearance letter receivedWill send to be scanned into epicProgress Notes (SECTION 8 PROPERTY MANAGER [facility]):Marielos Humphreys RN, RN 09/05/2017 9:39 AM SignedProcedure: LAPAROSCOPIC HYSTERECTOMY W/REMOVAL TUBE(S) AND/OR OVARY(S) -BilateralPhysician: Dr. Samuelscation: [facility]: [phone] AND Time: SeptemberMEDICAL CLEARANCE: No CARDIAC CLEARANCE: NoPRE ADMISSION TESTING: YesTHE FOLLOWING WAS EVALUATED Motivation To Learn: EagerInterested Family/Significant Other Support: Unable to assess - Family not present Cognitive Ability: Alert and orientedPatient Learns Best By: Individual InstructionWritten Instruction - Hand-outsVerbal InstructionMultiple MethodsThe Following Influencing Factors Were Barriers To This Education Session: NoneThe Following Physical Limitations Were Barriers To This Education Session:NoneInstruction Provided To: PatientMEDICATION INFORMATIONASPIRIN and ADVIL can make you more prone to bleeding after surgery. PleaseSTOP taking these medications at least (5) days before and for (3) days aftersurgery or procedure. Some common medications that contain ASPIRIN or act likeAspirin areTO BE AVOIDED:This is a list of the medications you should avoid: Advill Celebrex MotrinAggrenox Clinoril Naprosyn(naproxen)Agrylin NSAIDS Pepto-BismolAleve Ecotrin PersantineAlka-Malvern Excedrin PlaquenilAnacin Heparin PlavixAscriptin Herbals PletalAspergum Ibuprofen TiclidBayer Indocin TrentalBextra Midol VanquishBufferin Gingko Biloba Vitamin E (MVI)STOP Blood thinning medications, vitamins, and herbal supplements: Per yourGYN Oncologist, please obtain approval for stopping medication at least 7 daysbefore the procedure , with your prescribing physician. Please have theprescribing doctor contact our office with approval by faxing to [phone].Please send to the attention of Dr. Madison.RESUME MEDICATION: 1-2 days after the procedure or until urine is clear ofblood.MEDICATIONS YOU MAY SUBSTITUTEAnacin 3 Fioricet * Tylenol with codeine *Darvocet N 100 * Plenadol Percocet *Datril Sine-Aide TylenolExcedrin PM(*Denotes prescription needed to obtain these medications)Learning Topic: Procedure/Surgery: Pre- Op teachingInstructions reviewed for arrival time, parking and admission.Specific topics reviewed and discussed with all surgical patients include:No eating, drinking, or smoking after midnight prior to surgery.Medications as prescribed by anesthesia or the physician.Review of information contained in surgical packetPre-operative and intra-operative general activities were reviewed including:Holding Area, assessments, surgical positioning, and Family Waiting Area.Written post-operative instructions were given to the patient regarding post-opactivity, pain control, symptoms to report.Post-operative instructions provided and reviewed with patient/family:ACTIVITY - No heavy lifting (>5-10 lbs), no pushing/pulling, OK to climb stairsDRIVING - No driving while taking prescription pain medication, or within 24hours of anesthesia, OK to ride in a car.DIET - Advance diet as tolerated and as ordered by MD, drink 8 glasses of watera day, eat a diet high in protein and fiber unless otherwise directed by MD.CATHETER - Will be inserted during surgery, you may go home with a catheter. Ifyou go home with a catheter you will have to come back to the office for avoiding trial, UTI symptoms reviewed and patient instructed to notify MD of anyof these symptoms.INCISION CARE - Keep incision clean and dry, alex to be removed 7-10 daysafter surgery, steristrips do not need to be removed by MDBATHING - OK to shower after surgery unless otherwise directed by MD, no tubbaths.PAIN MEDICATION - IV pain medication after surgery, IV TEST PREPARATION TUTOR if ordered by MD,discharged home with a prescription for PO pain medication, pain managementafter surgery, side effects of pain medication (including constipation,dizziness, drowsiness, and medication interactions).DVT PROPHYLAXIS - Early ambulation, SCDs, injectable anticoagulants (heparin,lovenox, etc)RESPIRATORY - Incentive spirometer, coughing/deep breathing exercises,ambulation.RETURN TO WORK - As directed by physician, please send any [facility] papers tophysician's secretary board of commissioners.SYMPTOMS TO NOTIFY MD - Fever, chills, nausea, vomiting, increased or severepain, heavy vaginal bleeding, foul smelling vaginal drainage, pain or swellingin extremities.URGENT SYMPTOMS - Call 911 or go to ER if any shortness of breath, difficultybreathing, or chest pain.HOW TO CONTACT PHYSICIAN - Physician's office phone number given to patient, ifafter hours patient instructed to call box folding machine operator and ask for the doctor resolute professional.Patient and family have phone number to call 24 hours/day.Patient Evaluation: Verbalizes understandingPatient and/or family express understanding of upcoming surgery and theoperative process. Questions answered.Follow Up Plan: Follow up as directed by MD.Supplemental Material Given:Pre-operative teaching packet provided to the patient:INPATIENT/OUTPATIEN T printed instructions; Post-operative instruction sheet,bowel prep instruction sheetFor questions contact: Dr. Madison's office at [phone] By Marielos Humphreys RN [facility] HOSP 08-14-2017 HOSP Patient Update (FVPRAD) -------ROGERIO STEPHENS ( ) 1960 FDate Time Provider Xssviaehzu76/6/17 BRENDA HANSON (NURSING TECHN) FVPRASayra During your visit today, we recorded the following information about you:Allergies As of Date: 08/14/2017 Noted Allergy ReactionCODEINE 08/11/2017 14 - Other: See Comments Comments: Pseudotumor cerebriaLISINOPRIL 08/11/2017 14 - Other: See Comments Comments: angioedemaDate Reviewed: 08/11/2017Reviewed by: Mana Ambriz Ma - Fully AssessedPrimary Visit Diagnosis:Malignant neoplasm of body of uterus, unspecified site (HCC) [C54.9]Order(s):SURGICAL REQUEST - ELECTIVE [[id number]] Order #: [id number]: 1 XR CHEST 2V FRONTAL/LAT [[id number]] Order #: [id number] FUTUREPrescriptions as of 08/14/2017 Sig: METOPROLOL SUCCINATE ER 200 M* Take 200 mg by mouth once pastora* VALSARTAN 320 MG-HYDROCHLOROT* Take 1 tablet by mouth once d* METFORMIN ER 500 MG TABLET,EX* Take 2,000 mg by mouth once d*Problem List As Of Date: 08/14/2017(None) Status:Closed by BRENDA HANSON CNP on 08/14/17 [facility] Lab Report: PAP I-G HPV Hi R iskon 08-03-2017 HPV HC,HGH RISK Negative Invalid Interpretation Code Negative [facility] Work Phone: [phone] Lab Report: Cancer Antigen 1 08-02-2017 cancer 125 antigen 826.1 U/mL High 0.0-38.1 [facility] Work Phone: [phone] Office Visit: [facility] 07-31-20 Documentation of current medications (procedure) Done Invalid Interpretation Code [facility] Work Phone: [phone] Fall risk assessment No Invalid Interpretation Code [facility] Work Phone: [phone] Tobacco use CPHS Former smoker Invalid Interpretation Code [facility] Work Phone: [phone] Office Visit: [facility] 08-09-20 16 Colonoscopy (procedure) Colonoscopy (procedure) Invalid Interpretation Code [facility] Work Phone: [phone] Office Visit: [facility] 10-09-18 94 General categories [Interpretation] of Cervical or vaginal smear or scraping by Cyto stain Normal Invalid Interpretation Code [facility] Work Phone: [phone] Culture, urine Bacteria identified Cx Nom (U) Positive [facility] Work Phone: Vital Signs Date Time Vital Sign Value Performing Clinician Facility 03-07-2025 13:04-0400 Body height 157.[address] Ahsan Luna MD Work Phone: [facility] 03-07-2025 13:04-0400 Body mass index (BMI) [Ratio] 44.5 kg/m2 Dr. Ahsan Luna MD Work Phone: [facility] 03-07-2025 13:04-0400 Body temperature 97.5 [degF] Dr. Ahsan Luna MD Work Phone: [facility] 03-07-2025 13:04-0400 Body weight 110.[address] Ahsan Luna MD Work Phone: [facility] 03-07-2025 13:04-0400 Diastolic blood pressure 82 mm[Hg] Dr. Ahsan Luna MD Work Phone: [facility] 03-07-2025 13:04-0400 Heart rate 67 /min Dr. Ahsan Luna MD Work Phone: [facility] 03-07-2025 13:04-0400 Respiratory rate 16 /min Dr. Ahsan Luna MD Work Phone: [facility] 03-07-2025 13:04-0400 SaO2% (BldA) [Mass fraction] 96 % Dr. Ahsan Luna MD Work Phone: [facility] 03-07-2025 13:04-0400 Systolic blood pressure 132 mm[Hg] Dr. Ahsan Luna MD Work Phone: [facility] 02-17-2025 15:30-0400 Body mass index (BMI) [Ratio] 44.6 kg/m2 Dr. Ahsan Luna MD Work Phone: [facility] 02-17-2025 15:30-0400 Body temperature 98.1 [degF] Dr. Ahsan Luna MD Work Phone: [facility] 02-17-2025 15:30-0400 Body weight 110.[address] Ahsan Luna MD Work Phone: [facility] 02-17-2025 15:30-0400 Diastolic blood pressure 68 mm[Hg] Dr. Ahsan Luna MD Work Phone: [facility] 02-17-2025 15:30-0400 Heart rate 80 /min Dr. Ahsan Luna MD Work Phone: [facility] 02-17-2025 15:30-0400 Respiratory rate 18 /min Dr. Ahsan Luna MD Work Phone: [facility] 02-17-2025 15:30-0400 SaO2% (BldA) [Mass fraction] 94 % Dr. Ahsan Luna MD Work Phone: [facility] 02-17-2025 15:30-0400 Systolic blood pressure 127 mm[Hg] Dr. Ahsan Luna MD Work Phone: [facility] 11-15-2024 15:09-0500 Body height 157.[address] Ahsan Luna MD Work Phone: [facility] 11-15-2024 15:09-0500 Body mass index (BMI) [Ratio] 46 kg/m2 Dr. Ahsan Luna MD Work Phone: [facility] 11-15-2024 15:09-0500 Body temperature 98 [degF] Dr. Ahsan Luna MD Work Phone: [facility] 11-15-2024 15:09-0500 Body weight 114.[address] Ahsan Luna MD Work Phone: [facility] 11-15-2024 15:09-0500 Diastolic blood pressure 88 mm[Hg] Dr. Ahsan Luna MD Work Phone: [facility] 11-15-2024 15:09-0500 Heart rate 79 /min Dr. Ahsan Luna MD Work Phone: [facility] 11-15-2024 15:09-0500 Respiratory rate 18 /min Dr. Ahsan Luna MD Work Phone: [facility] 11-15-2024 15:09-0500 SaO2% (BldA) [Mass fraction] 97 % Dr. Ahsan Luna MD Work Phone: [facility] 11-15-2024 15:09-0500 Systolic blood pressure 152 mm[Hg] Dr. Ahsan Luna MD Work Phone: [facility] 09-27-2024 14:57-0500 Body mass index (BMI) [Ratio] 44.9 kg/m2 Dr. Ahsan Luna MD Work Phone: [facility] 09-27-2024 14:57-0500 Body weight 111.[address] Ahsan Luna MD Work Phone: [facility] 09-27-2024 14:57-0500 Diastolic blood pressure 82 mm[Hg] Dr. Ahsan Luna MD Work Phone: [facility] 09-27-2024 14:57-0500 Systolic blood pressure 140 mm[Hg] Dr. Ahsan Luna MD Work Phone: [facility] 01-12-2024 14:31-0400 Body height 157.[address] Ahsan Luna Work Phone: [facility] 01-12-2024 14:31-0400 Body mass index (BMI) [Ratio] 44.8 kg/m2 Dr. Ahsan Luna Work Phone: [facility] 01-12-2024 14:31-0400 Body temperature 97.3 [degF] Dr. Ahsan Luna Work Phone: [facility] 01-12-2024 14:31-0400 Body weight 111.[address] Ahsan Luna Work Phone: [facility] 01-12-2024 14:31-0400 Diastolic blood pressure 74 mm[Hg] Dr. Ahsan Luna Work Phone: [facility] 01-12-2024 14:31-0400 Heart rate 85 /min Dr. Ahsan Luna Work Phone: [facility] 01-12-2024 14:31-0400 Respiratory rate 16 /min Dr. Ahsan Luna Work Phone: [facility] 01-12-2024 14:31-0400 SaO2% (BldA) [Mass fraction] 97 % Dr. Ahsan Luna Work Phone: [facility] 01-12-2024 14:31-0400 Systolic blood pressure 134 mm[Hg] Dr. Ahsan Luna Work Phone: [facility] 09-22-2023 14:34-0500 Body height 157.[address] Ahsan Luna Work Phone: [facility] 09-22-2023 14:34-0500 Body mass index (BMI) [Ratio] 44 kg/m2 Dr. Ahsan Luna Work Phone: [facility] 09-22-2023 14:34-0500 Body weight 109.[address] Ahsan Luna Work Phone: [facility] 09-22-2023 14:34-0500 Diastolic blood pressure 80 mm[Hg] Dr. Ahsan Luna Work Phone: [facility] 09-22-2023 14:34-0500 Systolic blood pressure 130 mm[Hg] Dr. Ahsan Luna Work Phone: [facility] 08-21-2023 14:42-0500 Body height 157.[address] Ahsan Luna Work Phone: [facility] 08-21-2023 14:42-0500 Body mass index (BMI) [Ratio] 44 kg/m2 Dr. Ahsan Luna Work Phone: [facility] 08-21-2023 14:42-0500 Body temperature 97.1 [degF] Dr. Ahsan Luna Work Phone: [facility] 08-21-2023 14:42-0500 Body weight 109.[address] Ahsan Luna Work Phone: [facility] 08-21-2023 14:42-0500 Diastolic blood pressure 90 mm[Hg] Dr. Ahsan Luna Work Phone: [facility] 08-21-2023 14:42-0500 Heart rate 71 /min Dr. Ahsan Luna Work Phone: [facility] 08-21-2023 14:42-0500 Respiratory rate 16 /min Dr. Ahsan Luna Work Phone: [facility] 08-21-2023 14:42-0500 SaO2% (BldA) [Mass fraction] 97 % Dr. Ahsan Luna Work Phone: [facility] 08-21-2023 14:42-0500 Systolic blood pressure 158 mm[Hg] Dr. Ahsan Luna Work Phone: [facility] 06-29-2023 15:11-0400 Body height 157.[address] Ahsan Luna Work Phone: [facility] 06-29-2023 15:11-0400 Body mass index (BMI) [Ratio] 43.3 kg/m2 Dr. Ahsan Luna Work Phone: [facility] 06-29-2023 15:11-0400 Body temperature 98.4 [degF] Dr. Ahsan Luna Work Phone: [facility] 06-29-2023 15:11-0400 Body weight 107.[address] Ahsan Luna Work Phone: [facility] 06-29-2023 15:11-0400 Diastolic blood pressure 90 mm[Hg] Dr. Ahsan Luna Work Phone: [facility] 06-29-2023 15:11-0400 Heart rate 62 /min Dr. Ahsan Luna Work Phone: [facility] 06-29-2023 15:11-0400 Respiratory rate 16 /min Dr. Ahsan Luna Work Phone: [facility] 06-29-2023 15:11-0400 SaO2% (BldA) [Mass fraction] 96 % Dr. Ahsan Luna Work Phone: [facility] 06-29-2023 15:11-0400 Systolic blood pressure 140 mm[Hg] Dr. Ahsan Luna Work Phone: [facility] 09-09-2022 14:05-0500 Body height 157.[address] Ahsan Luna Work Phone: [facility] Work Phone: 09-09-2022 14:04-0500 Body mass index (BMI) [Ratio] 42.4 kg/m2 Dr. Ahsan Luna Work Phone: [facility] Work Phone: 09-09-2022 14:04-0500 Body weight 105.[address] Ahsan Luna Work Phone: [facility] Work Phone: 09-09-2022 14:04-0500 Diastolic blood pressure 62 mm[Hg] Dr. Ahsan Luna Work Phone: [facility] Work Phone: 09-09-2022 14:04-0500 Systolic blood pressure 131 mm[Hg] Dr. Ahsan Luna Work Phone: [facility] Work Phone: 08-17-2022 14:01-0500 Body height 157.[address] Ahsan Luna Work Phone: [facility] Work Phone: 08-17-2022 14:01-0500 Body mass index (BMI) [Ratio] 42.6 kg/m2 Dr. Ahsan Luna Work Phone: [facility] Work Phone: 08-17-2022 14:01-0500 Body temperature 97 [degF] Dr. Ahsan Luna Work Phone: [facility] Work Phone: 08-17-2022 14:01-0500 Body weight 105.[address] Ahsan Luna Work Phone: [facility] Work Phone: 08-17-2022 14:01-0500 Diastolic blood pressure 88 mm[Hg] Dr. Ahsan Luna Work Phone: [facility] Work Phone: 08-17-2022 14:01-0500 Heart rate 60 /min Dr. Ahsan Luna Work Phone: [facility] Work Phone: 08-17-2022 14:01-0500 Respiratory rate 16 /min Dr. Ahsan Luna Work Phone: [facility] Work Phone: 08-17-2022 14:01-0500 SaO2% (BldA) [Mass fraction] 98 % Dr. Ahsan Luna Work Phone: [facility] Work Phone: 08-17-2022 14:01-0500 Systolic blood pressure 126 mm[Hg] Dr. Ahsan Luna Work Phone: [facility] Work Phone: 06-22-2022 18:19-0400 Body mass index (BMI) [Ratio] 40.8 kg/m2 Dr. Ahsan Luna Work Phone: [facility] Work Phone: 06-22-2022 18:19-0400 Body temperature 98.1 [degF] Dr. Ahsan Luna Work Phone: [facility] Work Phone: 06-22-2022 18:19-0400 Body weight 101.[address] Ahsan Luna Work Phone: [facility] Work Phone: 06-22-2022 18:19-0400 Diastolic blood pressure 70 mm[Hg] Dr. Ahsan Luna Work Phone: [facility] Work Phone: 06-22-2022 18:19-0400 Heart rate 64 /min Dr. Ahsan Luna Work Phone: [facility] Work Phone: 06-22-2022 18:19-0400 Respiratory rate 14 /min Dr. Ahsan Luna Work Phone: [facility] Work Phone: 06-22-2022 18:19-0400 SaO2% (BldA) [Mass fraction] 97 % Dr. Ahsan Luna Work Phone: [facility] Work Phone: 06-22-2022 18:19-0400 Systolic blood pressure 122 mm[Hg] Dr. Ahsan Luna Work Phone: [facility] Work Phone: 03-04-2022 11:40-0400 Body height 157.[address] Ahsan Luna Work Phone: [facility] Work Phone: 03-04-2022 11:40-0400 Body mass index (BMI) [Ratio] 41.1 kg/m2 Dr. Ahsan Luna Work Phone: [facility] Work Phone: 03-04-2022 11:40-0400 Body weight 102.[address] Ahsan Luna Work Phone: [facility] Work Phone: 03-04-2022 11:40-0400 Diastolic blood pressure 78 mm[Hg] Dr. Ahsan Luna Work Phone: [facility] Work Phone: 03-04-2022 11:40-0400 Systolic blood pressure 112 mm[Hg] Dr. Ahsan Luna Work Phone: [facility] Work Phone: 03-04-2022 10:18-0400 Body mass index (BMI) [Ratio] 41.2 kg/m2 Dr. Ahsan Luna Work Phone: [facility] Work Phone: 03-04-2022 10:18-0400 Body temperature 97 [degF] Dr. Ahsan Luna Work Phone: [facility] Work Phone: 03-04-2022 10:18-0400 Body weight 102.[address] Ahsan Luna Work Phone: [facility] Work Phone: 03-04-2022 10:18-0400 Diastolic blood pressure 74 mm[Hg] Dr. Ahsan Luna Work Phone: [facility] Work Phone: 03-04-2022 10:18-0400 Heart rate 74 /min Dr. Ahsan Luna Work Phone: [facility] Work Phone: 03-04-2022 10:18-0400 Respiratory rate 18 /min Dr. Ahsan Luna Work Phone: [facility] Work Phone: 03-04-2022 10:18-0400 SaO2% (BldA) [Mass fraction] 96 % Dr. Ahsan Luna Work Phone: [facility] Work Phone: 03-04-2022 10:18-0400 Systolic blood pressure 136 mm[Hg] Dr. Ahsan Luna Work Phone: [facility] Work Phone: 02-15-2022 15:10-0400 Body mass index (BMI) [Ratio] 41.1 kg/m2 Dr. Ahsan Luna Work Phone: [facility] Work Phone: 02-15-2022 15:10-0400 Body temperature 98.5 [degF] Dr. Ahsan Luna Work Phone: [facility] Work Phone: 02-15-2022 15:10-0400 Body weight 102.[address] Ahsan Luna Work Phone: [facility] Work Phone: 02-15-2022 15:10-0400 Diastolic blood pressure 87 mm[Hg] Dr. Ahsan Luna Work Phone: [facility] Work Phone: 02-15-2022 15:10-0400 Heart rate 74 /min Dr. Ahsan Luna Work Phone: [facility] Work Phone: 02-15-2022 15:10-0400 Respiratory rate 15 /min Dr. Ahsan Luna Work Phone: [facility] Work Phone: 02-15-2022 15:10-0400 SaO2% (BldA) [Mass fraction] 92 % Dr. Ahsan Luna Work Phone: [facility] Work Phone: 02-15-2022 15:10-0400 Systolic blood pressure 157 mm[Hg] Dr. Ahsan Luna Work Phone: [facility] Work Phone: 08-25-2020 13:39-0500 Body mass index (BMI) [Ratio] 41.1 kg/m2 Dr. Ahsan Luna MD Work Phone: [facility] 08-25-2020 13:39-0500 Body temperature 97 [degF] Dr. Ahsan Luna MD Work Phone: [facility] 08-25-2020 13:39-0500 Diastolic blood pressure 79 mm[Hg] Dr. Ahsan Luna MD Work Phone: [facility] 08-25-2020 13:39-0500 Heart rate 65 /min Dr. Ahsan Luna MD Work Phone: [facility] 08-25-2020 13:39-0500 Respiratory rate 14 /min Dr. Ahsan Luna MD Work Phone: [facility] 08-25-2020 13:39-0500 SaO2% (BldA) [Mass fraction] 97 % Dr. Ahsan Luna MD Work Phone: [facility] 08-25-2020 13:39-0500 Systolic blood pressure 113 mm[Hg] Dr. Ahsan Luna MD Work Phone: [facility] 08-25-2020 12:39-0500 Body mass index (BMI) [Ratio] 41.1 kg/m2 Dr. Ahsan Luna Work Phone: [facility] Work Phone: 08-25-2020 12:39-0500 Body temperature 97 [degF] Dr. Ahsan Luna Work Phone: [facility] Work Phone: 08-25-2020 12:39-0500 Body weight 102.[address] Ahsan Luna Work Phone: [facility] Work Phone: 08-25-2020 12:39-0500 Diastolic blood pressure 79 mm[Hg] Dr. Ahsan Luna Work Phone: [facility] Work Phone: 08-25-2020 12:39-0500 Heart rate 65 /min Dr. Ahsan Luna Work Phone: [facility] Work Phone: 08-25-2020 12:39-0500 Respiratory rate 14 /min Dr. Ahsan Luna Work Phone: [facility] Work Phone: 08-25-2020 12:39-0500 SaO2% (BldA) [Mass fraction] 97 % Dr. Ahsan Luna Work Phone: [facility] Work Phone: 08-25-2020 12:39-0500 Systolic blood pressure 113 mm[Hg] Dr. Ahsan Luna Work Phone: [facility] Work Phone: 01-31-2018 06:51-0400 Body temperature 36.0 [facility] Comment on above: Performed By: #### LMCBD #### [facility] [address] [place] [address] 01-30-2018 17:12-0400 Body temperature 37.1 [facility] Comment on above: Performed By: #### LMCBD #### [facility] [address] [address] 01-29-2018 06:37-0400 Body temperature 37.2 [facility] Comment on above: Performed By: #### LMCBD #### [facility] [address] [address] 01-28-2018 13:05-0400 Body temperature 37.1 [facility] Comment on above: Performed By: #### GLMET #### [place] [address] 01-27-2018 15:42-0400 Body temperature 37.1 [facility] Comment on above: Performed By: #### LP8 #### [place] [address] 01-27-2018 08:19-0400 Body temperature 37.0 [facility] Comment on above: Performed By: #### ABG ####[place] [address] 01-26-2018 16:44-0400 Body temperature 37.0 [facility] Comment on above: Performed By: #### ABG ####[place] [address] 09-06-2017 10:25-0500 BMI (Body Mass Index) 44.1 kg/m2 [facility] Work Phone: 09-06-2017 10:25-0500 BP Diastolic 74 mm[Hg] [facility] Work Phone: 09-06-2017 10:25-0500 BP Systolic 116 mm[Hg] [facility] Work Phone: 09-06-2017 10:25-0500 Height 160.02 cm [facility] Work Phone: 09-06-2017 10:25-0500 Pulse (Heart Rate) 60 /min [facility] Work Phone: 09-06-2017 10:25-0500 Respiratory Rate 16 /min [facility] Work Phone: 09-06-2017 10:25-0500 Weight 112.95 kg [facility] Work Phone: 09-06-2017 10:25-0500 Weight 112.94 kg [facility] Work Phone: 08-23-2017 16:04-0500 BMI (Body Mass Index) 45.7 kg/m2 Ahsan Luna MD [facility] Work Phone: 08-23-2017 16:04-0500 Body Temperature 98.6 [degF] Ahsan Luna MD [facility] Work Phone: 08-23-2017 16:04-0500 BP Diastolic 82 mm[Hg] Ahsan Luna MD [facility] Work Phone: 08-23-2017 16:04-0500 BP Systolic 139 mm[Hg] Ahsan Luna MD [facility] Work Phone: 08-23-2017 16:04-0500 Height 160.02 cm Ahsan Luna MD [facility] Work Phone: 08-23-2017 16:04-0500 Pulse (Heart Rate) 74 /min Ahsan Luna MD [facility] Work Phone: 08-23-2017 16:04-0500 Respiratory Rate 18 /min Ahsan Luna MD [facility] Work Phone: 08-23-2017 16:04-0500 Weight 117.03 kg Ahsan Luna MD [facility] Work Phone: 07-31-2017 15:29-0400 BMI (Body Mass Index) 42.26 kg/m2 Ahsan Luna MD [facility] Work Phone: 07-31-2017 15:29-0400 BP Diastolic 82 mm[Hg] Ahsan Luna MD [facility] Work Phone: 07-31-2017 15:29-0400 BP Systolic 132 mm[Hg] Ahsan Luna MD [facility] Work Phone: 07-31-2017 15:29-0400 Height 165.1 cm Ahsan Luna MD [facility] Work Phone: 07-31-2017 15:29-0400 Weight 115.21 kg Ahsan Luna MD [facility] Work Phone: Encounters Encounter Date Encounter Type Care Provider Facility Start: 03-07-2025 End: 03-07-[address] Ahsan Luna MD -[facility] Work Phone: Start: 03-07-2025 End: 03-07-[address] Ahsan Luna MD Work Phone: [facility] Work Phone: Start: 02-17-2025 End: 02-17-[address] Tang Butler MD -[facility] Work Phone: Start: 02-17-2025 End: 02-17-2025 ambulatory Ahsan Luan Facility[place] Start: 02-10-2025 ambulatory Anca Leyva lity:[facility] Start: 02-10-[address] Tang Butler MD -[facility] Start: 12-13-2024 End: 12-13-[address] Ahsan Luna MD Work Phone: [facility] Work Phone: Start: 12-13-2024 End: 12-13-[address] Anca Valera MD -[facility] Work Phone: Start: 12-13-2024 End: 12-13-2024 ambulatory Anca Valera Facility:[facility] Start: 11-15-2024 End: 11-15-[address] Ahsan Luna MD -[facility] Work Phone: Start: 11-15-2024 End: 11-15-2024 ambulatory Ahsan Luna Facility:[facility] Start: 09-27-2024 Encounter for gynecological examination (general) (routine) with abnormal findings Anca Valera [facility] Start: 09-27-2024 End: 09-27-[address] Anca Valera MD -[facility] Start: 09-27-2024 End: 09-27-[address] Anca Valera MD -[facility] Work Phone: Start: 09-27-2024 End: 09-27-[address] Anca Valera MD [facility] Start: 09-27-2024 End: 09-27-2024 [facility] Start: 09-27-2024 End: 09-27-2024 ambulatory Anca Valera Facility:[facility] Start: 09-19-2024 Encounter for genera l adult medical examination without abnormal findings [facility] Start: 08-23-2024 End: 08-23-2024 ambulatory [facility] Facility:[facility] Start: 08-23-2024 End: 08-23-2024 [facility] Start: 01-12-2024 End: 01-12-[address] Ahsan Luna Work Phone: [facility] Work Phone: Start: 01-12-2024 End: 01-12-[address] Ahsan Luna Work Phone: [facility] Work Phone: Start: 12-08-2023 End: 12-08-[address] Ahsan Luna Work Phone: [facility] Work Phone: Start: 12-08-2023 End: 12-08-[address] Ahsan Luna Work Phone: [facility] Work Phone: Start: 09-22-2023 End: 09-22-[address] Ahsan Luna Work Phone: [facility] Work Phone: Start: 08-21-2023 End: 08-21-[address] Ahsan Luna Work Phone: [facility] Work Phone: Start: 08-21-2023 End: 08-21-2023 Encounter for general adult medical examination without abnormal findings Dr. Ahsan Luna Work Phone: [facility] Start: 08-21-2023 End: 08-21-[address] Ahsan Luna Work Phone: [facility] Work Phone: Start: 06-29-2023 End: 06-29-[address] Ahsan Luna Work Phone: [facility] Work Phone: Start: 06-29-2023 End: 06-29-[address] Ahsan Luna Work Phone: [facility] Work Phone: Start: 09-09-2022 End: 09-09-[address] Ahsan Luna Work Phone: [facility] Work Phone: Start: 09-09-2022 End: 09-09-[address] [facility] Start: 09-09-2022 End: 09-09-[address] Ahsan Luna Work Phone: [facility] Start: 08-17-2022 End: 08-17-[address] Ahsan Luna Work Phone: [facility] Work Phone: Start: 08-17-2022 End: 08-17-2022 Encounter for general adult medical examination without abnormal findings Dr. Ahsan Luna Work Phone: [facility] Start: 08-17-2022 End: 08-17-[address] Ahsan Luna Work Phone: [facility] Start: 06-22-2022 End: 06-22-[address] Ahsan Luna Work Phone: [facility] Start: 03-04-2022 End: 03-04-[address] [facility] Start: 03-04-2022 End: 03-04-[address] Ahsan Luna Work Phone: [facility] Start: 02-15-2022 End: 02-15-[address] Ahsan Luna Work Phone: [facility] Start: 02-08-[address] Mili Luna Work Phone: [facility] Start: 01-10-2022 End: 01-10-2022 ambulatory AHSAN LUNA [facility] Start: 11-26-2021 End: 11-26-[address] Ahsan Luna Work Phone: [facility] Start: 08-27-[address] Alana Luna Work Phone: [facility] Start: 01-03-2019 End: 01-03-2019 Patient encounter procedure TERRY DINICOLA Facility:[facility] Start: 07-12-2018 End: 07-12-2018 Patient encounter procedure TERRY DINICOLA Facility:[facility] Start: 04-19-2018 End: 04-19-2018 Patient encounter procedure TERRY DINICOLA Facility:[facility] Start: 03-15-2018 End: 03-15-2018 Patient encounter procedure TERRY DINICOLA Facility:[facility] Start: 01-26-2018 End: 02-08-2018 Evaluation and management of inpatient [facility] Facility:[facility] Start: 10-18-2017 End: 11-09-2017 Ambulatory BRENDA ([facility] Start: 09-27-2017 End: 10-09-2017 Ambulatory [facility] Start: 09-14-2017 End: 09-17-2017 Evaluation and management of inpatient [facility] Procedures Date Procedure Procedure Detail Performing Clinician Start: 02-10-[address] Ahsan Luna MD Work Phone: Start: 12-13-2024 Screening mammography Sayra Luna MD Work Phone: Start: 02-14-2024 Measurement of renal function Dr. Ahsan Luna MD Work Phone: Comment on above: GFR Calc Start: 12-08-2023 Screening mammography Sayra Luna Work Phone: Start: 11-26-2021 Screening mammography D mayda Luna Work Phone: Start: 01-27-2018 Antibody screen Comment on above: Performed By: #### T &S ####[place] [address] Start: 09-06-2017 End: 09-06-2017 Ecg routine ecg w/least 12 lds w/i&r Bhavesh Campos MD Start: 09-06-2017 End: 09-06-2017 Follow Up Appt 2 months Bhavesh Campos MD Start: 09-06-2017 End: 09-06-2017 MMM Bhavesh Campos MD Start: 08-23-2017 End: 08-28-2017 *BMP Ahsan Colbert Work Phone: Start: 08-23-2017 End: 08-30-2017 Hemoglobin A1c/Hemoglobin.total in Blood Ahsan Luna MD Work Phone: Start: 08-23-2017 End: 08-28-2017 Lipid 1996 panel - Serum or Plasma Ahsan Luna MD Work Phone: Start: 07-31-2017 End: 08-03-2017 Cancer Ag 125 [Units/volume] in Serum or Plasma Anca Valera MD Work Phone: Start: 07-31-2017 End: 08-01-2017 CBC W Auto Differential panel - Blood Anca Valera MD Work Phone: Start: 07-31-2017 End: 08-03-2017 Endometrial bx w/wo endocervix bx w/o dilat spx Anca Valera MD Work Phone: Start: 07-31-2017 End: 08-03-2017 Mammogram, screening Anca manzano MD Work Phone: Start: 07-31-2017 End: 08-03-2017 Pathology Anca Valera MD Work Phone: Urine culture Dr. Ahsan Luna Work Phone: Plan of Treatment Date Care Activity Detail Author Start: 11-06-2017 End: 11-06-2017 Appointment Appointment [facility] Work Phone: Start: 09-06-2017 End: 09-06-2017 Echocardiography Echocardiogram (complete) [facility] Work Phone: Start: 09-06-2017 End: 09-06-2017 Follow Up Appt 2 months Follow Up Appt 2 months [facility] Work Phone: Start: 09-06-2017 End: 09-06-2017 MMM MMM [facility] Work Phone: Start: 09-06-2017 End: 09-06-2017 Appointment Appointment [facility] Work Phone: Start: 08-23-2017 End: 08-23-2017 Appointment Appointment [facility] Work Phone: Start: 08-23-2017 End: 08-28-2017 *BMP *BMP [facility] Work Phone: Start: 08-23-2017 End: 08-23-2017 Follow Up Appt 3 months Follow Up Appt 3 months [facility] Work Phone: Start: 08-23-2017 End: 08-30-2017 Hemoglobin A1c/Hemoglobin.total mass fraction (Bld) *HgA1C [facility] Work Phone: Start: 08-23-2017 End: 08-28-2017 Lipid panel [AGGREGATE] *Lipid Profile [facility] Work Phone: Start: 08-03-2017 End: 08-03-2017 *CMP Complete Metabolic Panel *CMP Complete Metabolic Panel [facility] Work Phone: Start: 08-03-2017 End: 08-03-2017 Ct abdomen & pelvis w/o contrst 1/> body re CT Abdomen and pelvis; without and with contrast [facility] Work Phone: Start: 07-31-2017 End: 08-03-2017 Cancer antigen 125 *CA125 - Cancer Antigen (CA) 125 [facility] Work Phone: Start: 07-31-2017 End: 08-01-2017 CBC W Auto Differential panel - Blood *CBC [facility] Work Phone: Start: 07-31-2017 End: 08-03-2017 Endometrial bx w/wo endocervix bx w/o dilat spx Endometrial Biopsy [facility] Work Phone: Start: 07-31-2017 End: 08-03-2017 Mammogram, screening Mammogram, Screening, both breasts [facility] Work Phone: Start: 07-31-2017 End: 08-03-2017 Pathology Pathology [facility] Work Phone: DXA Bone [Mass/Area] Bone density [facility] Work Phone: MG Breast - bilatera l Screening [facility] Work Phone: Immunizations Immunization Date Immunization Notes Care Provider Fa [facility] 08-31-2021 Covid (Pfizer) Dr. Ahsan Luna MD Work Phone: [facility] 11-17-2020 Covid (Pfizer) Dr. Ahsan Luna Work Phone: [facility] 10-27-2020 Covid (Pfizer) Dr. Ahsan Luna Work Phone: [facility] 01-25-2018 tetanus toxoid, redu santosh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
== END 2025-04-27 14:49 | disposition home or self-care (01) ==
PROVIDERS: Emergency Provider Emergency Medicine; PCP Internal Medicine; Referring Provider Emergency Medicine; Visit Provider Emergency Medicine
DX: J40 Bronchitis, not specified as acute or chronic (principal); E11.9 Type 2 diabetes mellitus without complications; R06.02 Shortness of breath; Z85.42 Personal history of malignant neoplasm of other parts of uterus; I10 Essential (primary) hypertension; I89.0 Lymphedema, not elsewhere classified; E78.5 Hyperlipidemia, unspecified; F17.200 Nicotine dependence, unspecified, uncomplicated; Z79.82 Long term (current) use of aspirin; Z79.84 Long term (current) use of oral hypoglycemic drugs; Z79.899 Other long term (current) drug therapy
CPT/HCPCS: 71046; 80048; 83880; 84484; 85025; 93005; 94640; 96374; 99285; A4216

== ENCOUNTER → 2025-08-15 | Outpatient (CLI) | payer OTHER, SELFPAY ==
[2025-08-15 12:21] LABS: Hematocrit 40.1 % (37-47); Hemoglobin 12.0 g/dL (12.0-15.0); Immature Granulocytes Count 0.040 X10^3/uL (0.0-0.0); Mean Corp Hgb Conc 29.9 g/dL (32-36); Mean Corpuscular Volume 85.7 fL (81-99); Mean Platelet Vol. 10.4 fl (6.2-12.0); NRBC Flagged by Analyzer 0 % (0-5); Platelet Count 260 K/mm3 (150-450); RBC Distribution Width CV 15.0 % (11.6-14.6); RBC Distribution Width SD 46.8 fl (35.1-43.9); Red Blood Count 4.68 M/mm3 (4.2-5.4); White Blood Count 8.1 K/mm3 (4.4-11.0)
[2025-08-15 13:14] LABS: AST(SGOT) 15 U/L (<=31); Alanine Aminotransfer ALT/SGPT 9 U/L (<=34); Albumin, Serum 3.8 g/dL (3.4-4.8); Alkaline Phosphatase 83 U/L (35-104); Anion Gap 12 (5-15); BUN 21 mg/dL (4-19); BUN/Creat Ratio 27.7 RATIO (10-20); Calcium,Total 9.9 mg/dL (7.6-11.0); Carbon Dioxide 28.3 mmol/L (21.0-32.0); Chloride 96 mmol/L (98-108); Cholesterol 153 mg/dL (<=200); Globulin 3.6 g/dL (2.2-4.2); Glucose 211 mg/dL (70-99); Low Density Lipoprotein Calc. 81 mg/dL; Potassium 3.8 mmol/L (3.3-5.1); Triglycerides 174 mg/dL; Very Low Density Lipoprotein 35 mg/dL (5-40); cholesterol:hdl ratio screen 3.63
== END | disposition home or self-care (01) ==
LOC: MTLAB 10:00
PROVIDERS: PCP Internal Medicine; Referring Provider Nurse Practitioner Family; Visit Provider Nurse Practitioner Family
DX: Z00.00 Encounter for general adult medical examination without abnormal findings (principal); E11.42 Type 2 diabetes mellitus with diabetic polyneuropathy; E11.69 Type 2 diabetes mellitus with other specified complication; R60.0 Localized edema; E87.6 Hypokalemia; E78.5 Hyperlipidemia, unspecified
CPT/HCPCS: 36415; 80053; 80061; 83036; 85025